=== PATIENT | male | born 1960 | race Caucasian/White ===

== ENCOUNTER → 2019-12-11 | Outpatient (CLI) | payer MEDICARE ==
[2019-12-11 15:04] LABS: BASO # 0.1 (0.0-0.2); BASO % 0.7 % (0.0-2.0); EOS # 0.3 (0.0-0.7); EOS % 3.7 % (0-4.0); GRAN # 4.5 (1.4-6.5); GRAN % 53.6 % (42.2-75.2); HEMATOCRIT 42.2 % (42.0-52.0); HEMOGLOBIN 14.5 g/dl (13.5-18.0); LYMPH # 2.8 (1.2-3.4); LYMPH % 33.6 % (20.0-51.0); MEAN CELL VOLUME 101 fl (80.0-100.0); MEAN CORPUSCULAR HEMOGLOBIN 35 pg (27.0-31.0); MEAN CORPUSCULAR HGB CONC 34 g/dl (33.0-37.0); MEAN PLATELET VOLUME 9.5 fl (7.4-10.4); MONO # 0.7 (0.1-0.6); PLATELET COUNT 219 K/mm3 (130-400); RED BLOOD COUNT 4.19 M/mm3 (4.20-5.60)
[2019-12-11 15:07] LABS: ALBUMIN 4.1 gm/dL (3.5-5.0); BILIRUBIN,TOTAL 1.2 mg/dL (0.0-1.0); CHOLESTEROL RISK RATIO 6.8; CREATININE, serum 0.88 (0.66-1.25); POTASSIUM 4.6 mmol/L (3.4-5.0); TOTAL PROTEIN 7.2 gm/dL (6.4-8.2)
[2019-12-11 15:37] LABS: THYROID STIMULATING HORMONE 1.62 uIU/mL (0.465-4.680)
== END ==
LOC: COL.LAB 14:01
PROVIDERS: Physician Assistant
DX: Z12.5 Encounter for screening for malignant neoplasm of prostate (principal); Z13.29 Encounter for screening for other suspected endocrine disorder; Z13.6 Encounter for screening for cardiovascular disorders; I10 Essential (primary) hypertension

== ENCOUNTER 2019-12-26 19:34 | Observation (INO) | payer MEDICARE ==
[~2019-12-26] VITALS: Ht 170.2 cm; Wt 102.4 kg
[2019-12-26] MEDS ORDERED: PRINIVIL10 MG (19:39)
[2019-12-26] MEDS ORDERED: LOPRESSOR 225 MG/TAB (19:39)
[2019-12-26] MEDS ORDERED: FLEXERIL 1010 MG/TAB (19:45)
[2019-12-26] MEDS ORDERED: CYMBALTA 20MG20 MG (19:45)
[2019-12-26 20:26] LABS: BASO % 0.2 % (0.0-2.0); EOS % 0.1 % (0-4.0); GRAN % 73.8 % (42.2-75.2); HEMATOCRIT 42.3 % (42.0-52.0); HEMOGLOBIN 15.5 g/dl (13.5-18.0); LYMPH # 1.8 (1.2-3.4); MEAN CELL VOLUME 95 fl (80.0-100.0); MEAN CORPUSCULAR HEMOGLOBIN 35 pg (27.0-31.0); MEAN CORPUSCULAR HGB CONC 37 g/dl (33.0-37.0); MEAN PLATELET VOLUME 9.6 fl (7.4-10.4); MONO # 0.6 (0.1-0.6); MONO % 6.7 % (1.7-9.3); PLATELET COUNT 209 K/mm3 (130-400); RED BLOOD COUNT 4.45 M/mm3 (4.20-5.60); REDCELL DISTRIBUTION WIDTH-CV 11.7 % (11.5-14.5)
[2019-12-26 20:44] LABS: ALANINE AMINOTRANSFERASE 27 U/L (4-49); ALBUMIN 4.8 gm/dL (3.5-5.0); ALKALINE PHOSPHATASE 115 U/L (50-136); ANION GAP 12 mmol/L (7-16); AST,SGOT 35 U/L (15-37); BILIRUBIN,TOTAL 2.2 mg/dL (0.0-1.0); BLOOD UREA NITROGEN 14 mg/dL (9-20); CALCIUM 9.2 mg/dL (8.4-10.2); CARBON DIOXIDE 22 mmol/L (22-30); CHLORIDE 103 mmol/L (98-107); GLUCOSE 106 mg/dL (74-106); POTASSIUM 3.9 mmol/L (3.4-5.0); SODIUM 137 mmol/L (137-145); TOTAL PROTEIN 8.1 gm/dL (6.4-8.2)
[2019-12-26 20:56] LABS: TROPONIN-I < 0.012 ng/mL (0.000-0.035)
[2019-12-26 21:41] LABS: COLLECTION METHOD CLEAN CATCH
[2019-12-26 21:47] LABS: MUCOUS Present /lpf; PH 5 (5-8); SQUAMOUS EPITHELIAL None Seen /hpf; URINE APPEARANCE Clear; URINE BACTERIA None Seen /hpf; URINE BILIRUBIN Negative (NEGATIVE); URINE BLOOD 1+ (NEGATIVE); URINE COLOR Yellow; URINE GLUCOSE Negative (NEGATIVE); URINE KETONE Trace (NEGATIVE); URINE LEUKOCYTE ESTERASE Negative (NEGATIVE); URINE NITRATE Negative (NEGATIVE); URINE PROTEIN(semi-quant) 1+ (NEGATIVE); URINE UROBILINOGEN Negative (NEGATIVE)
[2019-12-26 22:44] LABS: TRICYCLIC ANTIDEPRESS URINE POSITIVE
[2019-12-27] VITALS (12 sets, daily range): BP systolic 127–179; BP diastolic 69–104; PULSE 64–77; TEMP 97.6–98.8
[2019-12-27] MEDS ORDERED: NORCO 325 MG-7.1 TAB PO (01:29)
[2019-12-27] MEDS ORDERED: ATIVAN2 MG PO (01:29)
--- NOTE | 2019-12-27 01:41 | NUR ---
ADMITTED FROM E.D. WITH Dx OF [facility] AND FLUXUATING BLOOD PRESSURES. SEE 5 PAGE ADMISSION ASSESSMENT.
[2019-12-27 06:34] LABS: BASO % 0.3 % (0.0-2.0); EOS # 0.2 (0.0-0.7); EOS % 1.8 % (0-4.0); GRAN # 5.2 (1.4-6.5); HEMOGLOBIN 14.7 g/dl (13.5-18.0); LYMPH # 3.4 (1.2-3.4); LYMPH % 35.5 % (20.0-51.0); MEAN CELL VOLUME 97 fl (80.0-100.0); MEAN CORPUSCULAR HEMOGLOBIN 35 pg (27.0-31.0); MEAN CORPUSCULAR HGB CONC 36 g/dl (33.0-37.0); MEAN PLATELET VOLUME 9.8 fl (7.4-10.4); MONO # 0.8 (0.1-0.6); MONO % 8.2 % (1.7-9.3); PLATELET COUNT 210 K/mm3 (130-400); RED BLOOD COUNT 4.22 M/mm3 (4.20-5.60)
[2019-12-27 06:46] LABS: ALANINE AMINOTRANSFERASE 24 U/L (4-49); ALBUMIN 4.5 gm/dL (3.5-5.0); ALKALINE PHOSPHATASE 98 U/L (50-136); ANION GAP 11 mmol/L (7-16); AST,SGOT 37 U/L (15-37); BILIRUBIN,TOTAL 2.3 mg/dL (0.0-1.0); BLOOD UREA NITROGEN 12 mg/dL (9-20); CARBON DIOXIDE 21 mmol/L (22-30); CHLORIDE 106 mmol/L (98-107); CHOLESTEROL 229 mg/dL (120-200); CHOLESTEROL RISK RATIO 7.6; CREATININE, serum 0.72 (0.66-1.25); GLUCOSE 97 mg/dL (74-106); HDL CHOLESTEROL 30 mg/dL; LDL CHOLESTEROL 177 mg/dL; POTASSIUM 3.5 mmol/L (3.4-5.0); SODIUM 138 mmol/L (137-145); TOTAL PROTEIN 7.5 gm/dL (6.4-8.2); TRIGLYCERIDE 112 mg/dL
[2019-12-27 06:58] LABS: TROPONIN-I < 0.012 ng/mL (0.000-0.035)
--- NOTE | 2019-12-27 12:30 | NUR ---
Patients BP was elevated this am. Ativan given once and that seemed to help. Patient has been resting most the morning. He is having increased back pain with right thigh pain. No complaints of nausea. Patient stated he keeps hearing people talking in the room. He stated he has been having hallucinations recently. Physician aware. He is being started on lopressor. Left message [facility] to get patients home med list to know his doses, no return phone call yet. No other changes at this time. Call light within reach.
--- NOTE | 2019-12-27 13:07 | NUR ---
SW met with patient to complete intake. Patient provides that he lives at the [facility], and that he has a SW that is assisting him with finding an apartment so that he will not have to live [facility] the [facility]. Patient is concerned about not having a place to stay upon DC. SW called the [facility]dc and confirmed with staff that patient will still have his same place to stay when he discharges from the hospital. [facility] #[phone]. Staff provided they will need to have DC orders faxed to them when patient discharges. Patient states that he did utilize a cane before, but lost it a time back and was unable to retrieve. Patient states that he is independent with ADL's. PCP is Dr. Grover [facility], and pharmacy is [facility] Patient states that he would appoint his son Dee to be his DPOA-HC, but is unsure of where he is at this time. His number is [phone]. Patient states that he is not concerned about DC when that time comes, he would like SW to contact his SW at [facility] to see if she is working on his apartment and food stamp needs. SW will continue to follow.
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
--- NOTE | 2019-12-27 19:40 | NUR ---
Pt. sitting up in bed at this time. Pt. is A&OX3, assessment complete. IV to rt. hand patent, IV fluids infusing per orders. Pt. reports pain to lower back at a 6 on pain scale, will give pain meds per orders. Pt. denies further needs, call light within reach.
[2019-12-28 01:35] VITALS: BP 152/87; PULSE 63; TEMP 97.5
[2019-12-28 03:51] VITALS: BP 135/94; PULSE 70; TEMP 98.1
[2019-12-28 07:38] VITALS: BP 141/69; PULSE 74; TEMP 98
--- NOTE | 2019-12-28 08:00 | NUR ---
Patient resting in bed eating breakfast at this time. Patient is alert but confused. Patient is cooperative and easily re-directable. Patient does appear to be having minor and mild hallucinations, re orients easily. Patient requests medication for his nerves, administered PRN ativan per detox protocol score. Patient denies further needs at this time, call light within reach, bed alarm on.
[2019-12-28 09:48] VITALS: BP 162/104; PULSE 83; TEMP 98.3
[2019-12-28] MEDS ORDERED: PRINIVIL20 MG PO (10:35)
[2019-12-28] MEDS ORDERED: LOPRESSOR 225 MG/TAB PO (10:36)
[2019-12-28 11:50] VITALS: BP 164/86; PULSE 75; TEMP 98.4
--- NOTE | 2019-12-28 12:15 | NUR ---
Patient removed IV. Catheter appears intact, hemostasis achieved. Discharge teaching completed. Informed patient that a taxi had been called for him, will escort patient to ED entrance when taxi arrives.
--- NOTE | 2019-12-28 12:38 | NUR ---
Initial visit; Patient anxious and talkative. Yenni shared his current problems and thanked Well Service Floorperson for listening and offering suggestions that may help and prayer. Patient states he prays and appeared to hear Well Service Floorperson when she mentioned that God is working through his nurses and Care Management Team to help him find solutions to the issues that brought him here to [place].
--- NOTE | 2019-12-28 13:15 | NUR ---
Patient escorted to ED entrance where he entered a private vehicle.
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
== END 2019-12-28 13:15 | disposition home or self-care (01) ==
LOC: COL.ER 19:34 → SURG 22:05 → ICU 22:05 → COL.ER 22:05 → SURG 12-28 13:15
PROVIDERS: Emergency Medicine; Physician Assistant; ADMIT Student in an Organized Health Care Education/Training Program
DX: I16.0 Hypertensive urgency (principal); G89.29 Other chronic pain; M54.40 Lumbago with sciatica, unspecified side; R25.1 Tremor, unspecified; F17.210 Nicotine dependence, cigarettes, uncomplicated; F20.9 Schizophrenia, unspecified; F10.10 Alcohol abuse, uncomplicated; E80.7 Disorder of bilirubin metabolism, unspecified; Z79.899 Other long term (current) drug therapy; R61 Generalized hyperhidrosis
CPT/HCPCS: G0008; G0378; J1885; J2060; J7030; J7050

== ENCOUNTER 2019-12-30 15:51 | Emergency (ER) | payer MEDICARE ==
[~2019-12-30] VITALS: Ht 172.7 cm; Wt 102.3 kg
[~2019-12-30 15:51] MED LIST: ATIVAN2 MG PO; CYMBALTA 20MG20 MG; FLEXERIL 1010 MG/TAB; LOPRESSOR 225 MG/TAB; LOPRESSOR 225 MG/TAB PO; NORCO 325 MG-7.1 TAB PO; PRINIVIL10 MG; PRINIVIL20 MG PO
[2019-12-30 15:55] VITALS: TEMP 98.6
[2019-12-30 16:25] LABS: BASO % 0.4 % (0.0-2.0); EOS % 0.4 % (0-4.0); GRAN # 7.3 (1.4-6.5); GRAN % 72.9 % (42.2-75.2); HEMATOCRIT 41.1 % (42.0-52.0); HEMOGLOBIN 14.9 g/dl (13.5-18.0); LYMPH # 1.8 (1.2-3.4); MEAN CELL VOLUME 96 fl (80.0-100.0); MEAN CORPUSCULAR HEMOGLOBIN 35 pg (27.0-31.0); MEAN CORPUSCULAR HGB CONC 36 g/dl (33.0-37.0); MEAN PLATELET VOLUME 9.6 fl (7.4-10.4); MONO # 0.8 (0.1-0.6); PLATELET COUNT 207 K/mm3 (130-400); REDCELL DISTRIBUTION WIDTH-CV 11.7 % (11.5-14.5)
[2019-12-30 16:28] LABS: INR 1.1 (0.8-3.0); PROTHROMBIN TIME 12.3 SECONDS (9.7-12.8)
[2019-12-30 16:31] LABS: PARTIAL THROMBOPLASTIN TIME 31.9 SECONDS (26.0-37.0)
[2019-12-30 16:39] LABS: ALANINE AMINOTRANSFERASE 32 U/L (4-49); ALBUMIN 4.7 gm/dL (3.5-5.0); ALKALINE PHOSPHATASE 107 U/L (50-136); ANION GAP 11 mmol/L (7-16); AST,SGOT 39 U/L (15-37); BILIRUBIN,TOTAL 2.2 mg/dL (0.0-1.0); BLOOD UREA NITROGEN 10 mg/dL (9-20); CALCIUM 9.3 mg/dL (8.4-10.2); CARBON DIOXIDE 22 mmol/L (22-30); CHLORIDE 104 mmol/L (98-107); CREATININE, serum 0.68 (0.66-1.25); GLUCOSE 114 mg/dL (74-106); POTASSIUM 3.5 mmol/L (3.4-5.0); SODIUM 137 mmol/L (137-145); TOTAL PROTEIN 7.8 gm/dL (6.4-8.2)
[2019-12-30 16:52] LABS: TROPONIN-I < 0.012 ng/mL (0.000-0.035)
[2019-12-30 21:11] VITALS: BP 161/105; PULSE 89
== END 2019-12-30 21:26 | disposition home or self-care (01) ==
LOC: COL.ER 15:51
PROVIDERS: Family Medicine
DX: R07.89 Other chest pain (principal); I10 Essential (primary) hypertension
CPT/HCPCS: J2060

== ENCOUNTER 2020-02-09 07:00 | Emergency (ER) | payer MEDICARE ==
[~2020-02-09] VITALS: Ht 172.7 cm; Wt 102.7 kg
[~2020-02-09 07:00] MED LIST changes: +FLEXERIL 1010 MG/TAB PO; +LIPITOR20 MG PO
[2020-02-09 07:53] LABS: BASO # 0.1 (0.0-0.2); BASO % 0.6 % (0.0-2.0); EOS # 0.5 (0.0-0.7); EOS % 4.9 % (0-4.0); GRAN # 4.5 (1.4-6.5); GRAN % 47.4 % (42.2-75.2); HEMATOCRIT 43.4 % (42.0-52.0); HEMOGLOBIN 15.1 g/dl (13.5-18.0); LYMPH # 3.6 (1.2-3.4); LYMPH % 37.7 % (20.0-51.0); MEAN CELL VOLUME 98 fl (80.0-100.0); MEAN CORPUSCULAR HEMOGLOBIN 34 pg (27.0-31.0); MEAN CORPUSCULAR HGB CONC 35 g/dl (33.0-37.0); MONO # 0.9 (0.1-0.6); MONO % 9.1 % (1.7-9.3); PLATELET COUNT 175 K/mm3 (130-400); RED BLOOD COUNT 4.41 M/mm3 (4.20-5.60); REDCELL DISTRIBUTION WIDTH-CV 12.6 % (11.5-14.5)
[2020-02-09 08:00] LABS: ALANINE AMINOTRANSFERASE 31 U/L (4-49); ALBUMIN 4.5 gm/dL (3.5-5.0); ALKALINE PHOSPHATASE 108 U/L (50-136); ANION GAP 8 mmol/L (7-16); AST,SGOT 49 U/L (15-37); BILIRUBIN,TOTAL 1.9 mg/dL (0.0-1.0); BLOOD UREA NITROGEN 29 mg/dL (9-20); CALCIUM 9.2 mg/dL (8.4-10.2); CARBON DIOXIDE 23 mmol/L (22-30); CHLORIDE 107 mmol/L (98-107); CREATININE, serum 0.94 (0.66-1.25); GLUCOSE 110 mg/dL (74-106); POTASSIUM 3.8 mmol/L (3.4-5.0); SODIUM 139 mmol/L (137-145); TOTAL PROTEIN 7.6 gm/dL (6.4-8.2)
[2020-02-09 08:12] LABS: ACETAMINOPHEN < 10 ug/mL (10-30); ALCOHOL(ethanol),MEDICAL < 10 mg/dL; SALICYLATE < 1.0 mg/dL
[2020-02-09 08:55] LABS: COLLECTION METHOD CLEAN CATCH
[2020-02-09 09:00] LABS: MUCOUS Present /lpf; PH 5 (5-8); SQUAMOUS EPITHELIAL 0-2 /hpf; URINE APPEARANCE Clear; URINE BACTERIA None Seen /hpf; URINE BILIRUBIN Negative (NEGATIVE); URINE BLOOD Negative (NEGATIVE); URINE COLOR Yellow; URINE GLUCOSE Negative (NEGATIVE); URINE KETONE Negative (NEGATIVE); URINE LEUKOCYTE ESTERASE Negative (NEGATIVE); URINE NITRATE Negative (NEGATIVE); URINE PROTEIN(semi-quant) Negative (NEGATIVE); URINE RBC 0-2 /hpf; URINE UROBILINOGEN Negative (NEGATIVE)
[2020-02-09 09:10] LABS: TRICYCLIC ANTIDEPRESS URINE NEGATIVE
[2020-02-09 19:39] VITALS: TEMP 98.4
[2020-02-09 21:26] LABS: BASO # 0.1 (0.0-0.2); BASO % 0.9 % (0.0-2.0); EOS # 0.4 (0.0-0.7); EOS % 6.5 % (0-4.0); GRAN # 2.3 (1.4-6.5); GRAN % 35.1 % (42.2-75.2); HEMOGLOBIN 14.3 g/dl (13.5-18.0); LYMPH # 3.2 (1.2-3.4); LYMPH % 50.4 % (20.0-51.0); MEAN CELL VOLUME 100 fl (80.0-100.0); MEAN CORPUSCULAR HEMOGLOBIN 34 pg (27.0-31.0); MEAN CORPUSCULAR HGB CONC 34 g/dl (33.0-37.0); MONO # 0.4 (0.1-0.6); MONO % 6.8 % (1.7-9.3); PLATELET COUNT 156 K/mm3 (130-400); RED BLOOD COUNT 4.19 M/mm3 (4.20-5.60)
[2020-02-09 21:34] LABS: BILIRUBIN,TOTAL 2.9 mg/dL (0.0-1.0); CALCIUM 8.7 mg/dL (8.4-10.2); CREATININE, serum 0.99 (0.66-1.25); TOTAL PROTEIN 6.8 gm/dL (6.4-8.2)
[2020-02-09 23:42] VITALS: BP 118/71; PULSE 65
[2020-02-10 00:10] LABS: ARTERIAL BLD GAS O2 SATURATION 94.3 % (92-100); ARTERIAL BLD GAS TCO2 CT 25.8; ARTERIAL BLOOD GAS BASE EXCESS -1.1 (-2-2); ARTERIAL BLOOD GAS HCO3 24.5 meq/L (22-26); ARTERIAL BLOOD GAS PCO2 44.2 mmHg (35-45); ARTERIAL BLOOD GAS pH 7.36 (7.35-7.45)
== END 2020-02-09 23:42 | disposition home or self-care (01) ==
LOC: COL.ER 07:00
PROVIDERS: Emergency Medicine; Family Medicine
DX: R44.0 Auditory hallucinations (principal); F15.10 Other stimulant abuse, uncomplicated; M54.32 Sciatica, left side; M54.31 Sciatica, right side; G89.29 Other chronic pain
CPT/HCPCS: J1170; J1885; J7030

== ENCOUNTER 2020-02-18 10:08 | Emergency (ER) | payer MEDICARE ==
[~2020-02-18] VITALS: Ht 172.7 cm; Wt 90.9 kg
[2020-02-18 10:12] VITALS: TEMP 97.6
[2020-02-18 11:46] LABS: PROTHROMBIN TIME 10.6 SECONDS (9.7-12.8)
[2020-02-18 11:50] LABS: BASO % 0.6 % (0.0-2.0); EOS # 0.1 (0.0-0.7); GRAN # 3.7 (1.4-6.5); GRAN % 56.4 % (42.2-75.2); HEMATOCRIT 39.7 % (42.0-52.0); LYMPH % 29.9 % (20.0-51.0); MEAN CELL VOLUME 98 fl (80.0-100.0); MEAN CORPUSCULAR HEMOGLOBIN 35 pg (27.0-31.0); MEAN CORPUSCULAR HGB CONC 35 g/dl (33.0-37.0); MEAN PLATELET VOLUME 9.8 fl (7.4-10.4); MONO # 0.7 (0.1-0.6); MONO % 10.2 % (1.7-9.3); PLATELET COUNT 212 K/mm3 (130-400); RED BLOOD COUNT 4.05 M/mm3 (4.20-5.60); REDCELL DISTRIBUTION WIDTH-CV 12.7 % (11.5-14.5)
[2020-02-18 12:09] LABS: ALANINE AMINOTRANSFERASE 74 U/L (4-49); ALBUMIN 3.9 gm/dL (3.5-5.0); ALKALINE PHOSPHATASE 99 U/L (50-136); ANION GAP 6 mmol/L (7-16); AST,SGOT 85 U/L (15-37); BILIRUBIN,TOTAL 0.9 mg/dL (0.0-1.0); BLOOD UREA NITROGEN 17 mg/dL (9-20); CALCIUM 8.8 mg/dL (8.4-10.2); CARBON DIOXIDE 25 mmol/L (22-30); CHLORIDE 105 mmol/L (98-107); CREATININE, serum 0.68 (0.66-1.25); GLUCOSE 109 mg/dL (74-106); POTASSIUM 4.5 mmol/L (3.4-5.0); SODIUM 137 mmol/L (137-145); TOTAL PROTEIN 6.5 gm/dL (6.4-8.2)
[2020-02-18 12:23] LABS: TROPONIN-I < 0.012 ng/mL (0.000-0.035)
[2020-02-18 14:32] VITALS: BP 176/106; PULSE 59
== END 2020-02-18 14:30 | disposition home or self-care (01) ==
LOC: COL.ER 10:08
PROVIDERS: Nurse Practitioner Primary Care
DX: M54.5 Low back pain (principal); I10 Essential (primary) hypertension; F17.210 Nicotine dependence, cigarettes, uncomplicated
CPT/HCPCS: J0595

== ENCOUNTER 2020-08-04 16:26 | Emergency (ER) | payer MEDICARE ==
[~2020-08-04] VITALS: Ht 172.7 cm; Wt 113.6 kg
[2020-08-04 16:27] VITALS: TEMP 98
[2020-08-04 16:49] LABS: BASO % 0.7 % (0.0-2.0); EOS % 0.5 % (0-4.0); GRAN # 2.2 (1.4-6.5); GRAN % 53.8 % (42.2-75.2); HEMATOCRIT 45.6 % (42.0-52.0); HEMOGLOBIN 16.8 g/dl (13.5-18.0); LYMPH # 1.3 (1.2-3.4); LYMPH % 30.8 % (20.0-51.0); MEAN CELL VOLUME 98 fl (80.0-100.0); MEAN CORPUSCULAR HEMOGLOBIN 36 pg (27.0-31.0); MEAN CORPUSCULAR HGB CONC 37 g/dl (33.0-37.0); MONO # 0.6 (0.1-0.6); PLATELET COUNT 100 K/mm3 (130-400); RED BLOOD COUNT 4.66 M/mm3 (4.20-5.60); REDCELL DISTRIBUTION WIDTH-CV 11.6 % (11.5-14.5)
[2020-08-04 16:58] LABS: ALBUMIN 4.2 gm/dL (3.5-5.0); CALCIUM 8.4 mg/dL (8.4-10.2); CREATININE, serum 0.54 (0.66-1.25); POTASSIUM 3.1 mmol/L (3.4-5.0); TOTAL PROTEIN 7.6 gm/dL (6.4-8.2)
[2020-08-04 17:09] LABS: TROPONIN-I 0.019 ng/mL (0.000-0.035)
[2020-08-04 17:45] VITALS: BP 156/119; PULSE 74
== END 2020-08-04 17:45 | disposition home or self-care (01) ==
LOC: COL.ER 16:26
PROVIDERS: Emergency Medicine
DX: F10.20 Alcohol dependence, uncomplicated (principal); F20.9 Schizophrenia, unspecified; Y90.8 Blood alcohol level of 240 mg/100 ml or more
CPT/HCPCS: J1885; J2060; J7030

== ENCOUNTER 2020-09-24 11:07 | Inpatient (IN) | payer MEDICARE ==
[~2020-09-24] VITALS: Ht 167.6 cm; Wt 97.2 kg
[2020-09-24 11:34] LABS: BASO % 0.9 % (0.0-2.0); EOS % 0.2 % (0-4.0); GRAN % 68.2 % (42.2-75.2); LYMPH # 0.9 (1.2-3.4); LYMPH % 20.5 % (20.0-51.0); MEAN CELL VOLUME 98 fl (80.0-100.0); MEAN CORPUSCULAR HEMOGLOBIN 36 pg (27.0-31.0); MEAN CORPUSCULAR HGB CONC 36 g/dl (33.0-37.0); MONO # 0.4 (0.1-0.6); MONO % 9.7 % (1.7-9.3); PLATELET COUNT 120 K/mm3 (130-400); RED BLOOD COUNT 4.51 M/mm3 (4.20-5.60); REDCELL DISTRIBUTION WIDTH-CV 12.2 % (11.5-14.5)
[2020-09-24 12:12] LABS: PROTHROMBIN TIME 10.9 SECONDS (9.7-12.8)
[2020-09-24 12:20] LABS: ALBUMIN 3.9 gm/dL (3.5-5.0); BILIRUBIN,TOTAL 2.7 mg/dL (0.0-1.0); CALCIUM 7.8 mg/dL (8.4-10.2); CREATININE, serum 0.53 (0.66-1.25); TOTAL PROTEIN 7.1 gm/dL (6.4-8.2)
[2020-09-24 12:28] LABS: POTASSIUM 2.9 mmol/L (3.4-5.0)
[2020-09-24 13:16] LABS: TROPONIN-I 0.048 ng/mL (0.000-0.035)
--- NOTE | 2020-09-24 17:00 | NUR ---
Pt arrived to floor via w/c at this time with ER staff. Nithin but oriented, will continue to monitor.
[2020-09-24 17:15] VITALS: BP 159/95; PULSE 111; TEMP 99.2
[2020-09-24 18:26] LABS: COLLECTION METHOD CLEAN CATCH
[2020-09-24 18:41] LABS: TRICYCLIC ANTIDEPRESS URINE NEGATIVE
[2020-09-24 18:42] LABS: MUCOUS Present /lpf; PH 6 (5-8); SQUAMOUS EPITHELIAL 0-2 /hpf; URINE APPEARANCE Clear; URINE BACTERIA None Seen /hpf; URINE BILIRUBIN Negative (NEGATIVE); URINE BLOOD 2+ (NEGATIVE); URINE COLOR Amber; URINE GLUCOSE Negative (NEGATIVE); URINE KETONE Trace (NEGATIVE); URINE LEUKOCYTE ESTERASE Negative (NEGATIVE); URINE NITRATE Negative (NEGATIVE); URINE PROTEIN(semi-quant) 2+ (NEGATIVE); URINE UROBILINOGEN >=4.0 mg/dL (NEGATIVE); URINE WBC 0-2 /hpf
--- NOTE | 2020-09-24 19:18 | NUR ---
Pt has been very anxious and tremulous since arriving, called Paddy and received IV Ativan orders. PT is oriented but very shakey and having a hard time feeling anxious about detoxing. Agreeable to plan of care, report given to nightshift nruse who will resume care.
[2020-09-24 19:27] VITALS: BP 183/105; PULSE 118; TEMP 99.4
--- NOTE | 2020-09-24 19:52 | NUR ---
Upon taking report patient visably shaking, increased anxiety, denies auditory or visual hallucinations, updated family and patient on ETOH withdrawl protocol, Ativan 2mg IV given will monitor.
--- NOTE | 2020-09-24 19:53 | NUR ---
Chantelle MORRIS called re: elevated pulse/B/P, withdrawl symptoms and score, NON: Give another Ativan 2mg IVP now. - updated patient on plan.
[2020-09-24 20:29] VITALS: BP 155/97
[2020-09-24 22:06] VITALS: BP 161/117; PULSE 107; TEMP 98.6
[2020-09-24 22:43] VITALS: BP 148/92; PULSE 112
[2020-09-25] VITALS (193 sets, daily range): BP systolic 118–180; BP diastolic 81–113; PULSE 85–118; TEMP 97.3–100.4; O2SAT 90–100
--- NOTE | 2020-09-25 02:28 | NUR ---
Updated Chantelle Stuart on patient status, B/P, withdrawl score, updated son on patient condition. Patient is currently awake, alert, oriented x 4, able to verbalize needs, c/o back pain- prn medication given, following simple commands, updated patient on plan of care.
--- NOTE | 2020-09-25 07:00 | NUR ---
Report received from DC Guzmán.PT in bed resting, requesting pain meds for foot burning pain. Will provide when available.
--- NOTE | 2020-09-25 08:00 | NUR ---
Assessment charted. PT c/o pain to feet bilaterally that is burning and 10/10 pain meds provided. PT is oriented mostly but intermittently confused and is impulsive inbed. Tachycardic, hypertensive, did hallucinat over night, tremulous, diaphoretic and did not rest well. Critical lab values reported to [place] with hospitalist. INT to L and R hands, will provide meds per CIWA protocol, and PRN as requested. WIll continue to monitor.
[2020-09-25 08:01] LABS: CHOLESTEROL RISK RATIO 2.1
[2020-09-25 08:11] LABS: BASO % 0.9 % (0.0-2.0); EOS % 0.9 % (0-4.0); GRAN % 58.4 % (42.2-75.2); HEMATOCRIT 38.6 % (42.0-52.0); LYMPH # 1.1 (1.2-3.4); LYMPH % 31.4 % (20.0-51.0); MEAN CELL VOLUME 101 fl (80.0-100.0); MEAN CORPUSCULAR HGB CONC 35 g/dl (33.0-37.0); MEAN PLATELET VOLUME 11.6 fl (7.4-10.4); MONO # 0.3 (0.1-0.6); MONO % 7.8 % (1.7-9.3); RED BLOOD COUNT 3.84 M/mm3 (4.20-5.60); REDCELL DISTRIBUTION WIDTH-CV 12.4 % (11.5-14.5)
[2020-09-25 08:18] LABS: ALBUMIN 3.5 gm/dL (3.5-5.0); BILIRUBIN,TOTAL 3.1 mg/dL (0.0-1.0); CALCIUM 7.6 mg/dL (8.4-10.2); CREATININE, serum 0.52 (0.66-1.25); TOTAL PROTEIN 6.5 gm/dL (6.4-8.2)
[2020-09-25 08:26] LABS: POTASSIUM 2.8 mmol/L (3.4-5.0)
[2020-09-25 08:42] LABS: TSH w REFLEX 4.33 uIU/mL (0.465-4.680)
[2020-09-25 09:05] LABS: HEMOGLOBIN 13.5 g/dl (13.5-18.0); MEAN CORPUSCULAR HEMOGLOBIN 35 pg (27.0-31.0)
[2020-09-25 09:07] LABS: PLATELET COUNT 49 K/mm3 (130-400)
[2020-09-25 09:43] LABS: INR 1.1 (0.8-3.0)
--- NOTE | 2020-09-25 14:27 | NUR ---
Pt pulled out own IV, appears to be confused and having a hard time tracking
--- NOTE | 2020-09-25 15:17 | NUR ---
Sw met with pt to complete his in intake assesessement. Sw was not able to get full assessment due to the pt was in a lot of pain and was confused when answering questions. Sw was able to speak to his son, Redd Shearer (ph# [phone]). The son informed pt that he is detoxing and this time it is worst and he thinks he needs to be able to make decisions for his dad. The son informed the Sw that he would like to get a DPOA-HC made. The Sw informed the son, due to the pt being confused and out of it that we could not make one at this time. The son was agreeable to wait until he was better. The son thinks that his dad would benefit from inpatient rehab. The son also informed the Sw that he would like to do family therapy with his dad. No other needs stated at this time. Sw to await further recommendations and follow up as needed. D/c: Home Vs Rehab
--- NOTE | 2020-09-25 16:31 | NUR ---
Pt becoming increasingly aggressive and agravated with all encounters, having a hard time keeping him in bed even with family helping constantly. Cammie called and approval received for pt's son Dio or his GF to stay overnight but only 1 can stay at a time. Called Dr. Emanuel and relayed pts current status and received orders to transfer to ICU, called [facility] and there are no beds at this time, will continue to monitor.
--- NOTE | 2020-09-25 19:15 | NUR ---
REPORT RECEIVED FROM DC NORMAN. PATIENT RECEIVED IN BED VERY DIAPHORETIC, TREMELOUS, ANXIOUS TRUYING TO CLIIMBED OUT OF BED. PATIENT IS VERY WEAK UNABLE TO ASSIST WITH REPOSITION. CIWA SCORE WAS 20, ATIVAN 2 MG IV GIVEN BY PREVIOUS NURSE WITH NO EFFECT. HR AND B/P ELEVATED, RR 34. PLAN TO TRANSFER TO ICU. WILL CONTINUE TO MONITOR.
--- NOTE | 2020-09-25 19:21 | NUR ---
Called ALEXANDRA Lockhart with Hospitalist regarding pt current CIWA score, she called [facility] and wants pt in ICU and will work with manager wastewater to facilitate. Report given to DC Lugo who will care.
--- NOTE | 2020-09-25 20:53 | NUR ---
PATENT TRANSFRED TO ICU STARTED ON PRECEDEX DRIP. PATIENT IS VERY AGITATED AND CONFUSES. PATIENT IS TACHYPNEI, TACHYCARDIA AND HIGH B/P. PRECEDEX DRIP WILL INCREASE ACCORDINGLY.
--- NOTE | 2020-09-25 21:19 | NUR ---
PATIENT CONTINUES TO BE RESTLESS PRECEDEX DRIP INCREASE TO 0.4 MCG/KG/HR.
--- NOTE | 2020-09-25 21:44 | NUR ---
PATIENT IS RESTLESS PRECEDEX INCREASE TO 0.5 MCG/KG/HR. RR 42, B/P141/96, HR 95 02 SAT 91% 02 @ 2L NC IN PLACE. HOSPITOLIST ALEXANDRA BOLANOS IN TO VISIT. WILL CONTINUE TO MONITOR.
--- NOTE | 2020-09-25 22:54 | NUR ---
PATIENT RESTLESS, ATTEMPTED TO REMOVED 0XYGEN. CONTINUES TO BE TACHYPNEIC 30-40'S. PRECEDEX DRIP INCREASE TO 0.6 MCG/KG.HR.
[2020-09-26] VITALS (1062 sets, daily range): BP systolic 114–167; BP diastolic 85–105; PULSE 75–89; TEMP 97.1–99; O2SAT 81–100
--- NOTE | 2020-09-26 00:32 | NUR ---
PATIENT RESTING IN BED CONTINUES TO BE TACHYPNEIC RR IN THE 40'S. K 3.2 60 MEQ ORDERED. WILL CONTINUE TO MONITOR.
--- NOTE | 2020-09-26 00:55 | NUR ---
PATIENT TURNED AND REPOSITIONED. INCONTINENT OF URINE, PERICARE PROVIDED. WILL CONTINUE TO MONITOR.
--- NOTE | 2020-09-26 04:57 | NUR ---
PATIENT RESTING COMFORTABLY, O2 SAT 90-91 ON 4 L NC. PRECEDEX DRIP DECREASE TO 0.05MCG/KG/HR. PATIENT REMAINS TACHYPNEIC WITH RR IN THE 30'S. WILL CONTINUE TO MONITOR.
[2020-09-26 05:08] LABS: BASO % 0.4 % (0.0-2.0); EOS % 0.7 % (0-4.0); GRAN # 3.3 (1.4-6.5); GRAN % 72.1 % (42.2-75.2); HEMATOCRIT 39.6 % (42.0-52.0); HEMOGLOBIN 13.8 g/dl (13.5-18.0); LYMPH # 0.8 (1.2-3.4); MEAN CELL VOLUME 101 fl (80.0-100.0); MEAN CORPUSCULAR HEMOGLOBIN 35 pg (27.0-31.0); MEAN CORPUSCULAR HGB CONC 35 g/dl (33.0-37.0); MEAN PLATELET VOLUME 12.8 fl (7.4-10.4); MONO # 0.4 (0.1-0.6); MONO % 8.1 % (1.7-9.3); RED BLOOD COUNT 3.91 M/mm3 (4.20-5.60); REDCELL DISTRIBUTION WIDTH-CV 12.2 % (11.5-14.5)
[2020-09-26 05:20] LABS: CALCIUM 7.5 mg/dL (8.4-10.2); CREATININE, serum 0.5 (0.66-1.25); MAGNESIUM 1.7 mg/dL (1.6-2.3); POTASSIUM 3.7 mmol/L (3.4-5.0)
--- NOTE | 2020-09-26 05:24 | NUR ---
PATIENT SATURATION REMAINS IN THE 90-89 ON 4 L NC. PRECEDEX DRIP DECREASE TO 0.4MCG/KG/HR.
[2020-09-26 05:30] LABS: PLATELET COUNT 33 K/mm3 (130-400)
--- NOTE | 2020-09-26 13:51 | NUR ---
Metal Drill Press Operator met with patient's son, Dio (ph#[phone]) to discuss DPOA-HC. Patient is currently asleep. SW attempted to wake patient but he stated he was tired and in pain. SW advised Dio that SW would re-attempt to discuss DPOA-HC when he is more alert. Dio verbalized understanding. Dio advised that patient is not legally but is "common law" with a woman, Katharina. Dio states patient has three children: himself, Hakan ([place]), and Mirian ([place]). Dio states he has been trying to convince patient to go to alcohol treatment, however understands that patient has to make that decision.
[2020-09-26 18:24] LABS: LACTIC ACID 1.2 mmol/L (0.4-2.0)
[2020-09-26 18:38] LABS: HEMOGLOBIN A1C 5.1 %
[2020-09-26 18:58] LABS: IRON,SERUM 44 ug/dL (35-150)
--- NOTE | 2020-09-26 19:05 | NUR ---
Report given to DC Kothari.
[2020-09-26 19:08] LABS: TOTAL IRON BINDING CAPACITY 252 ug/dL (261-462)
--- NOTE | 2020-09-26 19:23 | NUR ---
PT Report given to DC Shabazz.
--- NOTE | 2020-09-26 20:00 | NUR ---
Assessment complete. Pt is alert but cannot answer orientation questions appropriately. He is repositioned in bed for comfort and he denies further needs. Call light within reach.
[2020-09-27] VITALS (478 sets, daily range): BP systolic 116–156; BP diastolic 84–114; PULSE 76–122; TEMP 97.8–99.4; O2SAT 55–99
[2020-09-27 05:49] LABS: BASO % 0.6 % (0.0-2.0); EOS # 0.1 (0.0-0.7); EOS % 1.9 % (0-4.0); GRAN # 3.6 (1.4-6.5); GRAN % 67.8 % (42.2-75.2); HEMATOCRIT 39.9 % (42.0-52.0); LYMPH % 18.4 % (20.0-51.0); MEAN CELL VOLUME 101 fl (80.0-100.0); MEAN CORPUSCULAR HEMOGLOBIN 35 pg (27.0-31.0); MEAN CORPUSCULAR HGB CONC 35 g/dl (33.0-37.0); MONO # 0.6 (0.1-0.6); MONO % 10.7 % (1.7-9.3); RED BLOOD COUNT 3.95 M/mm3 (4.20-5.60)
[2020-09-27 05:55] LABS: PLATELET COUNT 42 K/mm3 (130-400)
[2020-09-27 05:57] LABS: ALBUMIN 3.5 gm/dL (3.5-5.0); BILIRUBIN,TOTAL 3.8 mg/dL (0.0-1.0); CALCIUM 7.9 mg/dL (8.4-10.2); CREATININE, serum 0.54 (0.66-1.25); POTASSIUM 3.7 mmol/L (3.4-5.0); TOTAL PROTEIN 6.5 gm/dL (6.4-8.2)
--- NOTE | 2020-09-27 07:30 | NUR ---
Bedside shift report given to DC Gentile.
[2020-09-27 16:26] LABS: FOLATE (FOLIC ACID) 15.4 ng/mL (2.0-20.0)
[2020-09-27 17:13] LABS: HAPTOGLOBIN 58 mg/dL (40-268)
--- NOTE | 2020-09-27 17:46 | NUR ---
REPORT GIVEN TO SELAM IRWIN. ALL QUESTION ANSWERED. PT EATING DINNER THEN WILL TRANSFER TO WHEELCHAIR AND TAKE TO ROOM 312.
--- NOTE | 2020-09-27 18:25 | NUR ---
PT TRANSFERED TO WHEELCHAIR. PT TAKEN UP TO ROOM 313. SELAM IRWIN MET BEDSIDE AND ASSISTED PT TO BED.
[2020-09-28] VITALS (13 sets, daily range): BP systolic 134–166; BP diastolic 80–115; PULSE 108–137; TEMP 97.8–99.3
--- NOTE | 2020-09-28 01:10 | NUR ---
Resting quielty, CIWA scores continue, medicated per MAR with good effect, VS stable, using call horton appropriately, no c/o at this time, updated on plan of care.
[2020-09-28 06:34] LABS: HEMATOCRIT 38.5 % (42.0-52.0); HEMOGLOBIN 13.5 g/dl (13.5-18.0); MEAN CELL VOLUME 102 fl (80.0-100.0); MEAN CORPUSCULAR HEMOGLOBIN 36 pg (27.0-31.0); MEAN CORPUSCULAR HGB CONC 35 g/dl (33.0-37.0); MEAN PLATELET VOLUME 10.2 fl (7.4-10.4); PLATELET COUNT 74 K/mm3 (130-400); RED BLOOD COUNT 3.79 M/mm3 (4.20-5.60); REDCELL DISTRIBUTION WIDTH-CV 12.5 % (11.5-14.5)
[2020-09-28 06:44] LABS: ALBUMIN 3.3 gm/dL (3.5-5.0); BILIRUBIN,TOTAL 2.9 mg/dL (0.0-1.0); CALCIUM 8.2 mg/dL (8.4-10.2); CREATININE, serum 0.54 (0.66-1.25); MAGNESIUM 1.5 mg/dL (1.6-2.3); POTASSIUM 3.4 mmol/L (3.4-5.0); TOTAL PROTEIN 6.5 gm/dL (6.4-8.2)
--- NOTE | 2020-09-28 07:53 | NUR ---
This RN entered the room d/t the patient's bed alarm going off. The patient had just adjusted himself in bed and had not attempted to get up. The patient grew very tearful and said he felt like he was "locked up". The patient stated that he had visitors living on the 1st floor that he wanted to come up. This RN asked the patient if he knew where he was, and he said "Yes, [address]". Then he explained that the people from his apartment live on the 1st floor. The patient began crying again and said that he was lonely. Tremors are present and very obvious. Patient is eating breakfast and tolerating it well with no nausea or vomiting. Patient verbalized understanding that he needs assistance when getting up.
--- NOTE | 2020-09-28 09:18 | NUR ---
Patient is visibly anxious. 2mg of IV lorazepam was given for a CIWA of 9. At times it is unclear how oriented the patient is. This RN asked the patient if he knew where he was, what year it was, who the current president was, and the patient's . The patient answered all questions correctly.
[2020-09-28] MEDS ORDERED: NORCO 325 MG-7.1 TAB PO ×2 (10:27)
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
--- NOTE | 2020-09-28 19:19 | NUR ---
This RN gave the patient 4mg of lorazepam as ordered by the provider for his CIWA score of 12.
--- NOTE | 2020-09-28 22:44 | NUR ---
Call placed to Susan Lance- notified of Blood pressure, pulse, general patient condition- diaphoretic, hallucinations, uncontrolled anxiety, inability to follow simple commands, confusion- will send patient to ICU per Susan, updated patient on plan of care, updated patient on plan of care.
[2020-09-29] VITALS (821 sets, daily range): BP systolic 106–171; BP diastolic 75–132; PULSE 58–112; TEMP 98–98.9; O2SAT 31–100
--- NOTE | 2020-09-29 00:11 | NUR ---
Received report from medical nurseArielle.
--- NOTE | 2020-09-29 00:11 | NUR ---
Report called to ICU charge, assisting patient in bed to ICU room. all belongings with patient, attempted to contact deng chadwick and his Significant other as listed - no return call at this time.
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
[2020-09-29 01:25] LABS: BASO % 0.8 % (0.0-2.0); EOS # 0.1 (0.0-0.7); EOS % 2.1 % (0-4.0); GRAN % 54.3 % (42.2-75.2); HEMATOCRIT 38.9 % (42.0-52.0); HEMOGLOBIN 13.4 g/dl (13.5-18.0); LYMPH % 26.3 % (20.0-51.0); MEAN CELL VOLUME 102 fl (80.0-100.0); MEAN CORPUSCULAR HEMOGLOBIN 35 pg (27.0-31.0); MEAN CORPUSCULAR HGB CONC 34 g/dl (33.0-37.0); MEAN PLATELET VOLUME 10.6 fl (7.4-10.4); MONO # 0.6 (0.1-0.6); PLATELET COUNT 95 K/mm3 (130-400); REDCELL DISTRIBUTION WIDTH-CV 12.6 % (11.5-14.5)
[2020-09-29 01:41] LABS: ALBUMIN 3.4 gm/dL (3.5-5.0); BILIRUBIN,TOTAL 2.6 mg/dL (0.0-1.0); CALCIUM 8.8 mg/dL (8.4-10.2); CREATININE, serum 0.64 (0.66-1.25); POTASSIUM 4.2 mmol/L (3.4-5.0); TOTAL PROTEIN 6.8 gm/dL (6.4-8.2)
[2020-09-29 01:46] LABS: MAGNESIUM 2.1 mg/dL (1.6-2.3)
--- NOTE | 2020-09-29 04:03 | NUR ---
Patient becoming increasingly restless and agitated beginning about 0100. Patient had removed all monitoring equipment and had pulled out peripheral IV. A 22G placed in the right wrist. Mitts applied for line management and patient safety. Precedex titrated to max ordered dose of 0.7 mcg/kg/hr by 0145. Patient's CIWA score of 11 at 0200 warrented 4mg IV Ativan. Agitation becoming more aggressive; patient repeatedly attempting to climb out of bed and he continues to exhibit auditory and visual hallucinations. filing and polishing supervisor, Haylee, at bedside. Susan notified at 0257; she requested AGA be consulted. Precedex max dose changed to 1 mcg/kg/hr by Dr. Godfrey. Precedex titrated accordingly with no effect. Patient continues to avidly attempt to get out of bed and remove monitoring equipment. Dr. Godfrey notified; received orders for Haldol 5mg IV at 0338. Haldol administered at 0340. Patient currently sleeping quietly in bed. Vitals within normal limits. Bed in lowest position, all alarms on.
--- NOTE | 2020-09-29 07:15 | NUR ---
Report given to DC Stout.
--- NOTE | 2020-09-29 16:38 | NUR ---
Patient transferred to the ICU overnight. SHADIA spoke with DC Stout who advised patient is currently sedated and would not be able to discuss discharge plan at this time. SW to continue to follow up.
--- NOTE | 2020-09-29 17:42 | NUR ---
Pt waking up aggitated and confused - pt calmed with reorientation and education on last nights events. Pt refusing meds, hydration, oral care and food. Reorientation recall limited
--- NOTE | 2020-09-29 19:05 | NUR ---
Received report from DC Stout.
--- NOTE | 2020-09-29 20:00 | NUR ---
Patient awakens requesting urinal. Patient assisted; voiding 600mL of clear, jagruti urine. Patient's bed linens exchanged. He is alert, although drowsy, and answers 3/4 orientation questions appropriately. Provided patient with ice water, which was tolerated well. Able to administer oral medications. BPs have progressively gotten higher, with last pressure 166/118, patient's forehead is visibly sweaty, and he is somewhat restless. Tremors clearly visible. Administered 2mg IV Ativan for CIWA score of 8. Patient is pleasant with staff, easily redirected.
[2020-09-30] VITALS (984 sets, daily range): BP systolic 116–138; BP diastolic 67–96; PULSE 67–82; TEMP 97.8–99; O2SAT 88–100
[2020-09-30 04:06] LABS: HEMATOCRIT 40.5 % (42.0-52.0); MEAN CELL VOLUME 102 fl (80.0-100.0); MEAN CORPUSCULAR HEMOGLOBIN 35 pg (27.0-31.0); MEAN CORPUSCULAR HGB CONC 35 g/dl (33.0-37.0); MEAN PLATELET VOLUME 10.5 fl (7.4-10.4); PLATELET COUNT 130 K/mm3 (130-400); RED BLOOD COUNT 3.96 M/mm3 (4.20-5.60); REDCELL DISTRIBUTION WIDTH-CV 12.3 % (11.5-14.5)
[2020-09-30 04:17] LABS: ALBUMIN 3.3 gm/dL (3.5-5.0); BILIRUBIN,TOTAL 2.2 mg/dL (0.0-1.0); CALCIUM 8.7 mg/dL (8.4-10.2); CREATININE, serum 0.48 (0.66-1.25); MAGNESIUM 1.5 mg/dL (1.6-2.3); POTASSIUM 4.4 mmol/L (3.4-5.0); TOTAL PROTEIN 6.5 gm/dL (6.4-8.2)
--- NOTE | 2020-09-30 10:57 | NUR ---
Test Center Administrator followed up with patient to discuss discharge planning. SW reviewed PT/OT recommendations which advised that patient may need post acute rehab. Patient is unsure about this and does not want to make any decisions today, however is agreeable to have referrals sent to [facility] and local SNFs. SHADIA contacted Norah [facility] Director to give referral. SHADIA also faxed referrals to [facility] and [facility]. SW attempted to contact patient's son, Dio to review discharge plan and left a message. SHADIA attempted to contact Dio at both phone numbers, and [phone]. Patient has Medicare [employer] so SW faxed clinicals to [facility] to start the prior authorization process. Discharge Plan: Pending screens from [facility], [facility], and [facility].
--- NOTE | 2020-09-30 11:19 | NUR ---
PT is resting in bed this am. PT awakes to name. PT is able to answer , where he is, the situation and who the president is correctly. PT denies pain. PT takes PO medications without incident. PT consumes 100% of breakfast. PT agrees to use call light for any needs. Bed alarm on.
[2020-09-30 12:25] LABS: A/G RATIO (PEP) 1.04 (()); BETA GLOBULINS (PEP) 0.7 g/dL (0.7-1.2)
--- NOTE | 2020-09-30 13:04 | NUR ---
Panchito at [facility] reviewed referral and advised they cannot meet patient's needs at this time.
--- NOTE | 2020-09-30 19:00 | NUR ---
Received report from DC Langley.
--- NOTE | 2020-09-30 19:11 | NUR ---
PT report given to DC Madsen.
--- NOTE | 2020-09-30 19:40 | NUR ---
Patient resting quietly in bed. Patient's son, Redd, at bedside. All vitals within normal limits. Patient denies any pain or discomfort. Reports feeling some anxiety. Continues to receive precedex drip at 0.3 mcg/kg/hr, tolerating well. Patient answering all orientation questions appropriately; he is pleasant with staff and visitors.
[2020-10-01] VITALS (577 sets, daily range): BP systolic 100–158; BP diastolic 62–99; PULSE 61–87; TEMP 97.5–99.1; O2SAT 61–99
[2020-10-01 05:07] LABS: HEMOGLOBIN 13.8 g/dl (13.5-18.0); MEAN CELL VOLUME 103 fl (80.0-100.0); MEAN CORPUSCULAR HEMOGLOBIN 36 pg (27.0-31.0); MEAN CORPUSCULAR HGB CONC 35 g/dl (33.0-37.0); MEAN PLATELET VOLUME 10.7 fl (7.4-10.4); PLATELET COUNT 156 K/mm3 (130-400); RED BLOOD COUNT 3.88 M/mm3 (4.20-5.60); REDCELL DISTRIBUTION WIDTH-CV 12.3 % (11.5-14.5)
[2020-10-01 05:18] LABS: ALBUMIN 3.4 gm/dL (3.5-5.0); BILIRUBIN,TOTAL 1.8 mg/dL (0.0-1.0); CALCIUM 8.9 mg/dL (8.4-10.2); CREATININE, serum 0.66 (0.66-1.25); MAGNESIUM 1.7 mg/dL (1.6-2.3); POTASSIUM 4.2 mmol/L (3.4-5.0); TOTAL PROTEIN 6.6 gm/dL (6.4-8.2)
--- NOTE | 2020-10-01 19:14 | NUR ---
PT REPORT GIVEN TO DC BRUNO
--- NOTE | 2020-10-01 20:45 | NUR ---
Assessment complete and charted. Patient reported severe pain in hands and feet/lower legs. Offered flexeril. Refused. Would like to try morphine and next time agrees to flexeril. Provided to patient. Given ativan per detox protocol. Call light in reach.
[2020-10-02] VITALS (215 sets, daily range): BP systolic 108–136; BP diastolic 75–98; PULSE 75–97; TEMP 97.8–98.8; O2SAT 65–100
--- NOTE | 2020-10-02 | NUR ---
Assessment complete and charted. Patient resting in bed. Reporting anxiety. Scores 5 on CWAL. Given PRN ativan at this time.
[2020-10-02 04:35] LABS: BASO # 0.1 (0.0-0.2); BASO % 1.2 % (0.0-2.0); EOS # 0.2 (0.0-0.7); EOS % 4.1 % (0-4.0); GRAN # 3.5 (1.4-6.5); GRAN % 58.9 % (42.2-75.2); HEMATOCRIT 41.9 % (42.0-52.0); HEMOGLOBIN 14.4 g/dl (13.5-18.0); LYMPH # 1.2 (1.2-3.4); LYMPH % 20.1 % (20.0-51.0); MEAN CELL VOLUME 104 fl (80.0-100.0); MEAN CORPUSCULAR HEMOGLOBIN 36 pg (27.0-31.0); MEAN CORPUSCULAR HGB CONC 34 g/dl (33.0-37.0); MEAN PLATELET VOLUME 10.3 fl (7.4-10.4); MONO # 0.9 (0.1-0.6); MONO % 14.8 % (1.7-9.3); PLATELET COUNT 223 K/mm3 (130-400); RED BLOOD COUNT 4.05 M/mm3 (4.20-5.60); REDCELL DISTRIBUTION WIDTH-CV 12.2 % (11.5-14.5)
[2020-10-02 04:46] LABS: CREATININE, serum 0.65 (0.66-1.25)
--- NOTE | 2020-10-02 07:13 | NUR ---
Report given to DC Ferguson
--- NOTE | 2020-10-02 10:44 | NUR ---
Patient is cooperative with staff but very impulsive. Has attempted to get up out of chair and bed several times without assistance. Reminded frequently to use call light if assistance is needed. Call light left within reach and bed alarm in use. Will continue to monitor.
--- NOTE | 2020-10-02 19:15 | NUR ---
Received report from DC Ferguson.
--- NOTE | 2020-10-02 21:00 | NUR ---
Assessment complete. Patient answers orientation questions appropriately, although he is becoming increasingly impulsive and makes several attempts to get out of bed. Attempting to redirect patient and minimize sources of stimulation. Patient sleeping only for short periods at a time. Vitals continue to be within normal limits. Dosing PRN ativan per [facility] protocol.
[2020-10-03] VITALS (531 sets, daily range): BP systolic 70–215; BP diastolic 46–136; PULSE 66–110; TEMP 97.7–98.6; O2SAT 54–100
--- NOTE | 2020-10-03 03:00 | NUR ---
This RN outside of patient room when a loud "thud," was heard at 0243. This RN immediately entered patient room to find patient laying on the floor in a left-laying position, propped up on his elbow, with his head near the toilet and sink area. Patient denies having hit head upon initial assessment. No new bruising or injuries noted by staff. All vitals within normal limits. Patient assisted back to bed with assistance of Mary Kaplan RN. Susan hospitalist, notified. Patient taken for head/neck CT.
--- NOTE | 2020-10-03 04:14 | NUR ---
Attempted to update patient's son, Redd, via phone. No answer.
--- NOTE | 2020-10-03 05:30 | NUR ---
Patient continues to repeatedly attempt to get out of bed. Visual and auditory hallucinations becoming more prominent. Staff attempts to redirect patient are unsuccessful. As soon as staff exits patient room, he removes monitoring equipment and tries to climb out of bed. Staff witnesses patient messing with bed controls and touch screen in order to quiet fall alarms. Precedex restarted for patient safety.
[2020-10-03 05:51] LABS: BASO # 0.1 (0.0-0.2); BASO % 1.1 % (0.0-2.0); EOS # 0.2 (0.0-0.7); EOS % 3.6 % (0-4.0); GRAN # 4.1 (1.4-6.5); GRAN % 61.8 % (42.2-75.2); HEMATOCRIT 42.1 % (42.0-52.0); HEMOGLOBIN 14.2 g/dl (13.5-18.0); LYMPH # 1.2 (1.2-3.4); MEAN CELL VOLUME 104 fl (80.0-100.0); MEAN CORPUSCULAR HEMOGLOBIN 35 pg (27.0-31.0); MEAN CORPUSCULAR HGB CONC 34 g/dl (33.0-37.0); MEAN PLATELET VOLUME 10.2 fl (7.4-10.4); PLATELET COUNT 266 K/mm3 (130-400); RED BLOOD COUNT 4.04 M/mm3 (4.20-5.60)
[2020-10-03 06:01] LABS: CALCIUM 9.4 mg/dL (8.4-10.2); CREATININE, serum 0.67 (0.66-1.25); POTASSIUM 4.1 mmol/L (3.4-5.0)
--- NOTE | 2020-10-03 07:00 | NUR ---
Report given to DC Langley.
--- NOTE | 2020-10-03 07:10 | NUR ---
During report from DC Madsen. PT is continuously attempting to get out of bed and having auditory/visual hallucinations. PT is agitated and unable to follow commands. Redirection and distraction are used to help patient calm however this is unsuccessful. Dr. Blanco is notified and Dr. Loo is consulted.
--- NOTE | 2020-10-03 08:09 | NUR ---
0801- time out RT, LEAD CYTOGENETIC TECHNOLOGIST, and RN bedside for intubation 0803- size 8.[address] 24 at lip, color change noted, lung sounds auculated bilaterally 0806- OG tube placed. X-ray called for et tube placement chest xray one view
--- NOTE | 2020-10-03 09:05 | NUR ---
PTs BPs were with a MAP under 65. Per Dr. Loo attempt to come down on precedex and propofol and increase fentanyl drip if needed for sedation.
--- NOTE | 2020-10-03 09:14 | NUR ---
PT WAS INTUBATED 0803 DUE TO COMBATIVE BEHAVIOR SECONDARY TO ADMISSION FOR ETOH. PT WAS INTUBATED WITH AN 8.0 ETT WITH NO COMPLICATIONS. INTITIAL VENT SETTINGS PROVIDED BY DR LEAHY.
[2020-10-03 09:37] LABS: ARTERIAL BLD GAS TCO2 CT 23.8; ARTERIAL BLOOD GAS BASE EXCESS 1.2 (-2-2); ARTERIAL BLOOD GAS HCO3 22.9 meq/L (22-26); ARTERIAL BLOOD GAS PCO2 28.7 mmHg (35-45); ARTERIAL BLOOD GAS PO2 99.6 mmHg (80-100); ARTERIAL BLOOD GAS pH 7.52 (7.35-7.45)
[2020-10-03 10:52] LABS: PHOSPHOROUS 4.6 mg/dL (2.5-4.5)
[2020-10-03 10:59] LABS: PRE ALBUMIN 20.1 mg/dL (17.6-36.0)
[2020-10-03 11:44] LABS: ARTERIAL BLD GAS O2 SATURATION 97.3 % (92-100); ARTERIAL BLD GAS TCO2 CT 24.7; ARTERIAL BLOOD GAS BASE EXCESS -0.3 (-2-2); ARTERIAL BLOOD GAS HCO3 23.6 meq/L (22-26); ARTERIAL BLOOD GAS PCO2 36.4 mmHg (35-45); ARTERIAL BLOOD GAS PO2 95.9 mmHg (80-100); ARTERIAL BLOOD GAS pH 7.43 (7.35-7.45)
--- NOTE | 2020-10-03 16:52 | NUR ---
Dr. Blanco notified of a call from "[facility]" on this patient. A [facility] called requesting a "Doc to Doc" for assisted care placement. Dr. Blanco is not aware of this and would like social work to follow up on 10/04/20.
--- NOTE | 2020-10-03 20:03 | NUR ---
1844- This RN was notified PT BP was low. As patient was assessed there was zero response to painful stimulus and PT pupils were pinpoint. Fentanyl and propfol placed on standby. DC Aldridge hung levophed after orderes were received from Chantelle MORRIS. PTs HR quickly dropped to 40s and 30s. Radial pulses present bilaterally. Pt still not responding to stimulus. 2 doses of Narcan were given with no repsonse. Romazicon given and PT started to wake up during suctioning of the ET tube. PT opens eyes and begins to try and get out of bed. eICU suggests restarting Propofol at previous dose and to lower fentanyl. Propofol started back at 35 mcg/kg/min and fentanyl started at 25 mcg/hr.
--- NOTE | 2020-10-03 20:17 | NUR ---
PT report given to DC Parsons.
--- NOTE | 2020-10-03 21:00 | NUR ---
Assessment complete and charted. Patient on levophed for blood pressures. Sedation titrated due to patient awake and pulling aganist restraints. Does not follow commands at this time.
[2020-10-04] VITALS (491 sets, daily range): BP systolic 81–184; BP diastolic 55–111; PULSE 75–109; TEMP 98.3–99.8; O2SAT 68–100
--- NOTE | 2020-10-04 00:28 | NUR ---
Patient awake fighting vent. Sedation increased. Bath given.
--- NOTE | 2020-10-04 05:00 | NUR ---
Patient aggitated at periods throughout night. Sedation increased as appropriate. Resting in bed this AM.
--- NOTE | 2020-10-04 05:00 | NUR ---
Patient aggitated at periods throughout night. Sedation increased as appropriate. Resting in bed this AM.
[2020-10-04 05:06] LABS: ARTERIAL BLD GAS O2 SATURATION 98.3 % (92-100); ARTERIAL BLD GAS TCO2 CT 29.4; ARTERIAL BLOOD GAS HCO3 27.9 meq/L (22-26); ARTERIAL BLOOD GAS PCO2 47.9 mmHg (35-45); ARTERIAL BLOOD GAS PO2 120.1 mmHg (80-100); ARTERIAL BLOOD GAS pH 7.38 (7.35-7.45)
--- NOTE | 2020-10-04 05:10 | NUR ---
Sedation vacation not preformed. Patient awake and aggitation on current sedation. Propofol was increased to 50mcg and orders for precedex received from [facility].
--- NOTE | 2020-10-04 05:34 | NUR ---
PT NOT INTUBATED AT THIS TIME. PT HAS NOT BEEN INTUBATED FOR MORE THAN 24 HOURS THEREFORE PER PROTOCOL WEAN TRIAL IS NOT TO BE PERFORMED.
[2020-10-04 06:27] LABS: BASO # 0.1 (0.0-0.2); BASO % 1.2 % (0.0-2.0); EOS # 0.3 (0.0-0.7); EOS % 4.1 % (0-4.0); HEMATOCRIT 44.1 % (42.0-52.0); HEMOGLOBIN 15.2 g/dl (13.5-18.0); LYMPH # 1.8 (1.2-3.4); LYMPH % 21.4 % (20.0-51.0); MEAN CELL VOLUME 103 fl (80.0-100.0); MEAN CORPUSCULAR HEMOGLOBIN 36 pg (27.0-31.0); MEAN CORPUSCULAR HGB CONC 35 g/dl (33.0-37.0); MEAN PLATELET VOLUME 9.9 fl (7.4-10.4); MONO # 1.1 (0.1-0.6); MONO % 12.7 % (1.7-9.3); PLATELET COUNT 345 K/mm3 (130-400); RED BLOOD COUNT 4.27 M/mm3 (4.20-5.60); REDCELL DISTRIBUTION WIDTH-CV 11.9 % (11.5-14.5)
[2020-10-04 06:37] LABS: CALCIUM 9.2 mg/dL (8.4-10.2); CREATININE, serum 0.92 (0.66-1.25); MAGNESIUM 1.9 mg/dL (1.6-2.3); PHOSPHOROUS 5.8 mg/dL (2.5-4.5); POTASSIUM 3.7 mmol/L (3.4-5.0)
--- NOTE | 2020-10-04 07:20 | NUR ---
RECEIVED REPORT FROM DC BRUNO. PT RESTING ON CURRENT VENT SETTINGS: TV 400, PEEP 5, RR 18, FIO2 40%. FC PATENT AND DRAINING TO GRAVITY. SEE GTT FLOWSHEET. VSS. [employer] MEMBER IN PLACE. NOTED PT IS A LITTLE AGITATED, WILL MONITOR CLOSELY.
--- NOTE | 2020-10-04 07:36 | NUR ---
Report given to Jennifer IRWIN
--- NOTE | 2020-10-04 08:35 | NUR ---
DR LEAHY AT BEDSIDE FOR ASSESSMENT. STATES DO NOT USE PRECEDEX AT THIS TIME BECAUSE PT IS NOT AROUSABLE AND WILL REASSESS AT ANOTHER TIME. PHYSICIAN ORDERS OGT TO BE PUHED DOWN 10 CM. NOW AT 80CM AT THE LIP.
--- NOTE | 2020-10-04 14:09 | NUR ---
Recieved a call from Jen with [facility] stating that the Peer to Peer for placement upon discharge had not been completed and they are denying request. However pt's status had worsened after the request had been made and the pt was transferred to ICU instead of moving toward discharge. Jen had spoken with Natalie RENO/Korin IRWIN.
--- NOTE | 2020-10-04 19:05 | NUR ---
Received report from DC Rodriguez.
--- NOTE | 2020-10-04 20:30 | NUR ---
Patient resting quietly in bed, tolerating ventilator well. Awakens easily to speech. Does not follow verbal commands at this time although he does move all extremities in bed in attempts to sit up. Vitals within normal limits. Continues to receive propofol, fentanyl, and levophed drips. No further needs noted.
[2020-10-05] VITALS (583 sets, daily range): BP systolic 93–140; BP diastolic 56–88; PULSE 76–100; TEMP 98.8–100.1; O2SAT 62–100
[2020-10-05 05:24] LABS: BASO # 0.1 (0.0-0.2); BASO % 1.5 % (0.0-2.0); EOS # 0.3 (0.0-0.7); GRAN % 59.6 % (42.2-75.2); HEMATOCRIT 43.6 % (42.0-52.0); HEMOGLOBIN 14.8 g/dl (13.5-18.0); LYMPH # 2.1 (1.2-3.4); LYMPH % 25.2 % (20.0-51.0); MEAN CELL VOLUME 104 fl (80.0-100.0); MEAN CORPUSCULAR HEMOGLOBIN 35 pg (27.0-31.0); MEAN CORPUSCULAR HGB CONC 34 g/dl (33.0-37.0); MONO # 0.8 (0.1-0.6); MONO % 8.9 % (1.7-9.3); PLATELET COUNT 367 K/mm3 (130-400); RED BLOOD COUNT 4.19 M/mm3 (4.20-5.60); REDCELL DISTRIBUTION WIDTH-CV 11.8 % (11.5-14.5)
[2020-10-05 05:28] LABS: ARTERIAL BLD GAS O2 SATURATION 96.4 % (92-100); ARTERIAL BLD GAS TCO2 CT 28.5; ARTERIAL BLOOD GAS BASE EXCESS 1.8 (-2-2); ARTERIAL BLOOD GAS HCO3 27.1 meq/L (22-26); ARTERIAL BLOOD GAS PCO2 44.5 mmHg (35-45); ARTERIAL BLOOD GAS PO2 85.8 mmHg (80-100)
[2020-10-05 05:36] LABS: CALCIUM 9.1 mg/dL (8.4-10.2); CREATININE, serum 0.93 (0.66-1.25); POTASSIUM 4.8 mmol/L (3.4-5.0)
--- NOTE | 2020-10-05 05:42 | NUR ---
PT BECAME AGITATED WITH SEDATION VACATION WELL TACHYCARDIC THEREFORE NO WEAN TRIAL COULD BE PERFORMED. PT ON DOCUMENTED SETTINGS.
--- NOTE | 2020-10-05 07:00 | NUR ---
RECEIVED REPORT FROM DC RUDOLPH. PT RESTING EASILY ON CURRENT VENT SETTINGS: TV 420, PEEP 5, FIO2 40%, RR 18. FC PATENT AND DRAINING TO GRAVITY. SEE GTT FLOWSHEET. TILTROTOR CREW CHIEF IN PLACE. TF INFUSING AT 45ML/HR TO OGT THAT IS AT 80CM AT THE LIP. VSS.
--- NOTE | 2020-10-05 09:00 | NUR ---
DR LEAHY AT BEDSIDE FOR ASSESSMENT. PT IS THRASHING AND COUGHING AGAINST VENTILATOR. PROVIDER REQUEST FENT GTT INCREASED TO 125MCG.HR AND ATIVAN GIVEN, SEE MAR AND GTT FLOWSHEET FOR DOCUMENTATIONS. VSS.
--- NOTE | 2020-10-05 20:00 | NUR ---
Assessment complete. Pt is on the ventilator and is tolerating it well. Pt repositioned in bed. Pt is now resting quietly and appears comfortable. Call light within reach.
[2020-10-06] VITALS (619 sets, daily range): BP systolic 81–110; BP diastolic 53–81; PULSE 91–122; TEMP 98.9–100.3; O2SAT 73–100
[2020-10-06 05:39] LABS: ARTERIAL BLD GAS O2 SATURATION 96.2 % (92-100); ARTERIAL BLD GAS TCO2 CT 30.1; ARTERIAL BLOOD GAS BASE EXCESS 3.3 (-2-2); ARTERIAL BLOOD GAS HCO3 28.7 meq/L (22-26); ARTERIAL BLOOD GAS PCO2 46.2 mmHg (35-45); ARTERIAL BLOOD GAS PO2 79.1 mmHg (80-100); ARTERIAL BLOOD GAS pH 7.41 (7.35-7.45)
[2020-10-06 05:43] LABS: HEMATOCRIT 44.6 % (42.0-52.0); HEMOGLOBIN 14.9 g/dl (13.5-18.0); MEAN CELL VOLUME 105 fl (80.0-100.0); MEAN CORPUSCULAR HEMOGLOBIN 35 pg (27.0-31.0); MEAN CORPUSCULAR HGB CONC 33 g/dl (33.0-37.0); MEAN PLATELET VOLUME 10.6 fl (7.4-10.4); PLATELET COUNT 313 K/mm3 (130-400); RED BLOOD COUNT 4.23 M/mm3 (4.20-5.60); REDCELL DISTRIBUTION WIDTH-CV 11.7 % (11.5-14.5)
[2020-10-06 05:55] LABS: CALCIUM 9.2 mg/dL (8.4-10.2); CREATININE, serum 0.78 (0.66-1.25); MAGNESIUM 2.2 mg/dL (1.6-2.3); PHOSPHOROUS 5.2 mg/dL (2.5-4.5); POTASSIUM 5.1 mmol/L (3.4-5.0)
[2020-10-06 05:59] LABS: BAND 5 % (0-10); EOSINOPHIL 2 % (0-4); LYMPHOCYTE 26 % (20.0-51.0); METAMYELOCYTE 2 % (0-0); NEUTROPHILS 58 % (42.0-75.2); PLATELET ESTIMATE NORMAL (NORMAL)
--- NOTE | 2020-10-06 07:30 | NUR ---
PT in room working with patient; assisted to repositioning at this time. Tolerating ventilator well. Responds to painful stimuli but not following commands. Will continue to monitor.
--- NOTE | 2020-10-06 07:46 | NUR ---
Bedside shift report given to DC Ferguson.
--- NOTE | 2020-10-06 14:09 | NUR ---
Sedation reduced and placed on CPAP trial. After approximately 10 min patient's heart rate increased to the 130's and was observed lifting up arms and reaching towards et tube. Stayed at bedside with patient and attempted to re-orient and calm down patient; This was not effective. RT notified and will place back on AC mode and increase sedation.
--- NOTE | 2020-10-06 16:00 | NUR ---
Patient sensitive to levophed titrations. Received verbal permission from hospitalist to titrate by 0.01 mcg/kg/min if necessary.
--- NOTE | 2020-10-06 17:26 | NUR ---
Axillary temp of 100.3. Hospitalist notified and will draw two sets of blood cultures.
--- NOTE | 2020-10-06 20:00 | NUR ---
Assessment complete. Pt is on the ventilator and is tolerating it well. Pt repositioned in bed. He is now resting quietly in the bed and appears comfortable. Call light within reach.
[2020-10-07] VITALS (939 sets, daily range): BP systolic 91–131; BP diastolic 60–86; PULSE 81–90; TEMP 98.9–99.7; O2SAT 72–100
--- NOTE | 2020-10-07 05:00 | NUR ---
No sedation vacataion performed as pt is alert and getting increasingly aggitated this morning. Sedation increased.
[2020-10-07 05:24] LABS: ARTERIAL BLD GAS O2 SATURATION 94.5 % (92-100); ARTERIAL BLD GAS TCO2 CT 29.6; ARTERIAL BLOOD GAS BASE EXCESS 2.6 (-2-2); ARTERIAL BLOOD GAS HCO3 28.2 meq/L (22-26); ARTERIAL BLOOD GAS PCO2 46.8 mmHg (35-45); ARTERIAL BLOOD GAS PO2 70.2 mmHg (80-100)
[2020-10-07 06:16] LABS: HEMATOCRIT 43.8 % (42.0-52.0); HEMOGLOBIN 14.8 g/dl (13.5-18.0); MEAN CELL VOLUME 104 fl (80.0-100.0); MEAN CORPUSCULAR HEMOGLOBIN 35 pg (27.0-31.0); MEAN CORPUSCULAR HGB CONC 34 g/dl (33.0-37.0); MEAN PLATELET VOLUME 10.1 fl (7.4-10.4); PLATELET COUNT 405 K/mm3 (130-400); RED BLOOD COUNT 4.23 M/mm3 (4.20-5.60); REDCELL DISTRIBUTION WIDTH-CV 11.5 % (11.5-14.5)
[2020-10-07 06:26] LABS: CALCIUM 9.5 mg/dL (8.4-10.2); CREATININE, serum 0.89 (0.66-1.25); POTASSIUM 5.3 mmol/L (3.4-5.0)
[2020-10-07 06:33] LABS: BAND 6 % (0-10); EOSINOPHIL 1 % (0-4); LYMPHOCYTE 21 % (20.0-51.0); METAMYELOCYTE 1 % (0-0); NEUTROPHILS 60 % (42.0-75.2); PLATELET ESTIMATE INCREASED (NORMAL)
--- NOTE | 2020-10-07 07:00 | NUR ---
RECEIVED REPORT FROM DC CHRISTENSEN. PT RESTING EASILY ON SAME VENT SETTINGS. FC PATENT AND DRAINING TO GRAVITY. OGT WITH TF INFUSING AT 45ML/HR. VSS. SEE GTT FLOWSHEET. REGISTERED PHLEBOTOMIST PART TIME IN PLACE.
--- NOTE | 2020-10-07 07:05 | NUR ---
Bedside shift report given to DC Rodriguez.
--- NOTE | 2020-10-07 15:25 | NUR ---
PER REPORT, DR CALL STATED YESTERDAY WE ARE ABLE TO TITRATE LEVOPHED GTT DOWN BY 0.01MCG/KG/MIN IF HELPS TO WEAN OFF OF MEDICATION. SEE GTT FLOWSHEET.
--- NOTE | 2020-10-07 17:30 | NUR ---
PT ATTEMPTING TO REACH FOR ETT AND GR 116 CURRENTLY.
--- NOTE | 2020-10-07 20:00 | NUR ---
Assessment complete. Pt is on the ventilator and is tolerating it well. Pt repositioned in bed. He is resting quietly in the bed at this time and he appears comfortable. Call light within reach.
[2020-10-08] VITALS (607 sets, daily range): BP systolic 101–155; BP diastolic 62–102; PULSE 85–133; TEMP 98.2–99.6; O2SAT 90–100
[2020-10-08 04:58] LABS: ARTERIAL BLD GAS O2 SATURATION 89.9 % (92-100); ARTERIAL BLOOD GAS BASE EXCESS 3.5 (-2-2); ARTERIAL BLOOD GAS HCO3 28.6 meq/L (22-26); ARTERIAL BLOOD GAS PCO2 44.9 mmHg (35-45); ARTERIAL BLOOD GAS PO2 54.9 mmHg (80-100); ARTERIAL BLOOD GAS pH 7.42 (7.35-7.45)
[2020-10-08 05:58] LABS: BASO # 0.1 (0.0-0.2); BASO % 0.4 % (0.0-2.0); EOS % 0.2 % (0-4.0); GRAN # 11.1 (1.4-6.5); GRAN % 86.8 % (42.2-75.2); HEMATOCRIT 41.6 % (42.0-52.0); HEMOGLOBIN 14.3 g/dl (13.5-18.0); LYMPH # 0.8 (1.2-3.4); LYMPH % 5.9 % (20.0-51.0); MEAN CELL VOLUME 104 fl (80.0-100.0); MEAN CORPUSCULAR HEMOGLOBIN 36 pg (27.0-31.0); MEAN CORPUSCULAR HGB CONC 34 g/dl (33.0-37.0); MEAN PLATELET VOLUME 10.2 fl (7.4-10.4); MONO # 0.7 (0.1-0.6); MONO % 5.6 % (1.7-9.3); PLATELET COUNT 366 K/mm3 (130-400); RED BLOOD COUNT 4.02 M/mm3 (4.20-5.60); REDCELL DISTRIBUTION WIDTH-CV 11.4 % (11.5-14.5)
[2020-10-08 06:19] LABS: CALCIUM 9.4 mg/dL (8.4-10.2); CREATININE, serum 0.84 (0.66-1.25)
--- NOTE | 2020-10-08 07:13 | NUR ---
Bedside shift report given to DC Lockhart.
--- NOTE | 2020-10-08 09:33 | NUR ---
Sedation on hold at this time per Dr. Loo's request; wants to attempt weaning trial.
--- NOTE | 2020-10-08 13:20 | NUR ---
Versed started at 5mg/hr per Dr. Loo's orders at this time. Will monitor for any needs for increased medication dosing.
--- NOTE | 2020-10-08 15:19 | NUR ---
Versed increased per family's request. Patient tearful, attempts to talk to family, HR increased. Versed increased at this time with x1 bolus per order.
--- NOTE | 2020-10-08 19:05 | NUR ---
Received report from DC Lockhart.
--- NOTE | 2020-10-08 19:45 | NUR ---
Patient resting in bed. Opening eyes spontaneously and following verbal commands. Patient is tachycardic, ranging 100-116. BPs within normal limits. Patient appears restless and increased coughing is noted. Sedation titrated according to orders. Will conintue to monitor.
[2020-10-09] VITALS (725 sets, daily range): BP systolic 97–146; BP diastolic 67–92; PULSE 94–138; TEMP 98.8–103.4; O2SAT 83–100
--- NOTE | 2020-10-09 04:00 | NUR ---
Patient tachycardic ranging 110-120s throughout all of NOC. Progressively more so after about 0300, reaching 140s at times. At assessment, patient is hot to touch and diaphoretic. Axillary temperature obtained of 103.4. Temperature at 0030 had previously been 98.8. Hospitalist, Chantelle notified, who consulted with [facility] physicians. Received orders to obtain a lactic acid, as well as sputum, blood, and urine cultures. To obtain a respiratory virus panel. Fluids and antibiotics ordered. Patient's axillary and groin areas intermittently iced, and PRN ibuprofen is administered. Heavy blankets removed and fan on at this time.
[2020-10-09 04:20] LABS: COLLECTION METHOD CLEAN CATCH
[2020-10-09 04:23] LABS: BASO # 0.1 (0.0-0.2); BASO % 0.6 % (0.0-2.0); EOS # 0.2 (0.0-0.7); EOS % 1.2 % (0-4.0); GRAN % 79.5 % (42.2-75.2); HEMATOCRIT 41.3 % (42.0-52.0); HEMOGLOBIN 13.9 g/dl (13.5-18.0); LYMPH # 1.4 (1.2-3.4); LYMPH % 10.1 % (20.0-51.0); MEAN CELL VOLUME 104 fl (80.0-100.0); MEAN CORPUSCULAR HEMOGLOBIN 35 pg (27.0-31.0); MEAN CORPUSCULAR HGB CONC 34 g/dl (33.0-37.0); MEAN PLATELET VOLUME 9.8 fl (7.4-10.4); MONO # 1.1 (0.1-0.6); MONO % 7.6 % (1.7-9.3); PLATELET COUNT 377 K/mm3 (130-400); RED BLOOD COUNT 3.96 M/mm3 (4.20-5.60); REDCELL DISTRIBUTION WIDTH-CV 11.6 % (11.5-14.5)
[2020-10-09 04:27] LABS: MUCOUS Present /lpf; PH 5 (5-8); SQUAMOUS EPITHELIAL None Seen /hpf; URINE APPEARANCE Hazy; URINE BACTERIA None Seen /hpf; URINE BILIRUBIN Negative (NEGATIVE); URINE BLOOD 2+ (NEGATIVE); URINE COLOR Yellow; URINE GLUCOSE Negative (NEGATIVE); URINE KETONE Negative (NEGATIVE); URINE LEUKOCYTE ESTERASE Negative (NEGATIVE); URINE NITRATE Negative (NEGATIVE); URINE PROTEIN(semi-quant) Negative (NEGATIVE); URINE RBC >50 /hpf
[2020-10-09 04:30] LABS: ARTERIAL BLD GAS O2 SATURATION 89.6 % (92-100); ARTERIAL BLD GAS TCO2 CT 30.1; ARTERIAL BLOOD GAS BASE EXCESS 4.7 (-2-2); ARTERIAL BLOOD GAS HCO3 28.8 meq/L (22-26); ARTERIAL BLOOD GAS PCO2 41.1 mmHg (35-45); ARTERIAL BLOOD GAS PO2 55.2 mmHg (80-100); ARTERIAL BLOOD GAS pH 7.46 (7.35-7.45)
[2020-10-09 04:33] LABS: ALBUMIN 3.7 gm/dL (3.5-5.0); BILIRUBIN,TOTAL 1.1 mg/dL (0.0-1.0); CALCIUM 9.3 mg/dL (8.4-10.2); CREATININE, serum 0.76 (0.66-1.25); MAGNESIUM 2.2 mg/dL (1.6-2.3); POTASSIUM 4.2 mmol/L (3.4-5.0); TOTAL PROTEIN 7.4 gm/dL (6.4-8.2)
--- NOTE | 2020-10-09 05:00 | NUR ---
Patient tachycardic to the 140s with a temperature of 103.4 F. No sedation vacation performed.
--- NOTE | 2020-10-09 05:22 | NUR ---
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 Loading dose: 2 grams Maintenance dose: 1.5 grams every 12 hours Trough goal: 15-20 ug/mL
--- NOTE | 2020-10-09 08:00 | NUR ---
Opens eyes and squeezed this nurses hands on command. Became restless in bed; pulling at restraints. Attempted to re-orient patient as this time. Temp 99.2 axillary. VS stable; will continue to monitor.
--- NOTE | 2020-10-09 15:00 | NUR ---
Assisted with a full bed bath and linen change. Patient became slightly agitated. HR up to 130's and 02 desaturated to low 90's. Suction attempted and received only a small amout of yellow sputum. RT notified and Fi02 increased back up to 50%. Will continue to monitor.
--- NOTE | 2020-10-09 17:32 | NUR ---
Updated Dr. Sears of patient status; no new orders at this time.
--- NOTE | 2020-10-09 19:00 | NUR ---
Axillary temp 102.7. Ibuprofen administered and cloth cloths placed on patient. Awaiting blood and sputum cultures from overnight. Will continue to monitor.
--- NOTE | 2020-10-09 19:05 | NUR ---
Sedation vacation not performed; patient arouses easily and becomes agitated and pulls at restraints when sedation is lowered or with stimulation.
--- NOTE | 2020-10-09 19:30 | NUR ---
Received report from DC Ferguson.
--- NOTE | 2020-10-09 20:00 | NUR ---
Patient resting quietly in bed. Patient withdraws and only open eyes to painful stimuli. Sedation titrated down according to orders. He is warm to touch, with axillary temperature of 102 F. All other vitals within normal limits. Patient is repositioned, fan speed increased, and ice packs are applied to the axillary areas. Bed in lowest position, all alarms on. No further needs noted.
[2020-10-10] VITALS (800 sets, daily range): BP systolic 107–155; BP diastolic 62–103; PULSE 92–126; TEMP 98.8–100.5; O2SAT 90–100
[2020-10-10 04:56] LABS: ARTERIAL BLD GAS O2 SATURATION 91.5 % (92-100); ARTERIAL BLD GAS TCO2 CT 30.4; ARTERIAL BLOOD GAS BASE EXCESS 3.4 (-2-2); ARTERIAL BLOOD GAS HCO3 28.9 meq/L (22-26); ARTERIAL BLOOD GAS PCO2 47.4 mmHg (35-45); ARTERIAL BLOOD GAS PO2 60.8 mmHg (80-100)
[2020-10-10 04:57] LABS: ALBUMIN 3.3 gm/dL (3.5-5.0); BILIRUBIN,TOTAL 1.1 mg/dL (0.0-1.0); CALCIUM 8.9 mg/dL (8.4-10.2); CREATININE, serum 0.62 (0.66-1.25); PHOSPHOROUS 3.9 mg/dL (2.5-4.5); TOTAL PROTEIN 6.8 gm/dL (6.4-8.2)
[2020-10-10 05:03] LABS: PRE ALBUMIN 12.4 mg/dL (17.6-36.0)
--- NOTE | 2020-10-10 09:32 | NUR ---
VS stable; follows simple commands and tolerting ventilator well. Will continue to monitor.
--- NOTE | 2020-10-10 10:00 | NUR ---
Pt had a approximately 6 second run of A-fib RVR. Thiago SR with BP WNL. RUBEN Hyman notified; will update cardiology team. No furter orders received at this time.
--- NOTE | 2020-10-10 10:52 | NUR ---
Extubated at 1052. 02 93% on 4L. Coughing up a moderate amound to yellow sputum. Assisting with suctioning as needed.
--- NOTE | 2020-10-10 14:21 | NUR ---
Discussed plan of care with Dr. Sears. No new orders at this time. Awaiting results of cultures. Can DC vanco if all cultures negative.
[2020-10-10 14:52] LABS: ARTERIAL BLD GAS O2 SATURATION 89.7 % (92-100); ARTERIAL BLD GAS TCO2 CT 30.5; ARTERIAL BLOOD GAS BASE EXCESS 3.8 (-2-2); ARTERIAL BLOOD GAS HCO3 29.1 meq/L (22-26); ARTERIAL BLOOD GAS PCO2 46.2 mmHg (35-45); ARTERIAL BLOOD GAS PO2 55.3 mmHg (80-100); ARTERIAL BLOOD GAS pH 7.42 (7.35-7.45)
--- NOTE | 2020-10-10 18:15 | NUR ---
Patient drowsy but awakens easily and follows simple commands. Occasionally restless and attempts to remove oxygen and throw legs over the bed rails. Dr. Loo requested to initiate precedex at this time.
--- NOTE | 2020-10-10 18:19 | NUR ---
Arrived to the unit from the PACU. Attached to trach to ventilator. Tolerating well. VS stable; will continue to monitor.
--- NOTE | 2020-10-10 19:20 | NUR ---
Received report from DC Ferguson. Patient restless in bed. Receiving 6L oxygen via oxymask; patient repeatedly attempts to remove mask. Oxygen saturation 95% or better. Oxygen titrated to 3L. Continues to receive precedex drip, which is titrated up according to orders due to restlessness. Patient tachycardic, ranging 110-120s; BPs elevated with SBP in 150s. Patient repositioned. Bed in lowest position, all alarms are on. Call light within reach.
[2020-10-11] VITALS (549 sets, daily range): BP systolic 104–198; BP diastolic 54–129; PULSE 82–117; TEMP 98.7–101.8; O2SAT 76–100
[2020-10-11 04:48] LABS: HEMATOCRIT 40.3 % (42.0-52.0); HEMOGLOBIN 13.6 g/dl (13.5-18.0); MEAN CELL VOLUME 103 fl (80.0-100.0); MEAN CORPUSCULAR HEMOGLOBIN 35 pg (27.0-31.0); MEAN CORPUSCULAR HGB CONC 34 g/dl (33.0-37.0); MEAN PLATELET VOLUME 9.9 fl (7.4-10.4); PLATELET COUNT 319 K/mm3 (130-400); RED BLOOD COUNT 3.93 M/mm3 (4.20-5.60); REDCELL DISTRIBUTION WIDTH-CV 11.4 % (11.5-14.5)
[2020-10-11 04:59] LABS: CALCIUM 9.6 mg/dL (8.4-10.2); CREATININE, serum 0.51 (0.66-1.25); MAGNESIUM 1.7 mg/dL (1.6-2.3)
[2020-10-11 05:15] LABS: BAND 2 % (0-10); BASOPHIL 3 % (0-2); EOSINOPHIL 3 % (0-4); LYMPHOCYTE 9 % (20.0-51.0); NEUTROPHILS 78 % (42.0-75.2)
[2020-10-11 05:16] LABS: PLATELET ESTIMATE NORMAL (NORMAL)
--- NOTE | 2020-10-11 05:48 | NUR ---
Patient became increasingly restless beginning around 0200. Patient exhibited increases in HR and BP. Precedex titrated accordingly, with little effect on HR or pressures. PRN Hydralazine administered at 0227. Hypertension persisted, with BP of 161/107 at 0400. Hospitalist, Chantelle, notified. Received order to administer a second dose of 10mg Hydralazine. Pressures continued to remain elevated despite patient resting quietly in bed with Precedex at 0.4 mcg/kg/hr; BP at 0520 182/103. Chantelle notified. Received orders to administer 0900 dose of metoprolol now.
--- NOTE | 2020-10-11 07:10 | NUR ---
RECEIVED REPORT FROM DC RUDOLPH. PT RESTING EASILY ON RA. VSS. SEE GTT FLOWSHEET. CALL LIGHT WITHIN REACH. FC PATENT AND DRAINING TO GRAVITY.
--- NOTE | 2020-10-11 08:35 | NUR ---
POX 88-89%. PLACED ON 2L VIA NC.
--- NOTE | 2020-10-11 08:55 | NUR ---
DR LEAHY TO BEDSIDE FOR ASSESSMENT. INFORMED PROVIDER OF PT'S TEMP THIS AM OF 101.8, ON PRECEDEX GTT, UNABLE TO SWALLOW AND SPEECH THERAPY AT BEDSIDE NOW FOR EVALUATION, CURRENT VS, ABX WITH SPUTUM AND NARES SWAB POSITIVE FOR MRSA. PROVIDER STATES OK TO GIVE RECTAL TYLENOL, OBTAIN ABG NOW AND RT NOTIFIED, AND SPEAK TO DR AN FOR RECOMMENDATIONS R/T WBC TRENDS AND TEMPS.
--- NOTE | 2020-10-11 09:15 | NUR ---
DR DAMON AT BEDSIDE FOR ASSESSMENT. DISCUSSED WITH HIM WHAT WAS DISCUSSED WITH DR LEAHY THIS AM. ALSO INFORMED PROVIDER ABOUT FSBS 79 BUT PT IS NPO. NEW ORDERS RECEIVED.
[2020-10-11 09:34] LABS: ARTERIAL BLD GAS O2 SATURATION 90.3 % (92-100); ARTERIAL BLD GAS TCO2 CT 23.4; ARTERIAL BLOOD GAS BASE EXCESS 0.4 (-2-2); ARTERIAL BLOOD GAS HCO3 22.5 meq/L (22-26); ARTERIAL BLOOD GAS PCO2 29.6 mmHg (35-45); ARTERIAL BLOOD GAS PO2 55.6 mmHg (80-100)
[2020-10-11 09:39] LABS: COLLECTION METHOD CATHETER
[2020-10-11 10:05] LABS: MUCOUS Present /lpf; PH 8 (5-8); SQUAMOUS EPITHELIAL None Seen /hpf; URINE APPEARANCE Hazy; URINE BILIRUBIN Negative (NEGATIVE); URINE BLOOD 2+ (NEGATIVE); URINE COLOR Yellow; URINE GLUCOSE Negative (NEGATIVE); URINE KETONE Trace (NEGATIVE); URINE LEUKOCYTE ESTERASE Negative (NEGATIVE); URINE NITRATE Negative (NEGATIVE); URINE PROTEIN(semi-quant) 1+ (NEGATIVE); URINE RBC >50 /hpf; URINE UROBILINOGEN >=4.0 mg/dL (NEGATIVE)
[2020-10-11 10:07] LABS: URINE BACTERIA Rare /hpf
--- NOTE | 2020-10-11 10:15 | NUR ---
POX 89%. PLACED ON 6L VIA OM.
--- NOTE | 2020-10-11 13:06 | NUR ---
SHADIA assisted patient's son Dio with a letter stating patient is currently a patient at [facility] for clinical care.
--- NOTE | 2020-10-11 17:59 | NUR ---
Vancomycin Follow-up Pharmacy Note Current regimen: Vancomycin 1.5 gm IV q12h Vancomycin trough: 8.17 Adjustments: Increase Vancomycin to 1.5 gm IV q8h. Pharmacy will continue to monitor and check a Vancomycin trough on 10/13/20.
--- NOTE | 2020-10-11 19:30 | NUR ---
Received report from DC Rodriguez. Patient resting quietly in bed at this time. All vitals within normal limits. Patient's son and daughter in law at bedside.
[2020-10-12] VITALS (671 sets, daily range): BP systolic 96–199; BP diastolic 50–117; PULSE 65–117; TEMP 97.1–100.8; O2SAT 89–100
[2020-10-12 05:16] LABS: HEMATOCRIT 38.7 % (42.0-52.0); HEMOGLOBIN 13.2 g/dl (13.5-18.0); MEAN CELL VOLUME 102 fl (80.0-100.0); MEAN CORPUSCULAR HEMOGLOBIN 35 pg (27.0-31.0); MEAN CORPUSCULAR HGB CONC 34 g/dl (33.0-37.0); MEAN PLATELET VOLUME 9.9 fl (7.4-10.4); PLATELET COUNT 310 K/mm3 (130-400); RED BLOOD COUNT 3.81 M/mm3 (4.20-5.60); REDCELL DISTRIBUTION WIDTH-CV 11.7 % (11.5-14.5)
[2020-10-12 05:29] LABS: ALBUMIN 3.5 gm/dL (3.5-5.0); BILIRUBIN,TOTAL 1.3 mg/dL (0.0-1.0); CALCIUM 9.3 mg/dL (8.4-10.2); CREATININE, serum 0.57 (0.66-1.25); MAGNESIUM 1.7 mg/dL (1.6-2.3); POTASSIUM 3.5 mmol/L (3.4-5.0); TOTAL PROTEIN 7.2 gm/dL (6.4-8.2)
[2020-10-12 05:56] LABS: BAND 3 % (0-10); EOSINOPHIL 2 % (0-4); LYMPHOCYTE 18 % (20.0-51.0); NEUTROPHILS 67 % (42.0-75.2); NUCLEATED RED BLOOD CELL 1 (0-6); PLATELET ESTIMATE NORMAL (NORMAL)
--- NOTE | 2020-10-12 06:00 | NUR ---
Patient began experiencing SBPs ranging 170-190s at approximately 2140. PRN Hydralazine administered. Pressures improved for a couple hours, however, began increasing again at 2330. Chantelle, hospitalist, notified. Received orders to administer a dose of 5mg Metoprolol, and to follow up with [facility] if hypertension persists. [facility] physician, Dr. Monte, contacted at 0130, who instructed this RN to titrate precedex to 0.5 mcg/kg/hr, as she believes pressures are due to withdrawal. This RN expressed that at 0.3 mcg/kg/hr, patient was resting quietly in bed more often than not; he was alert, following verbal commands, and easily redirected when somewhat restless. Precedex titrated per Dr. Monte's direction. Pressures still did not improve, and Dr. Monte was notified of such at 0330. Received orders to administer additional dose of PRN hydralazine, and to reassess in 45 minutes. Pressures continued to increase, reaching SBPs in 200s with DBPs 110s. At this time, patient was asleep and snoring in bed. Attempted to update Dr. Romano at 0415; message left with nurse. Chantelle, hospitalist, notified at 0445, who ordered the initiation of a cardene drip. Cardene drip started and titrated according to orders. At this time, patient's pressures have significantly improved, the latest being 149/85. Will continue to monitor closely.
--- NOTE | 2020-10-12 07:00 | NUR ---
Patient placed in mitts after repeatedly being found tugging on IV lines and pulling out saavedra catheter. Some bleeding noted from urethral opening that has since clotted and stopped. Bed in lowest position, call light within reach. All alarms on.
--- NOTE | 2020-10-12 07:30 | NUR ---
RECEIVED REPORT FROM DC RUDOLPH. IS RESTLESS BUT EASILY DIRECTABLE. WILL MONITOR CLOSELY. SEE DC RUDOLPH NOTE FROM THIS AM. PT ON 4L VIA NC. BEDALARM IN PLACE. MITTS IN PLACE. SEE GTT FLOWSHEET. CALL LIGHT WITHIN REACH. VSS.
--- NOTE | 2020-10-12 08:50 | NUR ---
RUBEN PACKER WITH CARDIOLOGY AT BEDSIDE FOR ASSESSMENT. NOTIFIED OF CARDENE GTT INITIATION LAST NIGHT. STATES WILL RESTART IV METOPROLOL AND WEAN OFF CARDENE GTT IF POSSIBLE. SEE GTT FLOWSHEET.
--- NOTE | 2020-10-12 09:05 | NUR ---
DR LEAHY AT BEDSIDE FOR ASSESSMENT. PROVIDER STATES TO CONTACT UROLOGY BECAUSE PT PULLED OUT HIS FC THIS AM AND IS STILL BLEEDING. PROVIDER ALSO STATES DO NOT SEND PT UPSTAIRS TODAY AND INCREASE PRECEDEX IF NEED BE AND ATTEMPT ST CONSULT AGAIN TODAY.
--- NOTE | 2020-10-12 09:20 | NUR ---
NOTIFIED DR WITT OF FC INCIDENT/BLEEDING/CONSULT. PROVIDER STATES REPLACE FC AND THAT BLEEDING IN UO IS TO BE EXPECTED. PROVIDER STATES WILL BE BY SHORTLY TO ASSESS.
[2020-10-12 09:55] LABS: PHOSPHOROUS 6.2 mg/dL (2.5-4.5)
[2020-10-12 10:01] LABS: PRE ALBUMIN 9.6 mg/dL (17.6-36.0)
--- NOTE | 2020-10-12 11:40 | NUR ---
DR WITT AT BEDSIDE FOR ASSESSMENT. STATES BLEEDING IN UROMETER IS TO BE EXPECTED AND THAT HE THINKS IT WILL BE OK. PROVIDER STATES TO LEAVE FC IN FOR A WEEK.
--- NOTE | 2020-10-12 11:46 | NUR ---
SW attended rounds with physician and logistics assistant. Patient will be here through week due to clinical needs. [facility] and [facility] was previous plan. [facility] unable to meet patient needs. SW will continue to follow.
[2020-10-13] VITALS (895 sets, daily range): BP systolic 111–168; BP diastolic 66–106; PULSE 58–96; TEMP 97.2–101.2; O2SAT 68–100
[2020-10-13 04:30] LABS: HEMATOCRIT 38.2 % (42.0-52.0); HEMOGLOBIN 12.8 g/dl (13.5-18.0); MEAN CELL VOLUME 103 fl (80.0-100.0); MEAN CORPUSCULAR HEMOGLOBIN 35 pg (27.0-31.0); MEAN CORPUSCULAR HGB CONC 34 g/dl (33.0-37.0); MEAN PLATELET VOLUME 10.1 fl (7.4-10.4); PLATELET COUNT 254 K/mm3 (130-400); RED BLOOD COUNT 3.71 M/mm3 (4.20-5.60); REDCELL DISTRIBUTION WIDTH-CV 11.6 % (11.5-14.5)
[2020-10-13 04:42] LABS: CALCIUM 9.3 mg/dL (8.4-10.2); CREATININE, serum 0.43 (0.66-1.25); MAGNESIUM 1.8 mg/dL (1.6-2.3); PHOSPHOROUS 4.9 mg/dL (2.5-4.5); POTASSIUM 3.7 mmol/L (3.4-5.0)
[2020-10-13 05:12] LABS: BAND 1 % (0-10); EOSINOPHIL 4 % (0-4); LYMPHOCYTE 17 % (20.0-51.0); NEUTROPHILS 69 % (42.0-75.2); PLATELET ESTIMATE NORMAL (NORMAL)
--- NOTE | 2020-10-13 07:10 | NUR ---
RECEIVED REPORT FROM DC STAPLES. PT SLEEPING ON 2L NC. FC PATENT AND DRAINING TO GRAVITY. CALL LIGHT WITHIN REACH. VSS. SEE GTT FLOWSHEET.
--- NOTE | 2020-10-13 09:42 | NUR ---
[facility] Referral Sent on today.
--- NOTE | 2020-10-13 16:00 | NUR ---
PT MORE ALERT AND ABLE TO FOLLOW COMMANDS WITH ACTIVE ROM. EDUCATED PT ON NOT PULLING AT IV LINES AND FC. VERBALIZED UNDERSTANDING BUT IS SOME CONFUSED. WILL MONITOR CLOSELY.
[2020-10-14] VITALS (569 sets, daily range): BP systolic 120–187; BP diastolic 74–122; PULSE 66–124; TEMP 98.2–100; O2SAT 68–100
[2020-10-14 04:58] LABS: HEMOGLOBIN 11.8 g/dl (13.5-18.0); MEAN CELL VOLUME 102 fl (80.0-100.0); MEAN CORPUSCULAR HEMOGLOBIN 35 pg (27.0-31.0); MEAN CORPUSCULAR HGB CONC 34 g/dl (33.0-37.0); MEAN PLATELET VOLUME 9.7 fl (7.4-10.4); PLATELET COUNT 233 K/mm3 (130-400); REDCELL DISTRIBUTION WIDTH-CV 11.7 % (11.5-14.5)
[2020-10-14 05:26] LABS: HEMATOCRIT 34.7 % (42.0-52.0)
[2020-10-14 05:27] LABS: CREATININE, serum 0.48 (0.66-1.25); MAGNESIUM 1.9 mg/dL (1.6-2.3); PHOSPHOROUS 3.9 mg/dL (2.5-4.5); POTASSIUM 3.1 mmol/L (3.4-5.0)
[2020-10-14 05:44] LABS: BAND 1 % (0-10); EOSINOPHIL 7 % (0-4); LYMPHOCYTE 17 % (20.0-51.0); NEUTROPHILS 66 % (42.0-75.2); PLATELET ESTIMATE NORMAL (NORMAL)
--- NOTE | 2020-10-14 07:00 | NUR ---
PT RESTING IN BED. PT ON TPN AND PRECEDEX DRIP. PT HYPERTENSIVE. WILL GIVE AM MEDS DELBERT. WILL CONTINUE TO MONTIOR.
--- NOTE | 2020-10-14 13:40 | NUR ---
target worker spoke with patient's son, Redd and advised that we are working towards transferring to [facility] once insurance has approved. Redd verbalizes understanding and agrees to have Tung with [facility] call him this afternoon to answer any questions. At this time, [facility], has denied [facility] and Dr Haro will be performing a Peer to Peer.
--- NOTE | 2020-10-14 14:50 | NUR ---
VIDEO SWALLOW DONE BY SPEECH. STATE PT OK FOR REGULAR DIET AND LIQUIDS. CALLED AND NOTIFIED. ORDER RECEIVED TO START DIET. WATER AND SNACK GIVEN.
[2020-10-15] VITALS (315 sets, daily range): BP systolic 74–148; BP diastolic 61–103; PULSE 81–119; TEMP 97.8–99.3; O2SAT 63–99
[2020-10-15 05:05] LABS: HEMOGLOBIN 12.5 g/dl (13.5-18.0); MEAN CELL VOLUME 100 fl (80.0-100.0); MEAN CORPUSCULAR HEMOGLOBIN 35 pg (27.0-31.0); MEAN CORPUSCULAR HGB CONC 35 g/dl (33.0-37.0); MEAN PLATELET VOLUME 9.8 fl (7.4-10.4); PLATELET COUNT 263 K/mm3 (130-400); RED BLOOD COUNT 3.57 M/mm3 (4.20-5.60); REDCELL DISTRIBUTION WIDTH-CV 11.6 % (11.5-14.5)
[2020-10-15 05:06] LABS: HEMATOCRIT 35.7 % (42.0-52.0)
[2020-10-15 05:12] LABS: CALCIUM 9.4 mg/dL (8.4-10.2); CREATININE, serum 0.52 (0.66-1.25); MAGNESIUM 1.6 mg/dL (1.6-2.3); PHOSPHOROUS 3.4 mg/dL (2.5-4.5); POTASSIUM 3.3 mmol/L (3.4-5.0)
[2020-10-15 05:19] LABS: BAND 1 % (0-10); EOSINOPHIL 3 % (0-4); LYMPHOCYTE 19 % (20.0-51.0); METAMYELOCYTE 3 % (0-0); NEUTROPHILS 70 % (42.0-75.2); PLATELET ESTIMATE NORMAL (NORMAL)
--- NOTE | 2020-10-15 07:00 | NUR ---
PT VERY RESTLESS AND AGITATED. [facility] NOTIFIED AND ORDERED HALDOL. PT STARTED BACK ON PRECEDEX. PT REORIENTED AND POSITIONED IN BED. BED ALARM ACTIVE. WILL CONTINUE TO MONITOR CLOSELY.
--- NOTE | 2020-10-15 07:33 | NUR ---
0630 ALERTED BY [employer] THAT PATIENT HR HAD INCREASED (THIS NURSE WAS ASSISTING IN ANOTHER ROOM) ENETERED ROOM AND PATIENT NOTED TO BE ATTEMPTING TO GET OUT OF BED HAVING FEET OUT OF BED AND ATTEMPTING TO PULL HIMSELF UP AND OUT OF THE BED, ATTEMPTED TO REORIENT PATIENT WITHOUT SUCCESS PATIENT INSISTING THAT HE NEEDED TO BET OOB TO "GO TO THE COURT HOUSE" TODAY [facility] PROVIDER CHIMED INTO THE ROOM FOR DAILY ASSESSMENT AND THIS NURSE INFORMED OF CURRENT ISSUES AND INTERVENTIONS THAT HAVE BEEN TAKEN, STATED THAT SHE WILL REPORT THEM TO AND GET BACK TO US. DAY SHIFT NURSE THEN ENTERED ROOM PATIENT REPOSITIONED HIMSELF WITH ENCOURAGEMENT ALTHOUGH CONTINUING TO INSIST HE NEEDED TO GO TO THE COURTHOUSE TODAY, MEDICATED ORDERED AND REPOSITIONED PATIENT BECOMING CALMER AND NOT BELLIGERENT AT THIS TIME.
--- NOTE | 2020-10-15 10:44 | NUR ---
CLARIFIED LIBRIUM DOSE, AND ORDER FOR GABAPENTIN WITH . WILL CONTINUE WITH HIGHER DOSE OF LIBRIUM AND STOP GABAPENTIN.
[2020-10-16] VITALS (595 sets, daily range): BP systolic 93–147; BP diastolic 57–103; PULSE 65–91; TEMP 97.9–99; O2SAT 61–98
[2020-10-16 05:35] LABS: CALCIUM 8.9 mg/dL (8.4-10.2); CREATININE, serum 0.61 (0.66-1.25); PHOSPHOROUS 5.8 mg/dL (2.5-4.5); POTASSIUM 3.7 mmol/L (3.4-5.0)
--- NOTE | 2020-10-16 07:00 | NUR ---
PRECEDEX RUNNING AT 0.7MCG/KG/HR UPON ARRIVAL OF SHIFT.
--- NOTE | 2020-10-16 07:00 | NUR ---
PT MOVING AROUND IN BED. PT ON PRECEDEX DRIP. PT SLIGHTLY HYPERTENSIVE. BED ALARM ACTIVE. WILL CONTINUE TO MONITOR.
[2020-10-17] VITALS (599 sets, daily range): BP systolic 103–162; BP diastolic 67–100; PULSE 66–98; TEMP 97.8–100.3; O2SAT 58–100
[2020-10-17 04:46] LABS: BILIRUBIN,TOTAL 0.8 mg/dL (0.0-1.0); CALCIUM 8.8 mg/dL (8.4-10.2); CREATININE, serum 0.64 (0.66-1.25); MAGNESIUM 1.6 mg/dL (1.6-2.3); PHOSPHOROUS 5.1 mg/dL (2.5-4.5); TOTAL PROTEIN 6.3 gm/dL (6.4-8.2)
[2020-10-17 04:53] LABS: PRE ALBUMIN 12.6 mg/dL (17.6-36.0)
--- NOTE | 2020-10-17 07:00 | NUR ---
RECEIVED REPORT FROM DC STAPLES. PT IS RESTLESS IN BED, BEDALARM IN PLACE. VSS. FC PATENT AND DRAINING TO GRAVITY. CALL LIGHT WITHIN REACH. SEE GTT FLOWSHEET. PT ON 2L VIA NC.
--- NOTE | 2020-10-17 08:20 | NUR ---
PT PLACED ON RA. POX 95%.
--- NOTE | 2020-10-17 14:50 | NUR ---
PT STATES THAT HIS FEET/ANKLES HURT AND ACHE. SEE MAR.
--- NOTE | 2020-10-17 16:09 | NUR ---
Peer to peer completed this date. [employer] is denying patient's transfer to [facility] at this time.
--- NOTE | 2020-10-17 17:35 | NUR ---
PT WAS SITTING UP IN BED EATING DINNER WITH TRAY OVER LAP, X3 RAILS UP, CALL LIGHT WITHIN REACH, AND PRECEDEX GTT ON. BEDALARM WENT OFF, RN RAN INTO ROOM PT FELL OUT OF BED AND HIT LEFT SIDE OF HIS HEAD AND LEFT KNEE ON THE FLOOR AFTER BEING LEANED OVER AND BEING ALMOST ON THE FLOOR ALREADY. PT ASSESSED. NO CHANGE IN NEURO STATUS AT THIS TIME. NO BUMP TO LEFT SIDE OF HEAD OR BLEEDING NOTED. SMALL SKIN TEAR TO LEFT KNEE NOTED. PT ASSISTED BACK TO BED BY THIS RN, DC DICKENS, BENDER MACHINE DC SKELTON AND ESTEE RN. DR MONTGOMERY AT BEDSIDE FOR ASSESSMENT AT 175 AND NOTIFIED OF INCIDENT. RUBEN BOLANOS NOTIFIED OF INCIDENT AT 175. NEW ORDERS RECIEVED. NO CHANGES IN NEURO STATUS STILL, VSS.
--- NOTE | 2020-10-17 19:45 | NUR ---
PT AROUSES EASILY. NO NEURO CHANGES NOTED COMPARED TO BEFORE THE FALL INCIDENT.
--- NOTE | 2020-10-17 22:40 | NUR ---
Patient very agitated and banging clipboard against bed, attempting to get out of bed multiple times, unable to be redirected despite multiple interventions, patient receiving max dose of precedex and medicated with ciwa protocol and haldol however multiple orders present on patient orders and given 5mg dose inadvertently, spoke with ALEXANDRA Lockhart and informed of above
[2020-10-18] VITALS (458 sets, daily range): BP systolic 107–157; BP diastolic 67–100; PULSE 53–87; TEMP 97.7–99.2; O2SAT 41–99
--- NOTE | 2020-10-18 07:15 | NUR ---
RECEIVED REPORT FROM DC STAPLES. PT SITTING UP IN BED ON RA PULLING AT HIS BLANKETS AND GOWN. VSS. CALL LIGHT WITHIN REACH. SEE GTT FLOWSHEET. FC PATENT AND DRAINING TO GRAVITY.
--- NOTE | 2020-10-18 11:00 | NUR ---
SW attended rounds with physician and team. Further testings completed this week to further assess clinical care. Wilian Wharton called to update. SHADIA will continue to follow.
--- NOTE | 2020-10-18 11:31 | NUR ---
SW informed patient approx. 11:25am. Patient's spouse and daughter at bedside. Nurse provided she will call house and assist with calling the preferred home to assist with transfer. Nothing further.
--- NOTE | 2020-10-18 11:36 | NUR ---
PT TO LOP WITH RADIOLOGY STAFF AT 1112 VIA STRETCHER ON RA. PT RETURNS BACK TO ICU BED AT 1136. PLACED BACK ON BEDSIDE CONTINUOUS MONITOR. NO NEURO CHANGES NOTED AT THIS TIME. VSS. CALL LIGHT WITHIN REACH. BEDALARM SET.
[2020-10-18 12:27] LABS: GLUCOSE,CSF 56 mg/dL (40-70); TOTAL PROTEIN,CSF 80 mg/dL (15-45)
[2020-10-18 12:36] LABS: CSF APPEARANCE CLEAR; CSF COLOR COLORLESS
[2020-10-18 12:38] LABS: CSF RBC 0 /mm3 (0-0)
--- NOTE | 2020-10-18 12:56 | NUR ---
PT C/O ZAPIEN. PT IS POST LP. DR VALDEZ RADIOLOGIST NOTIFIED. SEE MAR. PROVIDER STATES TO KEEP PT WELL HYDRATED, NO STRENUOUS ACTIVITY FOR THE NEXT 24 HOURS, CONSIDER CAFFIENE, AND GIVE TYLENOL PO NOW. PRVODIER STATES IT IS TO BE EXPECTED AND TO MONITOR CLOSELY.
[2020-10-18 12:59] LABS: CSF POLYMORPHONUCLEAR 50 % (0-6)
[2020-10-18 13:00] LABS: CSF MONONUCLEAR 50 % (70-100)
--- NOTE | 2020-10-18 19:30 | NUR ---
REPORT GIVEN TO DC PHILLIPS
[2020-10-19] VITALS (449 sets, daily range): BP systolic 140–167; BP diastolic 86–121; PULSE 84–112; TEMP 97.9–99.3; O2SAT 32–100
--- NOTE | 2020-10-19 05:00 | NUR ---
TITRATED DRIP OFF. PT TOLERATING WELL. DID ASK FOR AND RECIEVE A DANDY TENDER SINCE HE FREQUENTY PUTS LEGS OUTSIDE OF BED AND NEEDS REDIRECTING AND IS A HIGH FALL RISK.
[2020-10-19 06:03] LABS: BASO # 0.1 (0.0-0.2); BASO % 0.5 % (0.0-2.0); EOS # 0.2 (0.0-0.7); EOS % 2.2 % (0-4.0); GRAN # 8.4 (1.4-6.5); GRAN % 76.2 % (42.2-75.2); HEMOGLOBIN 12.7 g/dl (13.5-18.0); LYMPH # 1.7 (1.2-3.4); LYMPH % 15.5 % (20.0-51.0); MEAN CELL VOLUME 102 fl (80.0-100.0); MEAN CORPUSCULAR HEMOGLOBIN 35 pg (27.0-31.0); MEAN CORPUSCULAR HGB CONC 34 g/dl (33.0-37.0); MONO # 0.5 (0.1-0.6); MONO % 4.8 % (1.7-9.3); PLATELET COUNT 282 K/mm3 (130-400); RED BLOOD COUNT 3.62 M/mm3 (4.20-5.60); REDCELL DISTRIBUTION WIDTH-CV 11.8 % (11.5-14.5)
[2020-10-19 06:15] LABS: ALBUMIN 3.4 gm/dL (3.5-5.0); CALCIUM 9.5 mg/dL (8.4-10.2); CREATININE, serum 0.59 (0.66-1.25); MAGNESIUM 1.5 mg/dL (1.6-2.3); POTASSIUM 3.5 mmol/L (3.4-5.0); TOTAL PROTEIN 7.1 gm/dL (6.4-8.2)
[2020-10-19 06:22] LABS: PRE ALBUMIN 14.9 mg/dL (17.6-36.0)
--- NOTE | 2020-10-19 12:48 | NUR ---
conditioning room worker gave [facility] a referral. [facility] will kylah for authorization on 10/20/2020. Worker faxed clinical information to [facility]. Patient remains at too high of level of care for a [facility] facility.
--- NOTE | 2020-10-19 13:42 | NUR ---
Report phoned to DC Yeager
--- NOTE | 2020-10-19 13:51 | NUR ---
[facility] reports patient no longer meets criteria. Will work with patient for possible fci/acute rehab if needed.
[2020-10-19 14:30] LABS: HSV 2 DNA PCR QUAL Not Detected (())
--- NOTE | 2020-10-19 19:44 | NUR ---
PT HAS HAD UNEVENTFUL DAY SINCE HIS ARRIVAL FROM ICU. THE PATIENT DID ATTEMPT TO EAT HIMSELF, BUT WAS VERY SHAKEY. PT IS VERY QUIET WHEN TALKING USING JUST A WHISPER. THE PATIENT COMPLAINED OF SOME LEG PAIN. THIS RN GAVE THE PATIENT SOME FLEXERIL TO HELP WITH THE LEG MUSCLE ACHING. HE DENIES ANY OTHER NEEDS AT THIS TIME. NO FURTHER CONCERNS.
[2020-10-20] VITALS (7 sets, daily range): BP systolic 122–152; BP diastolic 79–98; PULSE 85–100; TEMP 97.9–98.7
[2020-10-20 08:14] LABS: HEMATOCRIT 39.3 % (42.0-52.0); MEAN CELL VOLUME 104 fl (80.0-100.0); MEAN CORPUSCULAR HEMOGLOBIN 35 pg (27.0-31.0); MEAN CORPUSCULAR HGB CONC 33 g/dl (33.0-37.0); MEAN PLATELET VOLUME 10.5 fl (7.4-10.4); PLATELET COUNT 293 K/mm3 (130-400); RED BLOOD COUNT 3.77 M/mm3 (4.20-5.60)
[2020-10-20 08:22] LABS: CALCIUM 9.4 mg/dL (8.4-10.2); CREATININE, serum 0.72 (0.66-1.25); MAGNESIUM 1.9 mg/dL (1.6-2.3); POTASSIUM 3.5 mmol/L (3.4-5.0)
--- NOTE | 2020-10-20 13:16 | NUR ---
Pt assessment completed and charted, meds administered per may. Pt alert, unable to assess orientation, pt responds w/ mumbles and incoherent speech, occasional clear words. Pt is cooperative with cares. Pt denies pain. Pt rolled out of bed @ 1100, unwitnessed, bed alarm was going off, this nurse in another room with pt, staff approached pt room, VS obtained, no injuries reported or seen. No further concerns expressed at this time.
--- NOTE | 2020-10-20 16:41 | NUR ---
SW attended clinical rounds. The patient may be able to d/c soon. The patient still appears heavily sedated. SW contacted the patient's son, Dio, and discussed post-acute rehab. Dio is agreeable to post-acute rehab. He would prefer and IPR over SNF, but is open for SW to send referrals. SHADIA consulted IPR Director, Norah. SHADIA faxed referrals to [facility], [facility], [facility], and [facility]. Awaiting screens.
[2020-10-21] VITALS (7 sets, daily range): BP systolic 122–168; BP diastolic 80–103; PULSE 73–99; TEMP 97.5–98.7
[2020-10-21 07:04] LABS: HEMOGLOBIN 13.5 g/dl (13.5-18.0); MEAN CELL VOLUME 103 fl (80.0-100.0); MEAN CORPUSCULAR HEMOGLOBIN 35 pg (27.0-31.0); MEAN CORPUSCULAR HGB CONC 34 g/dl (33.0-37.0); MEAN PLATELET VOLUME 10.3 fl (7.4-10.4); PLATELET COUNT 342 K/mm3 (130-400); REDCELL DISTRIBUTION WIDTH-CV 11.9 % (11.5-14.5)
[2020-10-21 07:13] LABS: CALCIUM 9.5 mg/dL (8.4-10.2); CREATININE, serum 0.69 (0.66-1.25); MAGNESIUM 1.9 mg/dL (1.6-2.3); POTASSIUM 3.9 mmol/L (3.4-5.0)
--- NOTE | 2020-10-21 13:47 | NUR ---
Sera, at [facility], reports that they have declined the patient.
[2020-10-22 05:41] VITALS: BP 128/81; PULSE 84; TEMP 97.9
--- NOTE | 2020-10-22 06:10 | NUR ---
PATIENT HAD A CALM NIGHT.DENIES NAUSEA,VOMITTING AND PAIN.SAFETY MEASURES CONTINUED.NO OTHER NEEDS AT THIS TIME.
[2020-10-22 07:48] LABS: CALCIUM 9.5 mg/dL (8.4-10.2); CREATININE, serum 1.06 (0.66-1.25); POTASSIUM 3.8 mmol/L (3.4-5.0)
[2020-10-22 08:26] VITALS: BP 139/92; PULSE 88; TEMP 97.8
--- NOTE | 2020-10-22 08:30 | NUR ---
Patient was crooked in bed stating that he "needed to get out of the bed to see the doctor". This RN and another RN boosted the patient up in bed and sat him up for breakfast. Patient asked if the doctor still comes around 0830. This RN told the patient yes, sometimes 0900 and to be patient. Patient was understanding. Morning medications were adminstered with applesauce and shift assessment was completed.
[2020-10-22 11:24] VITALS: BP 129/83; PULSE 89; TEMP 98.7
[2020-10-22 17:27] VITALS: BP 138/83; PULSE 78; TEMP 97.5
--- NOTE | 2020-10-22 18:17 | NUR ---
Patient has been resting in bed all day. Did get up and walk with PT a bit. Patient reqested to lay with his head at the opposite end of the bed. Bed alarm is on. Patient's son did visit the patient today, this seemed to help the patient feel a bit better mentally. Patient has not been scoring high enough on CIWA to require PRN lorazepam. Patient has not had any complaints. Patient's sheets were changed and bedbath was given by this RN and assigned PCT.
[2020-10-22 20:08] VITALS: BP 115/73; BP 172/64; PULSE 55; PULSE 78; TEMP 98.6
[2020-10-23 00:16] VITALS: BP 106/69; PULSE 77; TEMP 97.9
[2020-10-23 06:06] VITALS: BP 128/81; PULSE 82; TEMP 97.6
--- NOTE | 2020-10-23 07:00 | NUR ---
Report received from DC Trinidad. Pt. resting in bed, awake. Pt.'s speech difficult to understand at times. Pt. able to make needs known by requesting water. DC Trinidad reports pt impulsive at times. Bed alarm on, call light in reach. Contact precautions maintained.
--- NOTE | 2020-10-23 08:00 | NUR ---
Head to toe assessment performed. Pt. sitting up OOB in chair, chair alarm on. Pt. answering questions appropriately. Pt. reporting 8/10 posterior neck pain, requesting bengay ointment. Will contact provider to inquire about medication.
[2020-10-23 08:12] VITALS: BP 138/83; PULSE 79; TEMP 98
[2020-10-23 12:02] VITALS: BP 119/77; PULSE 89; TEMP 98.7
--- NOTE | 2020-10-23 17:43 | NUR ---
Pt. has not been incontinent today, voiding when this RN offers urinal. Urine this AM dark, Fluids were encouraged throughout the shift. Pt.'s son came to visit today. Pt. reports moderate anxiety but reassured w/ conversation and education on plan of care. Pt. has been OOB for meals and ambulated with this RN about 250 feet. Pt additonally unsteady and this RN securely held on to pt.'s gait belt to ensure steadiness throughout the ambulation. Pt. now on room air, O2 sat 94%.
[2020-10-23 17:47] VITALS: BP 111/75; PULSE 82; TEMP 98.5
[2020-10-23 19:44] VITALS: BP 107/72; PULSE 82; TEMP 98.1
--- NOTE | 2020-10-23 20:00 | NUR ---
Report received, assumed care for info analyst. Assessment comlete. A&Ox3. Denies pain/nausea/shortenss of breath. VS stable. Scoring 2-3 on CIWA protocol. NOted to have small amount of blood in brief with urination. PICC to right upper arm flushed-very difficulty to flush. Did get blood back from purple port but none from red port. Plan of care discussed for this shift to include HS meds/detox protocol/calling for questions/concerns. Verbalizes understanding/denies needs. Call light in reach/bed alarm on. Will monitor.
[2020-10-24 00:51] VITALS: BP 97/64; PULSE 69; TEMP 98
--- NOTE | 2020-10-24 02:54 | NUR ---
Patient agitated because he doesnt want to be here anymore. States he is ready to get out of here. Trying to climb out of bed over railings. Serouquel given per dr keith.
[2020-10-24 03:07] VITALS: BP 113/53; PULSE 80; TEMP 98.3
--- NOTE | 2020-10-24 04:18 | NUR ---
Turned construction equipment mechanic helper light-this nurse went straight to room to answer it as speaks very low when talking and can not be heard. States he had been yelling out for hours and now one would come. No one heard any yelling out and did not press call light. Discussed using call light because we would not be able to hear his voice. States "get some hearing aids." Denies current needs just states "you are to late, never mind." Slightly agitated but calm when I left room. Will continue to monitor.
[2020-10-24 06:57] LABS: BASO # 0.1 (0.0-0.2); BASO % 0.7 % (0.0-2.0); EOS # 0.4 (0.0-0.7); EOS % 5.5 % (0-4.0); GRAN # 4.2 (1.4-6.5); GRAN % 57.7 % (42.2-75.2); HEMATOCRIT 39.3 % (42.0-52.0); HEMOGLOBIN 13.3 g/dl (13.5-18.0); LYMPH # 2.1 (1.2-3.4); LYMPH % 28.3 % (20.0-51.0); MEAN CELL VOLUME 101 fl (80.0-100.0); MEAN CORPUSCULAR HEMOGLOBIN 34 pg (27.0-31.0); MEAN CORPUSCULAR HGB CONC 34 g/dl (33.0-37.0); MEAN PLATELET VOLUME 10.3 fl (7.4-10.4); MONO # 0.5 (0.1-0.6); MONO % 7.2 % (1.7-9.3); PLATELET COUNT 306 K/mm3 (130-400); RED BLOOD COUNT 3.91 M/mm3 (4.20-5.60); REDCELL DISTRIBUTION WIDTH-CV 11.6 % (11.5-14.5)
--- NOTE | 2020-10-24 07:00 | NUR ---
Report with DC Olvera. Pt resting in bed with eyes closed, resp even and unlabored. Call light in reach. Bed alarm on.
[2020-10-24 07:10] LABS: CREATININE, serum 1.56 (0.66-1.25); POTASSIUM 3.8 mmol/L (3.4-5.0)
--- NOTE | 2020-10-24 07:49 | NUR ---
Pt assisted up to chair with assist x 2 and walker. Pt states, "the doctor told me I can't be laying around in bed all the time." This nurse agrees but reminds pt that he cannot be up in the room without assistance. Pt verbalizes understanding, denies further c/o or needs. Call light in reach. Chair alarm in place.
[2020-10-24 08:00] VITALS: BP 113/65; PULSE 89; TEMP 97.8
[2020-10-24 10:56] VITALS: BP 128/67; PULSE 87; TEMP 98.3
--- NOTE | 2020-10-24 11:18 | NUR ---
When pt was done with the shower, ANIMAL CONTROL LICENSING WORKER was assisting with getting pt dry and floor dry d/t water overflow. When ANIMAL CONTROL LICENSING WORKER turned to get pt's walker, the pt decided to stand on his own and fell on the bathroom floor, ANIMAL CONTROL LICENSING WORKER calls for help. This nurse and second floor nurse enter room to assist with getting pt safely back to bed. Pt denies pain and no injury noted. VSS. Pt back in bed and denies needs at this time. Call light in reach. Bed alarm on.
[2020-10-24 16:00] VITALS: BP 110/75; PULSE 88; TEMP 97.5
--- NOTE | 2020-10-24 16:54 | NUR ---
Norah, [facility] Director, reports that she is submitting for auth today. SW faxed updates to [facility], [facility], and [facility]. Naty, at [facility], reports that they have declined the patient. Panchito, at [facility], reports that they will not had a male bed until Saturday.
--- NOTE | 2020-10-24 17:00 | NUR ---
Pt reporting irritation to right groin area from brief being tight, asking for cream. Barrier cream placed to site. Pt reports not able to feel right leg, but does withdraw from pain, movement WNL, and pedal pulses palpable. No further needs reported. Call light in reach.
[2020-10-24 19:32] VITALS: BP 119/64; PULSE 84; TEMP 97.4
--- NOTE | 2020-10-24 21:45 | NUR ---
Pt doing ok . Currently sleeping. Ciwa has been 3 for now. Will continue to monitor.
[2020-10-25] VITALS (7 sets, daily range): BP systolic 95–134; BP diastolic 52–83; PULSE 71–96; TEMP 97.5–98.6
--- NOTE | 2020-10-25 10:35 | NUR ---
PT SITTING IN RECLINER, EATING BREAKFAST. MORNING MEDICATIONS GIVEN. UNABLE TO DRAW BACK BLOOD OR PUSH NS THROUGH BOTH HUBS OF PICC LINE. PT REPORTS BACK PAIN BETWEEN HIS SHOULDER BLADES. PATIENT IS ALERT AND ORIENTED AND HIS LAST CIWA SCORE WAS A 1. CALL LIGHT IS IN REACH. WILL CONTINUE TO MONITOR.
--- NOTE | 2020-10-25 11:04 | NUR ---
Chair alarm sounding, this nurse enters room, pt trying to get from chair back to bed. Pt sits on very edge of bed, as this nurse attempts to push pt farther onto bed, pt slips down to the floor. Pt denies pain or injury, stating "I'm ok." Second nurse comes in to assist pt to standing and into bed. VSS. Call light within reach. Bed alarm on.
[2020-10-25 12:08] LABS: CALCIUM 9.5 mg/dL (8.4-10.2); CREATININE, serum 1.28 (0.66-1.25); POTASSIUM 4.2 mmol/L (3.4-5.0)
[2020-10-25 12:24] LABS: BASO # 0.1 (0.0-0.2); EOS # 0.3 (0.0-0.7); EOS % 4.3 % (0-4.0); GRAN # 4.1 (1.4-6.5); GRAN % 61.4 % (42.2-75.2); HEMATOCRIT 43.5 % (42.0-52.0); HEMOGLOBIN 14.2 g/dl (13.5-18.0); LYMPH # 1.7 (1.2-3.4); LYMPH % 25.6 % (20.0-51.0); MEAN CELL VOLUME 107 fl (80.0-100.0); MEAN CORPUSCULAR HEMOGLOBIN 35 pg (27.0-31.0); MEAN CORPUSCULAR HGB CONC 33 g/dl (33.0-37.0); MEAN PLATELET VOLUME 10.4 fl (7.4-10.4); MONO # 0.5 (0.1-0.6); MONO % 7.4 % (1.7-9.3); PLATELET COUNT 343 K/mm3 (130-400); RED BLOOD COUNT 4.05 M/mm3 (4.20-5.60)
--- NOTE | 2020-10-25 16:41 | NUR ---
Norah, [facility] Director, reports that they have stopped prior-auth and will not be able to take the patient at this time now. SHADIA followed up with Panchito at [facility]. Panchito reports that they have declined the patient. SHADIA contacted and faxed referrals to [facility], [facility], [facility], [facility], [facility], [facility], [facility], and [facility]. Awaiting screens. The patient has Medicare [employer]. SHADIA contacted and faxed the patient's records to [facility] for prior-auth. Awaiting auth. SHADIA met with the patient to update and to discuss a DPOA-HC. The patient states that his son, Redd is DPOA-HC. SW informed him how he does not have a DPOA-HC completed yet. The patient verbalized understanding. The patient verbalized that a DPOA-HC allows someone to make decisions for him, if he cannot. He states that he would want Redd to be his DPOA-HC and he was interested in completing a DPOA-HC while here. SHADIA provided the form. The patient designated Redd. SHADIA and community planning technician, Kelsi, witnessed the patient's signature. SHADIA provided the patient with the original and some copies. SHADIA to place a copy in the patient's chart.
--- NOTE | 2020-10-25 22:34 | NUR ---
Pt has been ok but try to get out of bed several time. pt was able to redirect back to bed. Will continue to monitor.
[2020-10-26] VITALS (9 sets, daily range): BP systolic 94–145; BP diastolic 48–97; PULSE 70–118; TEMP 97.4–98.7
[2020-10-26 06:56] LABS: BASO # 0.1 (0.0-0.2); BASO % 0.7 % (0.0-2.0); EOS # 0.3 (0.0-0.7); EOS % 4.9 % (0-4.0); GRAN # 3.6 (1.4-6.5); HEMATOCRIT 43.4 % (42.0-52.0); HEMOGLOBIN 14.5 g/dl (13.5-18.0); LYMPH # 2.3 (1.2-3.4); LYMPH % 32.9 % (20.0-51.0); MEAN CELL VOLUME 104 fl (80.0-100.0); MEAN CORPUSCULAR HEMOGLOBIN 35 pg (27.0-31.0); MEAN CORPUSCULAR HGB CONC 33 g/dl (33.0-37.0); MONO # 0.6 (0.1-0.6); MONO % 8.1 % (1.7-9.3); PLATELET COUNT 356 K/mm3 (130-400); RED BLOOD COUNT 4.17 M/mm3 (4.20-5.60); REDCELL DISTRIBUTION WIDTH-CV 11.7 % (11.5-14.5)
[2020-10-26 07:10] LABS: CALCIUM 9.5 mg/dL (8.4-10.2); CREATININE, serum 1.11 (0.66-1.25); POTASSIUM 4.6 mmol/L (3.4-5.0)
--- NOTE | 2020-10-26 07:22 | NUR ---
Bedside shift report complete. Bed alarm went off, pt. wet and requesting to get up. This RN and HOME HEALTH CARE RESPIRATORY THERAPIST Evie checked on patient. Pt. now getting washed up with Evie. This RN took care of pt. on Saturday, pt. asked if he remembered this RN and he said yes. Safety and contact precautions maintained.
--- NOTE | 2020-10-26 12:41 | NUR ---
Pt.'s PICC to R upper arm sluggish when flushed. This RN was able to flush but no blood return noted. This RN notified ALEXANDRA Case, ALEXANDRA Case reccomending for this RN to contact BRANDY (PICC) nurse. BRANDY phone number called, no answer, this RN left a message with callback number in message.
--- NOTE | 2020-10-26 13:18 | NUR ---
Marquis, at [facility], reports that they have authorized SNF and requests that SW contact her back with the accepting facility. Plan Auth ID [id number]. Emely, at [facility], reports that they have declined the patient. Riri, at [facility], reports that they should be able to accept the patient, but [facility]. SHADIA informed her of Marquis's phone number with [facility]. Riri then contacted SHADIA back. Riri reports they are [id number] with the patient's insurance, but can still take him. SHADIA contacted Laura at [facility] and informed her that [facility] is the only accepting facility. Laura reports that the patient has [id number] benefits. She states that he might just have a higher deductible. She states that they will put [place] in as the accepting facility. SHADIA met with the patient and his son, Redd, and updated him on the above. The patient and his son verbalized understanding. The patient reports that he is agreeable to going to [facility]. Redd was supportive of his decision. SHADIA presented and read the IM form outloud to the patient. The patient verbalized understanding and signed the form. SHADIA provided him with a copy. SHADIA updated Riri at [facility]. Riri reports that they are able to accept the patient tomorrow and will be here at 1030 to corn picker the patient. SHADIA updated the patient, his son (Redd), and the PA.
--- NOTE | 2020-10-26 19:02 | NUR ---
About 30 minutes ago, pt. reporting pain to posterior neck, it was too early for Tylenol. ALEXANDRA Davis notified, this RN requesting Lidocaine patch for patient. Susan reports she will put in a lidocaine patch for the patient. This RN assessed patient, and he was fast asleep. This RN did not give mag medication nor multivitamin because of unplanned interruption, when this RN attempted to check on patient again, he was sleeping. This RN let patient sleep, and let oncoming DC Trinidad know the two medications were not given. DC Trinidad reports she will reassess patient and possibly see if he wants to take his vitamins tonight with evening medications.
--- NOTE | 2020-10-26 20:00 | NUR ---
Assessment complete. Patient is partially oriented with complaints of lower back pain. Lidocaine pain patch is applied. He is breathing RA with no signs of increased work of breathing. He ambulates to bathroom with x1 assist, gait belt and walker to void; his gait is unsteady and he does not manage to urinate only in the toilet. Vital signs are stable and patient is provided with partial bed bath. Awaiting placement tomorrow AM. PAtient has been impulsive getting out of bed several times overnight. Bed alarm set, will continue to monitor.
[2020-10-27 04:58] VITALS: BP 132/79; PULSE 80; TEMP 97.6
[2020-10-27 07:06] LABS: BASO # 0.1 (0.0-0.2); BASO % 0.9 % (0.0-2.0); EOS # 0.3 (0.0-0.7); EOS % 3.6 % (0-4.0); GRAN # 4.6 (1.4-6.5); HEMATOCRIT 41.5 % (42.0-52.0); HEMOGLOBIN 13.8 g/dl (13.5-18.0); LYMPH # 2.8 (1.2-3.4); LYMPH % 33.4 % (20.0-51.0); MEAN CELL VOLUME 104 fl (80.0-100.0); MEAN CORPUSCULAR HEMOGLOBIN 34 pg (27.0-31.0); MEAN CORPUSCULAR HGB CONC 33 g/dl (33.0-37.0); MONO # 0.7 (0.1-0.6); MONO % 7.7 % (1.7-9.3); PLATELET COUNT 333 K/mm3 (130-400); RED BLOOD COUNT 4.01 M/mm3 (4.20-5.60); REDCELL DISTRIBUTION WIDTH-CV 11.6 % (11.5-14.5)
[2020-10-27 07:09] LABS: BILIRUBIN,TOTAL 1.1 mg/dL (0.0-1.0); CALCIUM 9.4 mg/dL (8.4-10.2); CREATININE, serum 1.02 (0.66-1.25); POTASSIUM 4.6 mmol/L (3.4-5.0); TOTAL PROTEIN 7.5 gm/dL (6.4-8.2)
--- NOTE | 2020-10-27 07:09 | NUR ---
Bedside shift report complete. Pt alert and able to answer questions. Pt. expressed concerns about discharge for today. DC Trinidad provided reassurance to patient. Call light in reach, bed alarm on for safety.
--- NOTE | 2020-10-27 08:05 | NUR ---
Pt. requested to get OOB to wash hairbrush. Pt. appears anxious about plans for discharge today. Pt was able to get OOB using walker, a standby assist and the gait belt. Reassurance provided to patient about plan of care. Bed alarm on for safety.
[2020-10-27 08:41] VITALS: BP 130/81; PULSE 84; TEMP 97.9
[2020-10-27] MEDS ORDERED: TOPROL XL 50MG50 MG PO (08:55)
[2020-10-27] MEDS ORDERED: ASPIRIN 81M81 MG/TA2 PO (08:56)
[2020-10-27] MEDS ORDERED: FOLIC ACID 11 MG/TA1 PO (08:58)
[2020-10-27] MEDS ORDERED: THIAMINE 1100 MG/TAB PO (08:58)
[2020-10-27] MEDS ORDERED: LASIX 20MG TABL20 MG PO (08:58)
[2020-10-27] MEDS ORDERED: MELATIN 3 MG-11 TAB PO (08:59)
[2020-10-27] MEDS ORDERED: DUO-KAPS1 CAP PO (08:59)
[2020-10-27] MEDS ORDERED: TYLENOL 325MG325 MG PO (09:00)
[2020-10-27] MEDS ORDERED: NICODERM C14 MG/PATC TD (09:03)
[2020-10-27] MEDS ORDERED: ATIVAN 1MG T1 MG/TAB PO (09:04)
--- NOTE | 2020-10-27 09:11 | NUR ---
The patient is to discharge today, 10/27, to [facility] for a skilled stay. Transportation was scheduled around 1030, via [place]. SHADIA informed the patient and his RN of the time. They were both agreeable to the time. SHADIA attempted to contact and confirm time with the patient's son, Redd. Redd's new phone number that he provided to SHADIA yesterday, , does have voicemail set up. SHADIA left a voicemail on his other phone number [phone]. No additional needs at this time.
--- NOTE | 2020-10-27 10:45 | NUR ---
PT. discharged to [facility]. Pt. left unit via wheelchair with [facility] staff. Report called to nurse Elina. Elina was provided a throrough report and she was also notified the Pt. did not receive his AM meds due to an unplanned interruption on the medical unit for this RN. Elina notified pt. is at risk for falls. Elina, nurse verbalized understanding
== END 2020-10-27 10:45 | DRG 896 ==
LOC: COL.ER 11:07 → ICU 15:11 → MEDICAL 15:11 → ICU 09-25 21:03 → MEDICAL 09-25 21:03 → ICU 09-25 21:03 → MEDICAL 09-27 18:36 → ICU 09-27 18:36 → MEDICAL 10-19 14:30 → ICU 10-19 14:30 → MEDICAL 10-19 15:13
PROVIDERS: Emergency Medicine; Family Medicine; Internal Medicine; Internal Medicine Pulmonary Disease; Physician Assistant; Student in an Organized Health Care Education/Training Program; ADMIT Internal Medicine
PROC: HZ2ZZZZ Detoxification Services for Substance Abuse Treatment (ICD-10-PCS; 2020-09-24)
PROC: 02HV33Z Insertion of Infusion Device into Superior Vena Cava, Percutaneous Approach (ICD-10-PCS; principal; 2020-09-29)
PROC: 009U3ZX Drainage of Spinal Canal, Percutaneous Approach, Diagnostic (ICD-10-PCS; 2020-10-18)
DX: F10.231 Alcohol dependence with withdrawal delirium (principal); G92 Toxic encephalopathy; E43 Unspecified severe protein-calorie malnutrition; J18.9 Pneumonia, unspecified organism; I21.A1 Myocardial infarction type 2; E87.3 Alkalosis; N17.9 Acute kidney failure, unspecified; N99.820 Postprocedural hemorrhage of a genitourinary system organ or structure following a genitourinary system procedure; I42.9 Cardiomyopathy, unspecified; I50.20 Unspecified systolic (congestive) heart failure; D61.818 Other pancytopenia; G72.1 Alcoholic myopathy; R13.10 Dysphagia, unspecified; E83.51 Hypocalcemia; J32.2 Chronic ethmoidal sinusitis; E87.5 Hyperkalemia; E87.6 Hypokalemia; D69.6 Thrombocytopenia, unspecified; E83.42 Hypomagnesemia; Y83.8 Other surgical procedures as the cause of abnormal reaction of the patient, or of later complication, without mention of misadventure at the time of the procedure; J01.20 Acute ethmoidal sinusitis, unspecified; K76.0 Fatty (change of) liver, not elsewhere classified; Z20.822 Contact with and (suspected) exposure to COVID-19; R31.9 Hematuria, unspecified; I11.0 Hypertensive heart disease with heart failure; I48.0 Paroxysmal atrial fibrillation; D72.819 Decreased white blood cell count, unspecified; F41.0 Panic disorder [episodic paroxysmal anxiety]; F20.9 Schizophrenia, unspecified; F17.210 Nicotine dependence, cigarettes, uncomplicated; M19.90 Unspecified osteoarthritis, unspecified site
CPT/HCPCS: 99223-AI; 99231-AI; 99232-AI; 99233-AI; 99239; A4314; C1751; J0330; J0360; J0610; J1450; J1630; J1650; J1720; J1815; J1885; J1940; J2060; J2250; J2270; J2310; J2543; J2704; J3010; J3360; J3370; J3411; J3475; J3480; J7030; J7050; J7060; J7131; Q9967

== ENCOUNTER 2020-11-29 10:00 | Inpatient (IN) | payer MEDICARE ==
[~2020-11-29] VITALS: Ht 167.6 cm; Wt 103.6 kg
[2020-11-29] VITALS (253 sets, daily range): BP systolic 144–170; BP diastolic 96–110; PULSE 73–97; TEMP 98.9–99.1; O2SAT 76–100
[~2020-11-29 10:00] MED LIST changes: +ASPIRIN 81M81 MG/TA2 PO; +ATIVAN 1MG T1 MG/TAB PO; +DUO-KAPS1 CAP PO; +FOLIC ACID 11 MG/TA1 PO; +LASIX 20MG TABL20 MG PO; +MELATIN 3 MG-11 TAB PO; +NICODERM C14 MG/PATC TD; +THIAMINE 1100 MG/TAB PO; +TOPROL XL 50MG50 MG PO; +TYLENOL 325MG325 MG PO
[2020-11-29] MEDS ORDERED: CATAPRES0.2 MG PO (10:14)
[2020-11-29 10:55] LABS: BASO % 0.4 % (0.0-2.0); EOS % 0.3 % (0-4.0); GRAN % 67.7 % (42.2-75.2); HEMATOCRIT 39.8 % (42.0-52.0); HEMOGLOBIN 13.7 g/dl (13.5-18.0); LYMPH # 1.8 (1.2-3.4); LYMPH % 24.5 % (20.0-51.0); MEAN CELL VOLUME 101 fl (80.0-100.0); MEAN CORPUSCULAR HEMOGLOBIN 35 pg (27.0-31.0); MEAN CORPUSCULAR HGB CONC 34 g/dl (33.0-37.0); MEAN PLATELET VOLUME 10.3 fl (7.4-10.4); MONO # 0.5 (0.1-0.6); MONO % 6.8 % (1.7-9.3); PLATELET COUNT 111 K/mm3 (130-400); RED BLOOD COUNT 3.94 M/mm3 (4.20-5.60); REDCELL DISTRIBUTION WIDTH-CV 12.2 % (11.5-14.5)
[2020-11-29 11:16] LABS: CALCIUM 9.4 mg/dL (8.4-10.2); CREATININE, serum 1.13 (0.66-1.25); POTASSIUM 4.4 mmol/L (3.4-5.0)
[2020-11-29 11:17] LABS: ALBUMIN 4.4 gm/dL (3.5-5.0); BILIRUBIN,TOTAL 1.8 mg/dL (0.0-1.0); TOTAL PROTEIN 7.9 gm/dL (6.4-8.2); TROPONIN-I 0.028 ng/mL (0.000-0.035)
--- NOTE | 2020-11-29 15:30 | NUR ---
MR. RODRIGUEZ ARRIVED ON FLOOR FROM ED. HE WAS ABLE TO TRANSFER HIMSELF FROM ED BED TO ICU BED WITHOUT HELP OR COMPLICATIONS USING OWN STRENGTH. PT VITALS STABLE ,ON RA, ALERT AND ORIENTED, VERY TREMULOUS ON OBSERVATION AND HTN. WILL EVALUATE CIWA ORDERS FOR SYMPTOM MANAGEMENT.
[2020-11-29 15:49] LABS: INR 1.1 (0.8-3.0); PROTHROMBIN TIME 12.2 SECONDS (9.7-12.8)
--- NOTE | 2020-11-29 22:56 | NUR ---
ALERT ANDOX3. VISABLE SHAKING- TREMORS. C/O JOLTING GOING THROUGH LEGS ALONG W VISUAL HALLUCINATION. ATIVAN GIVEN PO\IV PER CIWA PROTOCOL. BANANNA BAG HUNG TO RT UPPER ARM PICC GOING AT 100ML PER HR PER CICI PA ORDERED DUE TO PT EF GOING AT SLOWER RATE. IV TO LT HAND INTACT, FLUSHED. CALL LIGHT WI REACH. BED IN LOW POSITION. PT COOPERATIVE AT THIS TIME AND THANKFUL FOR CARE.
[2020-11-30] VITALS (520 sets, daily range): BP systolic 111–165; BP diastolic 85–106; PULSE 64–109; TEMP 98.3–99.3; O2SAT 71–100
--- NOTE | 2020-11-30 01:57 | NUR ---
PT DESATING OCC TO 88-89 WHEN SLEEPING. 2L O2 N/C APPLIED. PT HAVING SOME HALLCINATION THINKING HIS BED IS GOING UP AND HE CAN SEE THE FLOOR AT THE END OF THE BED. ALSO SCARED HE IS GOING TO FALL OUT OF BED AT TIMES. ATIVAN GIVEN PER PROTOCOL.
[2020-11-30 05:18] LABS: BASO % 0.6 % (0.0-2.0); EOS # 0.1 (0.0-0.7); EOS % 1.7 % (0-4.0); GRAN % 57.4 % (42.2-75.2); LYMPH # 1.7 (1.2-3.4); LYMPH % 32.3 % (20.0-51.0); MEAN CELL VOLUME 100 fl (80.0-100.0); MEAN CORPUSCULAR HGB CONC 34 g/dl (33.0-37.0); MEAN PLATELET VOLUME 10.4 fl (7.4-10.4); MONO # 0.4 (0.1-0.6); MONO % 7.6 % (1.7-9.3); PLATELET COUNT 83 K/mm3 (130-400); RED BLOOD COUNT 3.27 M/mm3 (4.20-5.60); REDCELL DISTRIBUTION WIDTH-CV 11.9 % (11.5-14.5)
[2020-11-30 05:21] LABS: HEMATOCRIT 32.8 % (42.0-52.0); HEMOGLOBIN 11.2 g/dl (13.5-18.0); MEAN CORPUSCULAR HEMOGLOBIN 34 pg (27.0-31.0)
--- NOTE | 2020-11-30 05:28 | NUR ---
PT DID NOT REST MUCH LAST NIGHT SCORING 8-9 CIWA. WITH HALLCINATIONS OF FALLING OUT OF BED AND WORRIED HE MAY FALL OUT WINDOW. ASK THIS NURSE TO TIE HIM DOWN TO BED W ORANGE CORD TO SECURE. REORIENTATED. PILLOWS AND SIDE RALES UP FOR COMFORT. O2 DROPING OCC , ? FAITH. POPS RIGHT BACK UP WITH IN A FEW SECONDS OF DROPPING. MORE AGGITATED THIS AM WITH SITUATION BUT COOPERATIVE.
[2020-11-30 05:32] LABS: ALBUMIN 3.6 gm/dL (3.5-5.0); BILIRUBIN,TOTAL 3.6 mg/dL (0.0-1.0); CALCIUM 8.4 mg/dL (8.4-10.2); CREATININE, serum 0.86 (0.66-1.25); POTASSIUM 3.9 mmol/L (3.4-5.0); TOTAL PROTEIN 6.4 gm/dL (6.4-8.2)
--- NOTE | 2020-11-30 06:41 | NUR ---
PT SON LORETO CALLS TO GET UPDATE. WILL BE UP TODAY TO VISIT HIS FATHER.
--- NOTE | 2020-11-30 13:10 | NUR ---
DR. CALL CALLED REGARDING INCREASED RESTLESSNESS. I INQUIRE ABOUT ADDING SOMETHING TO HELP WITH BOTH PSYCH AND DETOX SYMPTOMS. HE GIVES ORDER FOR PRN SEROQUEL.
--- NOTE | 2020-11-30 13:52 | NUR ---
First visit from the industrial designer. No needs right now.
--- NOTE | 2020-11-30 15:00 | NUR ---
PATIENT IS VERY RESTLESS. HALLUCINATING AND TALKING TO PEOPLE THAT ARE NOT IN THE ROOM. HE SAYS THINGS LIKE" I NEED TO GET TO THE HOSPITAL" " I'M TRYING TO COOPERATE WITH THE OFFICERS." "WE GOTTA GO PAY THE BILLS". HE IS REDIRECTED BACK TO BED. BED ALARM ACTIVATED. FALL SIGN IN PLACE AND YELLOW SLIPPERS ON PATIENT.
--- NOTE | 2020-11-30 15:19 | NUR ---
Dary with [facility] states they can accept patient upon discharge if he is requiring snf. tea plantation worker met with patient's son, Redd, to discuss inpatient rehab treatments and discharge planning. Worker offered support to son. Patient discharged from [facility] and began drinking again.
--- NOTE | 2020-11-30 16:16 | NUR ---
DR. CALL IS CALLED REGARDING INCREASED ANXIETY AND PATIENT ASKING FOR MORE MEDICATION TO CALM HIS NERVES. ALL PRN MEDICATIONS AND SCHEDULED MEDS HAVE BEEN GIVEN. PATIENT IS ALSO STARTING TO HAVE HALLUCINATIONS ALONG WITH AGITATION AND ANXIETY. ONE TIME ORDER RECEIVED FOR HALDOL IV.
--- NOTE | 2020-11-30 17:30 | NUR ---
Dr. Blanco called about this patient. None of the PRN medications are working for his detox symptoms. Order received for Precedex gtt.
--- NOTE | 2020-11-30 19:00 | NUR ---
After being at the bedside for over an hour, the patient is finally asleep on the precedex gtt. He is maintaining his airway and VS improving. Bed Alarm continues to be activated. Will continue to monitor.
--- NOTE | 2020-11-30 19:30 | NUR ---
Report given to DC Prince.
[2020-12-01] VITALS (81 sets, daily range): BP systolic 132–158; BP diastolic 84–109; PULSE 63–95; TEMP 96.8–99.1; O2SAT 97–98
[2020-12-01 05:03] LABS: BASO % 0.4 % (0.0-2.0); EOS # 0.2 (0.0-0.7); EOS % 4.6 % (0-4.0); GRAN # 2.9 (1.4-6.5); GRAN % 60.1 % (42.2-75.2); LYMPH # 1.3 (1.2-3.4); LYMPH % 27.1 % (20.0-51.0); MEAN CELL VOLUME 97 fl (80.0-100.0); MEAN CORPUSCULAR HEMOGLOBIN 34 pg (27.0-31.0); MEAN CORPUSCULAR HGB CONC 35 g/dl (33.0-37.0); MEAN PLATELET VOLUME 10.6 fl (7.4-10.4); MONO # 0.4 (0.1-0.6); MONO % 7.4 % (1.7-9.3); PLATELET COUNT 68 K/mm3 (130-400); RED BLOOD COUNT 3.27 M/mm3 (4.20-5.60); REDCELL DISTRIBUTION WIDTH-CV 11.6 % (11.5-14.5)
[2020-12-01 05:04] LABS: HEMATOCRIT 31.6 % (42.0-52.0)
[2020-12-01 05:11] LABS: CALCIUM 8.3 mg/dL (8.4-10.2); CREATININE, serum 0.64 (0.66-1.25); POTASSIUM 3.6 mmol/L (3.4-5.0)
[2020-12-02] VITALS (242 sets, daily range): BP systolic 111–159; BP diastolic 66–109; PULSE 67–95; TEMP 98–99.1; O2SAT 91–97
[2020-12-02 04:29] LABS: BASO % 0.3 % (0.0-2.0); EOS # 0.3 (0.0-0.7); EOS % 4.5 % (0-4.0); GRAN # 3.6 (1.4-6.5); GRAN % 58.4 % (42.2-75.2); HEMOGLOBIN 10.4 g/dl (13.5-18.0); LYMPH # 1.8 (1.2-3.4); LYMPH % 29.2 % (20.0-51.0); MEAN CELL VOLUME 97 fl (80.0-100.0); MEAN CORPUSCULAR HEMOGLOBIN 34 pg (27.0-31.0); MEAN CORPUSCULAR HGB CONC 35 g/dl (33.0-37.0); MEAN PLATELET VOLUME 10.5 fl (7.4-10.4); MONO # 0.4 (0.1-0.6); MONO % 7.1 % (1.7-9.3); PLATELET COUNT 58 K/mm3 (130-400); RED BLOOD COUNT 3.06 M/mm3 (4.20-5.60); REDCELL DISTRIBUTION WIDTH-CV 11.9 % (11.5-14.5)
[2020-12-02 04:32] LABS: HEMATOCRIT 29.7 % (42.0-52.0)
[2020-12-02 04:38] LABS: CALCIUM 7.7 mg/dL (8.4-10.2); CREATININE, serum 0.8 (0.66-1.25); POTASSIUM 3.3 mmol/L (3.4-5.0)
[2020-12-03] VITALS (713 sets, daily range): BP systolic 112–170; BP diastolic 66–110; PULSE 60–96; TEMP 97.7–98.7; O2SAT 78–100
[2020-12-03 04:26] LABS: BASO % 0.4 % (0.0-2.0); EOS # 0.2 (0.0-0.7); EOS % 4.2 % (0-4.0); GRAN # 3.1 (1.4-6.5); GRAN % 56.8 % (42.2-75.2); LYMPH # 1.6 (1.2-3.4); LYMPH % 30.1 % (20.0-51.0); MEAN CELL VOLUME 98 fl (80.0-100.0); MEAN CORPUSCULAR HEMOGLOBIN 34 pg (27.0-31.0); MEAN CORPUSCULAR HGB CONC 35 g/dl (33.0-37.0); MEAN PLATELET VOLUME 10.6 fl (7.4-10.4); MONO # 0.4 (0.1-0.6); MONO % 8.1 % (1.7-9.3); PLATELET COUNT 58 K/mm3 (130-400); REDCELL DISTRIBUTION WIDTH-CV 11.9 % (11.5-14.5)
[2020-12-03 04:28] LABS: HEMATOCRIT 31.5 % (42.0-52.0)
[2020-12-03 04:36] LABS: CALCIUM 8.3 mg/dL (8.4-10.2); CREATININE, serum 0.69 (0.66-1.25); POTASSIUM 3.9 mmol/L (3.4-5.0)
[2020-12-04] VITALS (724 sets, daily range): BP systolic 135–176; BP diastolic 78–118; PULSE 74–105; TEMP 97.7–99.1; O2SAT 92–98
[2020-12-04 05:46] LABS: BASO % 0.5 % (0.0-2.0); EOS # 0.1 (0.0-0.7); EOS % 2.1 % (0-4.0); GRAN # 3.6 (1.4-6.5); GRAN % 58.1 % (42.2-75.2); HEMOGLOBIN 11.5 g/dl (13.5-18.0); LYMPH # 1.8 (1.2-3.4); LYMPH % 28.4 % (20.0-51.0); MEAN CELL VOLUME 101 fl (80.0-100.0); MEAN CORPUSCULAR HEMOGLOBIN 35 pg (27.0-31.0); MEAN CORPUSCULAR HGB CONC 35 g/dl (33.0-37.0); MEAN PLATELET VOLUME 10.3 fl (7.4-10.4); MONO # 0.7 (0.1-0.6); MONO % 10.7 % (1.7-9.3); PLATELET COUNT 106 K/mm3 (130-400); RED BLOOD COUNT 3.29 M/mm3 (4.20-5.60); REDCELL DISTRIBUTION WIDTH-CV 12.3 % (11.5-14.5)
[2020-12-04 05:50] LABS: HEMATOCRIT 33.2 % (42.0-52.0)
[2020-12-04 05:58] LABS: CALCIUM 8.7 mg/dL (8.4-10.2); CREATININE, serum 0.65 (0.66-1.25)
--- NOTE | 2020-12-04 13:50 | NUR ---
PATIENT ADMITTED TO ROOM 315 FROM THE ICU. REPORT RECIEVED FROM DC ZELAYA. UPON INITIAL ASSESSMENT NORMAL S1 AND S2 SOUNDS PRESENT, RADIAL AND PEDAL PULSES +2 BILATERALLY, BOWEL SOUNDS PRESENT IN ALL FOUR QUADRANTS, LUNGS CLEAR TO AUSCULTATION, PATIENT A&O X3, GENERALIZED BRUISING AND ABRASIONS NOTED. PATIENT C/O 8/10 PAIN IN LEFT FOOT. DESCRIBES IT "GOUT PAIN". PRN TRAMADOL GIVEN. BP HIGH, HYDRALAZINE GIVEN BEFORE TRANSFER TO THE FLOOR. WILL RECHECK. ALLERGIES AND PHARMACY UPDATED. PATIENT DENIES ANY FURTHER PAIN, DISCOMFOR, SOA, OR NEEDS AT THIS TIME. CALL LIGHT IN REACH. FALL PRECAUTIONS IN PLACE.
--- NOTE | 2020-12-04 17:47 | NUR ---
LAST CIWA SCORE 4. PRN ATIVAN GIVEN ORDERED.
--- NOTE | 2020-12-04 18:17 | NUR ---
CIWA SCORE 7. PRN ATIVAN GIVEN ORDERED.
--- NOTE | 2020-12-04 20:46 | NUR ---
Patient A/Ox3. Patient curently scores 7 on CIWA protocol at shift start. PRN Ativan given per CIWA protocol. Patient reports pain 7/10 to his feet. Scheduled pain med given per MAY. Call light within reach. Bed alarms on. Fall precaution maintained.
[2020-12-05] VITALS (10 sets, daily range): BP systolic 131–179; BP diastolic 78–126; PULSE 76–103; TEMP 97.3–98.5
--- NOTE | 2020-12-05 06:33 | NUR ---
Patient scores between 4-7 on CIWA protocol over the night. PRN Ativan given per CIWA protocol. Patient having hallucinations this morning. Patient reports seeing people in the hallway drinking coffee and also hearing people singing by the door. Call light in reach. Fall precaution maintained.
[2020-12-05 06:37] LABS: BASO % 0.4 % (0.0-2.0); EOS # 0.2 (0.0-0.7); EOS % 2.2 % (0-4.0); GRAN # 4.3 (1.4-6.5); GRAN % 59.5 % (42.2-75.2); HEMOGLOBIN 11.8 g/dl (13.5-18.0); LYMPH # 1.9 (1.2-3.4); LYMPH % 25.9 % (20.0-51.0); MEAN CELL VOLUME 101 fl (80.0-100.0); MEAN CORPUSCULAR HEMOGLOBIN 34 pg (27.0-31.0); MEAN CORPUSCULAR HGB CONC 34 g/dl (33.0-37.0); MEAN PLATELET VOLUME 10.2 fl (7.4-10.4); MONO # 0.8 (0.1-0.6); MONO % 11.6 % (1.7-9.3); PLATELET COUNT 149 K/mm3 (130-400); RED BLOOD COUNT 3.46 M/mm3 (4.20-5.60); REDCELL DISTRIBUTION WIDTH-CV 12.8 % (11.5-14.5)
[2020-12-05 06:39] LABS: HEMATOCRIT 35.1 % (42.0-52.0)
[2020-12-05 06:46] LABS: CALCIUM 8.9 mg/dL (8.4-10.2); CREATININE, serum 0.73 (0.66-1.25); POTASSIUM 3.7 mmol/L (3.4-5.0)
--- NOTE | 2020-12-05 22:46 | NUR ---
Patient A/Ox2. Patient is having hallucinations from starting of shift. Patient reports seeing black shadows outside of the door and hearing people laughing and singing in the hallway. Patient on scores 6 on CIWA protocol at this time. PRN Ativan given per MAR. Patient requests taking a shower tonight. PCT assisted patient taking shower. All scheduled meds given per MAY. Call light in reach. Will continue to monitor.
[2020-12-06] VITALS (8 sets, daily range): BP systolic 107–165; BP diastolic 65–97; PULSE 70–86; TEMP 97.6–98.6
--- NOTE | 2020-12-06 10:00 | NUR ---
Pt assessment complete. Pt is sitting up on the side of the bed upon entry, he is A/O x4. Breathing is even and unlabored on RA. Pt denies SBO. No N/V. Pt denies hallucinations, but asking where his ativan is. When administering ativan patient states "are you sure that's the right amount? It doesn't look like very much". Reassured patient that this is per the protocol. Pt reporting he has great toe pain, scheduled Motrin administered. No needs at this time. Call light within reach.
--- NOTE | 2020-12-06 12:34 | NUR ---
Pt sleeping upon entry, arouses to voice. Pt starts choking up saying he doesn't want to go back to [place] but there is no where else for him to go. Reports he is going to "raise hell" when he gets there, so they don't want him. Discussed if other options were available he states he does not want to go to [place] or [place] and that [place] will take anyone. No other needs at this time. Call light within reach.
--- NOTE | 2020-12-06 16:58 | NUR ---
Pt walked to the hallway requesting his ativan, despite laying in bed napping prior to.
--- NOTE | 2020-12-06 18:19 | NUR ---
Pt sitting on the side of the bed calmly, when entered the room pt states he feels like he is about to have a panic attack. Discussed with patient the ativan protocol and last administration time. Pt states "well when you change someones medications that quickly this will happen" again discussed the doses and reasoning for Ativan and CIWA protocol. Pt content at this time. Eating dinner.
--- NOTE | 2020-12-06 20:19 | NUR ---
PT RESTING IN BED. EVENING MEDICATIONS GIVEN. PICC LINE FLUSHES AND HAS BLOOD RETURN. PT DENIES ANY PAIN BUT STATES HE IS JUST FEELING DEPRESSED TODAY. PT HAS MODERATE TREMORS IN EXTREMITIES. DENIES ANY NEEDS AT THIS TIME. WILL CONTINUE TO MONITOR.
[2020-12-07] VITALS (10 sets, daily range): BP systolic 103–150; BP diastolic 56–99; PULSE 73–97; TEMP 97.8–98.5
--- NOTE | 2020-12-07 02:16 | NUR ---
PT AWAKE AT THIS TIME FOR VITALS AND CIWA. PT REQUESTING ADIVAN, EDUCATED PT THAT SINCE HE IS SCORING BELOW A 4 ADIVAN IS NOT NECESSARY. PT APPREHENSIVE BUT AGREED NOT TO TAKE MADICATION UNTIL IT IS REQUIRED. WILL CONTINUE TO MONITOR.
[2020-12-07 09:21] LABS: BASO % 0.7 % (0.0-2.0); EOS # 0.2 (0.0-0.7); EOS % 2.7 % (0-4.0); GRAN # 2.9 (1.4-6.5); HEMOGLOBIN 11.2 g/dl (13.5-18.0); LYMPH % 33.4 % (20.0-51.0); MEAN CELL VOLUME 103 fl (80.0-100.0); MEAN CORPUSCULAR HEMOGLOBIN 35 pg (27.0-31.0); MEAN CORPUSCULAR HGB CONC 34 g/dl (33.0-37.0); MEAN PLATELET VOLUME 10.2 fl (7.4-10.4); MONO # 0.8 (0.1-0.6); MONO % 13.7 % (1.7-9.3); PLATELET COUNT 115 K/mm3 (130-400); RED BLOOD COUNT 3.21 M/mm3 (4.20-5.60); REDCELL DISTRIBUTION WIDTH-CV 12.9 % (11.5-14.5)
[2020-12-07 09:23] LABS: HEMATOCRIT 33.1 % (42.0-52.0)
[2020-12-07 09:33] LABS: ALBUMIN 3.5 gm/dL (3.5-5.0); BILIRUBIN,TOTAL 0.6 mg/dL (0.0-1.0); CALCIUM 8.4 mg/dL (8.4-10.2); CREATININE, serum 0.71 (0.66-1.25); TOTAL PROTEIN 6.4 gm/dL (6.4-8.2)
--- NOTE | 2020-12-07 14:16 | NUR ---
SHADIA contacted and faxed updates to Dary at [facility]. Dary reports that they would be able to accept the patient again, pending insurance auth. Dary reports that they would also require a CARE Assessment. The patient has Medicare [employer] and requires auth. SHADIA contacted and faxed the patient's insurance to [facility] for prior auth. The rep contacted SHADIA and reports that they are requiring a [id number] with a deadline at 0900 tomorrow. SHADIA notified the patient's PA and provided her with the phone number to call for the [id number].
--- NOTE | 2020-12-07 18:20 | NUR ---
Pt rested in bed most of the day. At times requesting for his Ativan. Pt asking about being discharged as the doctor said he is "medically discharged". Discussed the POC with patient. Call light within reach.
--- NOTE | 2020-12-07 20:09 | NUR ---
PT REFUSING TELEMETRY. CORY THOMPSON CONTACTED AND SHE INSTRUCTED MY TO MAKE NOTE OF IT BUT SHE ID NOT WANT TO D/C IT. CONTACTED TELE TO LET THEM KNOW. WILL CONTINUE TO MONITOR.
--- NOTE | 2020-12-07 21:35 | NUR ---
PT SITTING UP ON EDGE OF BED PREPARRING TO TAKE A SHOWER. PT IS VERY TALKATIVE TODAY, STATING HE IS A LITTLE ANXIOUS ABOUT HIS PLACEMENT FOLLOWING [facility]. DUE TO BEING "MEDICALLY RELEASED" PT IS REFUSING TELE AT THIS TIME. PT REQUESTING ATIVAN REGULARLY. WILL CONTINUE TO MONITOR.
[2020-12-08] VITALS (8 sets, daily range): BP systolic 121–158; BP diastolic 63–93; PULSE 65–83; TEMP 97.4–98.6
--- NOTE | 2020-12-08 05:34 | NUR ---
PT UNABLE TO GET MUCH REST THROUGHOUT THE NIGHT DUE TO US COMING IN HIS ROOM SO OFTEN. PT SEEMS MUCH LESS ANXIOUS THIS MORNING. DENIES ANY NEEDS AT THIS TIME. WILL CONTINUE TO MONITOR.
--- NOTE | 2020-12-08 08:39 | NUR ---
The rep from [facility] contacted and reports that the patient's insurance has denied a SNF stay for the patient.
[2020-12-08] MEDS ORDERED: NICODERM C7 MG/PATCH TD (12:20)
[2020-12-08] MEDS ORDERED: LEXAPRO 10MG10 MG PO (12:21)
[2020-12-08] MEDS ORDERED: THIAMINE 1100 MG/TAB PO (12:21)
[2020-12-08] MEDS ORDERED: DUO-KAPS1 CAP PO (12:22)
--- NOTE | 2020-12-08 13:39 | NUR ---
SHADIA met with the patient to review d/c plan. The patient had just returned to his bed from going to the restroom on his own. The patient states that he would like to and plans on returning back to his apartment upon discharge. SHADIA discussed home health services. The patient was interested in home health and states that he is familiar with [facility]. He chose [facility]. He also informed SHADIA that his PCP is ALEXANDRA Jennings. SHADIA addressed his alcohol use and inpatient/outpatient treatment options. The patient reports that he is not interested in inpatient treatment. He reports that there is an AA meeting spot up the road from his apartment and he plans on trying to go to some of those meetings when he leaves here. The patient reports that he will need a ride home. He states that the number he has for his son, Redd, is not working anymore. SHADIA provided the patient's RN with a taxi voucher. SHADIA contacted and faxed a referral to Yvonne at [facility]. Yvonne reports that they are able to accept the patient for services. The patient is to discharge back home today, 12/08, with home health services for custodial/PT/OT from [facility]. SHADIA notified and faxed d/c orders to Yvonne at [facility]. SHADIA presented and read the IM form outloud to the patient. The patient verbalized understanding and gave SHADIA approval to sign the form on his behalf. SHADIA provided him with a copy. SHADIA attempted to contact the patient's son, Redd. The phone number states that this phone does not accept incoming calls. SHADIA made an APS report. IntakeID#[id number].
--- NOTE | 2020-12-08 16:13 | NUR ---
PT DISCHARGE HOME VIA GO TAXI. D/C INSTRUCTIONS REVEIWED PT.QUESTIONS AND CONCERNS ADDRESSED.
== END 2020-12-08 16:16 | disposition home health service (06) | DRG 897 ==
LOC: COL.ER 10:00 → ICU 13:06 → MEDICAL 12-04 12:48
PROVIDERS: Nurse Practitioner; Physician Assistant; ADMIT Student in an Organized Health Care Education/Training Program
PROC: 02HV33Z Insertion of Infusion Device into Superior Vena Cava, Percutaneous Approach (ICD-10-PCS; principal; 2020-11-29)
PROC: HZ2ZZZZ Detoxification Services for Substance Abuse Treatment (ICD-10-PCS; 2020-11-29)
DX: F10.231 Alcohol dependence with withdrawal delirium (principal); I50.22 Chronic systolic (congestive) heart failure; F32.9 Major depressive disorder, single episode, unspecified; I48.0 Paroxysmal atrial fibrillation; I11.0 Hypertensive heart disease with heart failure; K76.0 Fatty (change of) liver, not elsewhere classified; E83.42 Hypomagnesemia; Y90.1 Blood alcohol level of 20-39 mg/100 ml; M10.9 Gout, unspecified; F41.0 Panic disorder [episodic paroxysmal anxiety]; F20.9 Schizophrenia, unspecified; F17.210 Nicotine dependence, cigarettes, uncomplicated; Z79.82 Long term (current) use of aspirin
CPT/HCPCS: 99223-AI; 99232-AI; 99233-AI; 99239; C1751; J0360; J1630; J1650; J2060; J2405; J3411; J3475; J3480; J7030

== ENCOUNTER 2021-08-23 14:41 | Inpatient (IN) | payer MEDICARE ==
[~2021-08-23] VITALS: Ht 172.7 cm; Wt 101.2 kg
[~2021-08-23 14:41] MED LIST changes: +CATAPRES0.2 MG PO; +LEXAPRO 10MG10 MG PO; +NICODERM C7 MG/PATCH TD
--- NOTE | 2021-08-23 15:44 | NUR ---
SHADIA was contacted by Engineer Rf Deployment to inquire more on why the patient was sent to the ED. Per EMS, the patient's nursing facility wanted the patient to be sent to the ED to be tested for drugs. The patient resides at [facility]. SHADIA contacted Caleb at [facility] to follow up. Caleb reports that the patient moved into their facility on July 29. He then left for alcohol detox and rehab on 08/01 and went to a facility in [place] for this. She states that upon arrival at the rehab facility, the patient tested positive for THC and methamptamines. She states that the patient always denied illicit drug use. Caleb states that the patient was discharged from the rehab facility yesterday, but did not arrive back to [facility] until late yesterday evening. His goddaughter, Ivelisse, transported him back to [facility]. She states that this is the first time they have met Ivelisse. Since then, the patient has had altered mental status and has not been making any sense. She states that they sent the patient to the ED to be evaluated for his AMS and that he has also been complaining of calf pain. They would like him to be tested for drugs though. Caleb states that they are able to accept the patient back upon discharge for the time being. SHADIA updated [employer].
[2021-08-23 16:02] LABS: ALBUMIN 3.4 gm/dL (3.4-4.8); ANION GAP 14 mmol/L (7-16); BASO # 0.1 K/mm3 (0.0-0.2); BASO % 0.6 % (0.0-2.0); BLOOD UREA NITROGEN 34 mg/dL (8-26); CALCIUM 9.1 mg/dL (8.4-10.2); CARBON DIOXIDE 21 mmol/L (23-31); CHLORIDE 105 mmol/L (98-107); CREATININE, serum 3.21 mg/dL (0.72-1.25); EOS # 0.3 K/mm3 (0.0-0.7); EOS % 2.9 % (0.0-4.0); GLUCOSE 108 mg/dL (70-99); GRAN # 7.8 K/mm3 (1.4-6.5); HEMATOCRIT 38.4 % (42.0-52.0); HEMOGLOBIN 13.5 g/dl (13.5-18.0); LYMPH # 1.8 K/mm3 (1.2-3.4); LYMPH % 16.4 % (20.0-51.0); MEAN CELL VOLUME 103 fl (80.0-100.0); MEAN CORPUSCULAR HEMOGLOBIN 36 pg (27-31); MEAN CORPUSCULAR HGB CONC 35 g/dl (33.0-37.0); MONO # 0.8 K/mm3 (0.1-0.6); MONO % 7.5 % (1.7-9.3); PHOSPHOROUS 4.5 mg/dL (2.3-4.7); PLATELET COUNT 214 K/mm3 (130-400); RED BLOOD COUNT 3.73 M/mm3 (4.20-5.60); REDCELL DISTRIBUTION WIDTH-CV 11.9 % (11.5-14.5); SODIUM 140 mmol/L (136-145)
[2021-08-23 16:05] LABS: ALCOHOL(ethanol),MEDICAL < 10 mg/dL (0-10)
[2021-08-23 16:25] LABS: COLLECTION METHOD CLEAN CATCH
[2021-08-23 16:32] LABS: MUCOUS Present (NOT PRESENT); PH 5 (5-8); SQUAMOUS EPITHELIAL None Seen /hpf (0-10); URINE APPEARANCE Hazy (CLEAR/HAZY); URINE BACTERIA Rare /hpf (NONE SEEN); URINE BILIRUBIN Negative (NEGATIVE); URINE BLOOD Negative (NEGATIVE); URINE COLOR Yellow (YELLOW); URINE GLUCOSE Negative (NEGATIVE); URINE KETONE Negative (NEGATIVE); URINE LEUKOCYTE ESTERASE Negative (NEGATIVE); URINE NITRATE Negative (NEGATIVE); URINE PROTEIN(semi-quant) 1+ (NEGATIVE); URINE RBC 0-2 /hpf (0-2); URINE UROBILINOGEN Negative (NEGATIVE)
[2021-08-23 16:44] LABS: TRICYCLIC ANTIDEPRESS URINE POSITIVE
[2021-08-23] MEDS ORDERED: ULTRAM 50MG TAB50 MG PO (18:27)
[2021-08-23] MEDS ORDERED: NEURONTIN400 MG/CAP PO (18:27)
[2021-08-23] MEDS ORDERED: ZOLOFT 100MG100 MG PO (18:28)
[2021-08-23 20:27] VITALS: BP 105/59; PULSE 70; TEMP 97.5
[2021-08-23 22:23] LABS: INR 1.1 (0.8-3.0); PROTHROMBIN TIME 12.4 SECONDS (9.7-12.8)
[2021-08-23 22:25] LABS: PARTIAL THROMBOPLASTIN TIME 33.2 SECONDS (26.0-37.0)
--- NOTE | 2021-08-23 22:25 | NUR ---
PATIENT RECEIVED FROM ER HAVING TREMORS IN ALL EXTREMITIES PATIENT AAOX4, BUT IS IMPULSIVE STATING THAT HE NEEDS TO GET UP TO GET CHEESE AND CRACKERS TO EAT. PATIENT DID STATE THAT HE CAM FROM [facility], CALLED FACILITY STATED THAT PATIENT WAS ADMITTED AT THERE FACILITY YESTERDAY AND TODAY NURSE NOTED PATIENT HAVING TREMORS AND STATED HE LOOKED LIKE HE WAS HAVING WITDRAWLS AD PATIENT TRANSFERRED TO ER. PATIENT ALSO STATED THAT HE WAS IN A REHAB FOR 17 DAYS PRIOR TO GOING TO [facility]. UNAWARE OF FACILITY NAME STATED MAHENDRA WAS TAKING HIM AND SHE WOULD KNOW. PATIENT PROVIDED WRONG NUMBER UNABLE TO CONTACT. PATIENT STATED HIS LAST ALCOHOLIC DRINK WAS ON SATURDAY THE 08/21/21. PATIENT HAS HX OF ETOH AND WAS HOSPITALIZED ON 08/02/21 FROM [facility]. HE IFORMED ME THAT HE DRINKS WHISKEY DAILY.
[2021-08-23 23:20] VITALS: BP 103/79; PULSE 66; TEMP 97.6
[2021-08-24] VITALS (7 sets, daily range): BP systolic 102–158; BP diastolic 50–85; PULSE 55–82; TEMP 97.3–98.9
--- NOTE | 2021-08-24 00:39 | NUR ---
PATIENT IS BEGGINING TO HALUCINATE AND CLIMBING OUT OF BED STATED THAT HE FELT ANXIOUS LIKE HE WAS GOING TO HAVE A PANIC ATTACK. PATIENT WAS ABLE TO EAT SOME DINNER WILL CONTINUE TO MONITOR AND ASSESS CIWA. SAFETY ALARM IN PLACE SIDE RAILS PADDED FOR SIEZURE PRECAUTIONS. WILL CONTINUE TO MONITOR.
--- NOTE | 2021-08-24 01:26 | NUR ---
PATIENT GRABBED WATER OFF OF BEDSIDE AND TIPED IT UPSIDE ON HIMSELF. ASSISTED PATIENT WITH FLUIDS AND DRIED PATIENT OFF AND PROVIDED NEW LINENS. PATIENT CONTINUES TO HALLUCINATE AND CONFUSED WHERE HE IS. PATIENT DOES STILL FOLLOW DIRECTION AND KNOWS HIS NAME. PATIENT CONTINUES TO TRY AND GET OUT OF BED STATING HE NEEDS TO GO DOWN TOWN. SAFETY ALARM ON BED WILL CONTINUE TO REDIRECT AND MONITOR PATIENT.
--- NOTE | 2021-08-24 02:49 | NUR ---
PATIENT IS SLEEPING AT THIS TIME WILL CONTINUE TO MONITOR FOR ANY CHAGNES.
--- NOTE | 2021-08-24 03:55 | NUR ---
PATIENT HAS NOT VOIDED SINCE TRANSFERRING TO ED 475 NOTED ON BLADDER SCAN PATIENT DID RECEIVE A LITER OF FLUIDS IN ED AND ALSO MULTIVITAMIN BAG WELL. TRIED TO GET PATIENT TO VOID EARLIER IN SHIFT AND UNABLE TO DUE TO CONFUSION. NOTIFIED HOSPITALIST IN REGARDS TO DECREASED URINARY OUTPUT.
--- NOTE | 2021-08-24 05:44 | NUR ---
PATIENT TOLERATED ERNANDEZ CATHETER WELL. PATIENT REMAINS CALM AND COMFORTABLE AND SLEEPING AT THIS TIME. WILL CONTINUE TO MONITOR FOR ANY CHANGES. CONTINUES ON CIWA PROTOCOL.
[2021-08-24 06:45] LABS: BASO # 0.1 K/mm3 (0.0-0.2); BASO % 0.9 % (0.0-2.0); EOS # 0.5 K/mm3 (0.0-0.7); EOS % 5.7 % (0.0-4.0); GRAN # 5.1 K/mm3 (1.4-6.5); GRAN % 62.7 % (42.2-75.2); HEMATOCRIT 37.5 % (42.0-52.0); HEMOGLOBIN 12.5 g/dl (13.5-18.0); LYMPH # 1.9 K/mm3 (1.2-3.4); LYMPH % 22.9 % (20.0-51.0); MEAN CORPUSCULAR HEMOGLOBIN 36 pg (27-31); MEAN CORPUSCULAR HGB CONC 33 g/dl (33.0-37.0); MEAN PLATELET VOLUME 9.9 fl (7.4-10.4); MONO # 0.6 K/mm3 (0.1-0.6); MONO % 7.4 % (1.7-9.3); PLATELET COUNT 175 K/mm3 (130-400); RED BLOOD COUNT 3.46 M/mm3 (4.20-5.60); REDCELL DISTRIBUTION WIDTH-CV 11.9 % (11.5-14.5)
[2021-08-24 06:46] LABS: MEAN CELL VOLUME 108 fl (80.0-100.0)
[2021-08-24 07:01] LABS: BILIRUBIN,TOTAL 0.9 mg/dL (0.2-1.2); CALCIUM 8.2 mg/dL (8.4-10.2); CHOLESTEROL RISK RATIO 6.3; CREATININE, serum 2.36 mg/dL (0.72-1.25); MAGNESIUM 1.8 mg/dL (1.6-2.6); POTASSIUM 4.4 mmol/L (3.5-4.5)
[2021-08-24 07:25] LABS: TSH w REFLEX 2.136 uIU/mL (0.350-4.940)
--- NOTE | 2021-08-24 07:25 | NUR ---
PT AWAKE AND ALERT TO PERSON AND YEAR BUT DOES NOT KNOW WHERE HE IS. PT IS HAVING VISIBLE TREMORS IN BOTH HANDS. PT IS VERY CONCERNED ABOUT HIS ERNANDEZ. HE KEEPS PULLING AT IT AND SAYING HE WANTS TO TAKE IT OUT. EXPLAINED TO PT THAT IT NEEDS TO STAY IN AND PULLING AT IT IS ONLY GOING TO MAKE IT HURT WORSE AND BE MORE UNCOMFORTABLE. PT IS VERY AGITATED. MRI IS AT BEDSIDE TO GET PT. PT SCORES A 9 ON SCALE AND WAS GIVEN ATIVAN PER PROTOCOL. PT THEN TAKEN TO MRI.
--- NOTE | 2021-08-24 07:28 | NUR ---
PT OFF THE FLOOR TO MRI
--- NOTE | 2021-08-24 18:39 | NUR ---
PT LAYING SUPINE IN BED ON ROOM AIR. PT IS RESTING QUIETLY. ERNANDEZ IS DRAINING AT BEDSIDE.PT DID WAKE UP AND EAT DINNER. PT WAS HAVING HALLUCINATION "SEEING CHILDREN RUNNING AND PLAYING IN THE HALLWAYS" PT HAND TREMORS ARE VISIBLE. BED ALARM IS ON. CALL LIGHT IS WITHIN REACH.
[2021-08-25] VITALS (9 sets, daily range): BP systolic 91–137; BP diastolic 61–75; PULSE 62–82; TEMP 97.5–98.2
--- NOTE | 2021-08-25 06:30 | NUR ---
PT IS SLEEPING AT THIS TIME. DID NOT WANT TO DISTURB DUE TO ETOH BEHAVIORS.
[2021-08-25 07:01] LABS: BASO % 0.6 % (0.0-2.0); EOS # 0.4 K/mm3 (0.0-0.7); EOS % 5.9 % (0.0-4.0); GRAN % 59.1 % (42.2-75.2); HEMOGLOBIN 12.2 g/dl (13.5-18.0); LYMPH # 1.7 K/mm3 (1.2-3.4); LYMPH % 25.7 % (20.0-51.0); MEAN CORPUSCULAR HEMOGLOBIN 36 pg (27-31); MEAN CORPUSCULAR HGB CONC 35 g/dl (33.0-37.0); MEAN PLATELET VOLUME 10.1 fl (7.4-10.4); MONO # 0.6 K/mm3 (0.1-0.6); MONO % 8.4 % (1.7-9.3); PLATELET COUNT 173 K/mm3 (130-400); RED BLOOD COUNT 3.43 M/mm3 (4.20-5.60); REDCELL DISTRIBUTION WIDTH-CV 11.7 % (11.5-14.5)
[2021-08-25 07:05] LABS: HEMATOCRIT 35.3 % (42.0-52.0); MEAN CELL VOLUME 103 fl (80.0-100.0)
[2021-08-25 07:21] LABS: BILIRUBIN,TOTAL 0.9 mg/dL (0.2-1.2); CALCIUM 8.2 mg/dL (8.4-10.2); CREATININE, serum 0.79 mg/dL (0.72-1.25); MAGNESIUM 1.8 mg/dL (1.6-2.6); POTASSIUM 4.2 mmol/L (3.5-4.5)
--- NOTE | 2021-08-25 10:16 | NUR ---
Initial visit; Patient thanked Home Insurance Agent for looking in on him and listening to his story. Patient offered comfort, prayer and will keep Yenni in her prayers.
--- NOTE | 2021-08-25 16:08 | NUR ---
ERNANDEZ REMOVED PT TOLARATED WELL , URINAL PROVIDED
--- NOTE | 2021-08-25 16:27 | NUR ---
Attempt made to contact [facility] this afternoon to see if they would be able to accept this patient over the weekend. No answer. No voicemail for the phone established.
--- NOTE | 2021-08-25 16:45 | NUR ---
THE PATIENTS VSS ARE STABLE AT THIS TIME. DENIES ACUTE PAIN.
--- NOTE | 2021-08-25 18:34 | NUR ---
PATIENT HAD A CALM DAY,ORIENT X4, ERNANDEZ CATHETER REMOVED URINAL PROVIDED AT BED SIDE , HAD COMPLAIN OF PAIN OF 7/10 TRAMADOL GIVEN,
--- NOTE | 2021-08-25 22:27 | NUR ---
Patient assessed around 2024. Reported pain to legs, had already recieved PRN Ultram. Denie SOB and dyspnea. LS CTA. HRR. BSAx4. Voices no questions, needs, or concerns. Has been using bedside urinal. In bed with call light within reach. Bed alarm on.
[2021-08-26 00:43] VITALS: BP 134/79; PULSE 84; TEMP 97.7
[2021-08-26 04:29] VITALS: BP 131/85; PULSE 88; TEMP 97.6
--- NOTE | 2021-08-26 05:42 | NUR ---
Patient has been in bed with call light within reach. Voices no questions, needs, or concerns at this time. Bed alarm on.
[2021-08-26 06:57] LABS: BASO # 0.1 K/mm3 (0.0-0.2); BASO % 0.7 % (0.0-2.0); EOS # 0.4 K/mm3 (0.0-0.7); EOS % 5.8 % (0.0-4.0); GRAN # 4.4 K/mm3 (1.4-6.5); GRAN % 57.2 % (42.2-75.2); HEMATOCRIT 37.1 % (42.0-52.0); HEMOGLOBIN 12.7 g/dl (13.5-18.0); LYMPH # 2.2 K/mm3 (1.2-3.4); LYMPH % 28.7 % (20.0-51.0); MEAN CELL VOLUME 104 fl (80.0-100.0); MEAN CORPUSCULAR HEMOGLOBIN 36 pg (27-31); MEAN CORPUSCULAR HGB CONC 34 g/dl (33.0-37.0); MEAN PLATELET VOLUME 9.5 fl (7.4-10.4); MONO # 0.5 K/mm3 (0.1-0.6); MONO % 7.1 % (1.7-9.3); PLATELET COUNT 165 K/mm3 (130-400); RED BLOOD COUNT 3.58 M/mm3 (4.20-5.60); REDCELL DISTRIBUTION WIDTH-CV 11.5 % (11.5-14.5)
[2021-08-26 07:17] LABS: CALCIUM 8.4 mg/dL (8.4-10.2); CREATININE, serum 0.79 mg/dL (0.72-1.25); MAGNESIUM 1.6 mg/dL (1.6-2.6); POTASSIUM 4.5 mmol/L (3.5-4.5); TOTAL PROTEIN 6.2 gm/dL (6.2-8.1)
[2021-08-26 08:00] VITALS: BP 137/65; PULSE 77; TEMP 97.6
--- NOTE | 2021-08-26 09:09 | NUR ---
Coating Machine Operator Helper confirms plan of care with Shobha IRWIN and Dr. Posey; patient medically cleared for discharge back to [facility]. Coating Machine Operator Helper contacted [facility] and spoke to Krupa, who informs cannot give a yes or no about acceptance/return, will need to speak to networking administrator and/or nursing staff to confirm. Coating Machine Operator Helper awaiting notification of patient ability to return to placement. *Discharge plan: Return to [facility]*
--- NOTE | 2021-08-26 09:37 | NUR ---
Produce Department Supervisor received contact for Krupa at [facility] who informs patient is able to return; transportation coordinated today for 16:30. Krupa informs patient discharge paperwork can be sent with him, in hand, declined faxed documentation. Shobha IRWIN notified.
[2021-08-26 12:10] VITALS: BP 123/66; PULSE 78; TEMP 97.5
--- NOTE | 2021-08-26 12:19 | NUR ---
Dr. Posey informs Sharebroker that patient, Yenni, is now requesting to discharge to his friend's home. Sharebroker met with patient to discuss. Patient states, he has only really lived at [facility] two days since he was hospitalized for 15 days. He states he got dizzy, and that's why he's returned to the hospital. He reports a history of "causing problems" at his former facility, but he states only some are true and he was "accused" of various issues he didn't do, resulting in 5 write ups and being asked to leave. His evangelical friend Yuesf and his son, assisted him in coordinated his placement at [facility]. He only earns $1400 and his room and board at [facility] is $1300. He needs new jeans. This Sharebroker established rapport, encouraging patient to give [facility] a chance to care for him, explaining his costs likely cover room, meals, healthcare and possibly also medical care/assistance for ADLS/IADLs. He verbalizes understanding, and he is open to save his remaining monthly funds for new jeans or a belt to help his old jeans stay up. He informs belief the staff at [facility] do like him, and he is willing to work on establishing a good relationship with them. He is agreeable to follow the rules, including curfew at midnight. Patient Yenni is ultimately agreeable that he has some mobility/physical limitations that require care and his friend cannot guarantee his care. He states, "Thank you for getting me back there." He verbalizes agreement with plan to return to [facility] today, and his transport at 4:30. Shobha IRIWN updated.
== END 2021-08-26 15:25 | disposition home or self-care (01) | DRG 683 ==
LOC: COL.ER 14:41 → MEDICAL 17:53
PROVIDERS: Emergency Medicine; Physician Assistant; ADMIT Student in an Organized Health Care Education/Training Program
DX: N17.9 Acute kidney failure, unspecified (principal); F10.239 Alcohol dependence with withdrawal, unspecified; I50.22 Chronic systolic (congestive) heart failure; I48.20 Chronic atrial fibrillation, unspecified; I42.9 Cardiomyopathy, unspecified; G89.29 Other chronic pain; M54.32 Sciatica, left side; F17.210 Nicotine dependence, cigarettes, uncomplicated; F41.0 Panic disorder [episodic paroxysmal anxiety]; F20.9 Schizophrenia, unspecified; I11.0 Hypertensive heart disease with heart failure; E87.5 Hyperkalemia; E86.9 Volume depletion, unspecified; G31.2 Degeneration of nervous system due to alcohol; R27.0 Ataxia, unspecified; N28.1 Cyst of kidney, acquired; Y90.0 Blood alcohol level of less than 20 mg/100 ml; Z79.82 Long term (current) use of aspirin
CPT/HCPCS: 99222-AI; 99232-AI; 99233-AI; J1644; J2060; J2270; J3411; J7030; J7120

== ENCOUNTER 2021-09-25 14:18 | Emergency (ER) | payer MEDICARE ==
[~2021-09-25] VITALS: Ht 172.7 cm; Wt 101.8 kg
[~2021-09-25 14:18] MED LIST changes: +NEURONTIN400 MG/CAP PO; +ULTRAM 50MG TAB50 MG PO; +ZOLOFT 100MG100 MG PO
[2021-09-25 14:22] VITALS: TEMP 98.6
[2021-09-25 15:21] LABS: BASO % 0.4 % (0.0-2.0); EOS # 0.3 K/mm3 (0.0-0.7); EOS % 4.8 % (0.0-4.0); GRAN # 3.8 K/mm3 (1.4-6.5); GRAN % 56.2 % (42.2-75.2); HEMATOCRIT 38.5 % (42.0-52.0); HEMOGLOBIN 13.5 g/dl (13.5-18.0); LYMPH % 29.3 % (20.0-51.0); MEAN CELL VOLUME 99 fl (80.0-100.0); MEAN CORPUSCULAR HEMOGLOBIN 35 pg (27-31); MEAN CORPUSCULAR HGB CONC 35 g/dl (33.0-37.0); MEAN PLATELET VOLUME 9.4 fl (7.4-10.4); MONO # 0.6 K/mm3 (0.1-0.6); PLATELET COUNT 159 K/mm3 (130-400); RED BLOOD COUNT 3.89 M/mm3 (4.20-5.60); REDCELL DISTRIBUTION WIDTH-CV 11.9 % (11.5-14.5)
[2021-09-25 15:35] LABS: ALANINE AMINOTRANSFERASE 37 U/L (0-55); ALBUMIN 3.6 gm/dL (3.4-4.8); ALKALINE PHOSPHATASE 107 U/L (40-150); ANION GAP 12 mmol/L (7-16); AST,SGOT 45 U/L (5-34); BILIRUBIN,TOTAL 1.2 mg/dL (0.2-1.2); BLOOD UREA NITROGEN 16 mg/dL (8-26); CARBON DIOXIDE 23 mmol/L (23-31); CHLORIDE 107 mmol/L (98-107); CREATININE, serum 0.96 mg/dL (0.72-1.25); GLUCOSE 88 mg/dL (70-99); POTASSIUM 4.2 mmol/L (3.5-4.5); SODIUM 142 mmol/L (136-145); TOTAL PROTEIN 7.2 gm/dL (6.2-8.1)
[2021-09-25 15:42] LABS: TROPONIN-I < 0.010 ng/mL (0.00-0.033)
[2021-09-25 16:12] VITALS: BP 145/102; PULSE 64
== END 2021-09-25 17:18 | disposition home or self-care (01) ==
LOC: COL.ER 14:18
PROVIDERS: Personal Emergency Response Attendant
DX: R07.9 Chest pain, unspecified (principal); R42 Dizziness and giddiness; F17.210 Nicotine dependence, cigarettes, uncomplicated

== ENCOUNTER 2021-10-30 13:30 | Emergency (ER) | payer MEDICARE ==
[~2021-10-30] VITALS: Ht 172.7 cm; Wt 101.8 kg
[2021-10-30 13:33] VITALS: TEMP 97.8
[2021-10-30 14:35] LABS: BASO % 0.6 % (0.0-2.0); EOS # 0.4 K/mm3 (0.0-0.7); EOS % 5.2 % (0.0-4.0); GRAN # 4.2 K/mm3 (1.4-6.5); GRAN % 59.8 % (42.2-75.2); HEMATOCRIT 39.8 % (42.0-52.0); HEMOGLOBIN 14.1 g/dl (13.5-18.0); LYMPH % 27.9 % (20.0-51.0); MEAN CELL VOLUME 94 fl (80.0-100.0); MEAN CORPUSCULAR HEMOGLOBIN 33 pg (27-31); MEAN CORPUSCULAR HGB CONC 35 g/dl (33.0-37.0); MEAN PLATELET VOLUME 9.7 fl (7.4-10.4); MONO # 0.4 K/mm3 (0.1-0.6); MONO % 6.2 % (1.7-9.3); PLATELET COUNT 149 K/mm3 (130-400); RED BLOOD COUNT 4.23 M/mm3 (4.20-5.60); REDCELL DISTRIBUTION WIDTH-CV 12.1 % (11.5-14.5)
[2021-10-30 14:54] LABS: ALANINE AMINOTRANSFERASE 23 U/L (0-55); ALBUMIN 3.6 gm/dL (3.4-4.8); ALKALINE PHOSPHATASE 90 U/L (40-150); ANION GAP 11 mmol/L (7-16); AST,SGOT 28 U/L (5-34); BLOOD UREA NITROGEN 12 mg/dL (8-26); CALCIUM 9.1 mg/dL (8.4-10.2); CARBON DIOXIDE 23 mmol/L (23-31); CHLORIDE 107 mmol/L (98-107); CREATININE, serum 0.89 mg/dL (0.72-1.25); GLUCOSE 121 mg/dL (70-99); POTASSIUM 4.1 mmol/L (3.5-4.5); SODIUM 141 mmol/L (136-145)
[2021-10-30 15:03] LABS: ACETAMINOPHEN < 1.0 ug/mL (10-30); ALCOHOL(ethanol),MEDICAL < 10 mg/dL (0-10); SALICYLATE < 5.0 mg/dL (15.0-30.0)
[2021-10-30 15:30] LABS: COLLECTION METHOD CLEAN CATCH
[2021-10-30 15:37] LABS: PH 6 (5-8); SQUAMOUS EPITHELIAL None Seen /hpf (0-10); URINE APPEARANCE Clear (CLEAR/HAZY); URINE BACTERIA None Seen /hpf (NONE SEEN); URINE BLOOD Negative (NEGATIVE); URINE COLOR Yellow (YELLOW); URINE GLUCOSE Negative (NEGATIVE); URINE KETONE Negative (NEGATIVE); URINE NITRATE Negative (NEGATIVE); URINE PROTEIN(semi-quant) Negative (NEGATIVE); URINE RBC 0-2 /hpf (0-2)
[2021-10-30 15:46] LABS: TRICYCLIC ANTIDEPRESS URINE POSITIVE
[2021-10-30 17:45] VITALS: BP 172/94; PULSE 62
== END 2021-10-30 22:35 | disposition home or self-care (01) ==
LOC: COL.ER 13:30
PROVIDERS: Emergency Medicine
DX: R44.1 Visual hallucinations (principal); M54.50 Low back pain, unspecified; Z28.310 Unvaccinated for COVID-19; Z20.822 Contact with and (suspected) exposure to COVID-19

== ENCOUNTER 2021-10-31 11:19 | Emergency (ER) | payer MEDICARE ==
[~2021-10-31] VITALS: Ht 172.7 cm; Wt 101.8 kg
[2021-10-31 11:26] VITALS: TEMP 98
[2021-10-31 13:07] LABS: BASO % 0.6 % (0.0-2.0); EOS # 0.3 K/mm3 (0.0-0.7); EOS % 4.6 % (0.0-4.0); GRAN # 4.1 K/mm3 (1.4-6.5); GRAN % 61.4 % (42.2-75.2); HEMATOCRIT 39.6 % (42.0-52.0); HEMOGLOBIN 13.9 g/dl (13.5-18.0); LYMPH # 1.7 K/mm3 (1.2-3.4); LYMPH % 25.7 % (20.0-51.0); MEAN CELL VOLUME 95 fl (80.0-100.0); MEAN CORPUSCULAR HEMOGLOBIN 33 pg (27-31); MEAN CORPUSCULAR HGB CONC 35 g/dl (33.0-37.0); MEAN PLATELET VOLUME 9.8 fl (7.4-10.4); MONO # 0.5 K/mm3 (0.1-0.6); MONO % 7.4 % (1.7-9.3); PLATELET COUNT 152 K/mm3 (130-400); RED BLOOD COUNT 4.18 M/mm3 (4.20-5.60); REDCELL DISTRIBUTION WIDTH-CV 12.1 % (11.5-14.5)
[2021-10-31 13:20] LABS: COLLECTION METHOD CLEAN CATCH
[2021-10-31 13:24] LABS: ALANINE AMINOTRANSFERASE 22 U/L (0-55); ALBUMIN 3.5 gm/dL (3.4-4.8); ALKALINE PHOSPHATASE 85 U/L (40-150); ANION GAP 10 mmol/L (7-16); AST,SGOT 27 U/L (5-34); BLOOD UREA NITROGEN 13 mg/dL (8-26); CALCIUM 9.1 mg/dL (8.4-10.2); CARBON DIOXIDE 26 mmol/L (23-31); CHLORIDE 106 mmol/L (98-107); CREATININE, serum 0.81 mg/dL (0.72-1.25); GLUCOSE 89 mg/dL (70-99); POTASSIUM 4.8 mmol/L (3.5-4.5); SODIUM 142 mmol/L (136-145); TOTAL PROTEIN 6.6 gm/dL (6.2-8.1)
[2021-10-31 13:29] LABS: MUCOUS Present (NOT PRESENT); PH 6 (5-8); SQUAMOUS EPITHELIAL None Seen /hpf (0-10); URINE APPEARANCE Clear (CLEAR/HAZY); URINE BACTERIA None Seen /hpf (NONE SEEN); URINE BLOOD Negative (NEGATIVE); URINE COLOR Yellow (YELLOW); URINE GLUCOSE Negative (NEGATIVE); URINE KETONE Negative (NEGATIVE); URINE NITRATE Negative (NEGATIVE); URINE PROTEIN(semi-quant) Negative (NEGATIVE); URINE RBC 0-2 /hpf (0-2)
[2021-10-31 13:30] LABS: ALCOHOL(ethanol),MEDICAL < 10 mg/dL (0-10)
[2021-10-31 13:43] LABS: TRICYCLIC ANTIDEPRESS URINE POSITIVE
[2021-10-31 22:03] VITALS: BP 156/94; PULSE 63
== END 2021-10-31 22:07 ==
LOC: COL.ER 11:19
PROVIDERS: Family Medicine
DX: F20.9 Schizophrenia, unspecified (principal); Z20.822 Contact with and (suspected) exposure to COVID-19; Z87.891 Personal history of nicotine dependence

== ENCOUNTER 2021-12-02 18:43 | Observation (INO) | payer MEDICARE, MEDICAID ==
[~2021-12-02] VITALS: Ht 172.7 cm; Wt 123.3 kg
[2021-12-02 19:30] LABS: BASO % 0.3 % (0.0-2.0); EOS # 0.2 K/mm3 (0.0-0.7); EOS % 1.5 % (0.0-4.0); GRAN # 9.2 K/mm3 (1.4-6.5); GRAN % 76.2 % (42.2-75.2); HEMOGLOBIN 12.8 g/dl (13.5-18.0); LYMPH # 1.9 K/mm3 (1.2-3.4); LYMPH % 15.8 % (20.0-51.0); MEAN CELL VOLUME 93 fl (80.0-100.0); MEAN CORPUSCULAR HEMOGLOBIN 32 pg (27-31); MEAN CORPUSCULAR HGB CONC 35 g/dl (33.0-37.0); MEAN PLATELET VOLUME 9.5 fl (7.4-10.4); MONO # 0.7 K/mm3 (0.1-0.6); MONO % 5.8 % (1.7-9.3); PLATELET COUNT 125 K/mm3 (130-400); RED BLOOD COUNT 3.96 M/mm3 (4.20-5.60); REDCELL DISTRIBUTION WIDTH-CV 12.8 % (11.5-14.5)
[2021-12-02 19:34] LABS: HEMATOCRIT 36.7 % (42.0-52.0)
[2021-12-02 19:48] LABS: ALBUMIN 3.5 gm/dL (3.4-4.8); CALCIUM 8.7 mg/dL (8.4-10.2); CREATININE, serum 1.08 mg/dL (0.72-1.25); POTASSIUM 4.2 mmol/L (3.5-4.5); TOTAL PROTEIN 6.5 gm/dL (6.2-8.1)
[2021-12-02 19:55] LABS: TROPONIN-I 0.015 ng/mL (0.00-0.033)
[2021-12-02 21:52] LABS: COLLECTION METHOD CLEAN CATCH
[2021-12-02 21:57] LABS: URINE APPEARANCE Clear (CLEAR/HAZY); URINE BLOOD Negative (NEGATIVE); URINE COLOR Yellow (YELLOW); URINE GLUCOSE Negative (NEGATIVE); URINE KETONE Negative (NEGATIVE); URINE NITRATE Negative (NEGATIVE); URINE PROTEIN(semi-quant) Negative (NEGATIVE); URINE UROBILINOGEN 0.2 E.U/dL (0.2-1.0)
[2021-12-02 22:03] LABS: SQUAMOUS EPITHELIAL 0-2 /hpf (0-10); URINE BACTERIA None Seen /hpf (NONE SEEN); URINE RBC 0-2 /hpf (0-2)
[2021-12-02] MEDS ORDERED: ATIVAN 1MG T1 MG/TAB PO (22:19)
[2021-12-02] MEDS ORDERED: CAMPRAL333 M1 PO (22:19)
[2021-12-02] MEDS ORDERED: DULCOLAX STOOL100 MG PO (22:19)
[2021-12-02] MEDS ORDERED: SINEQUAN 5050 MG/CAP PO (22:20)
[2021-12-02] MEDS ORDERED: VISTARIL 2525 MG/CAP PO (22:23)
[2021-12-02] MEDS ORDERED: MOBIC15 MG PO (22:25)
[2021-12-02] MEDS ORDERED: MINIPRESS2 MG PO (22:26)
[2021-12-02] MEDS ORDERED: RISPERDAL2 MG PO (22:26)
[2021-12-02] MEDS ORDERED: SEROQUEL 1100 MG/TAB PO (22:28)
[2021-12-02] MEDS ORDERED: DESYREL 100MG100 MG PO (22:29)
[2021-12-02 22:39] VITALS: BP 160/96; PULSE 67; TEMP 97.8
[2021-12-03] MEDS ORDERED: TOPROL XL100 MG PO (01:06)
[2021-12-03] MEDS ORDERED: SEROQUEL50 MG PO (01:06)
[2021-12-03] MEDS ORDERED: PRINIVIL20 MG PO (01:09)
[2021-12-03 04:21] VITALS: BP 123/64; PULSE 71; TEMP 98.7
[2021-12-03 06:25] LABS: BASO % 0.3 % (0.0-2.0); EOS # 0.3 K/mm3 (0.0-0.7); EOS % 2.7 % (0.0-4.0); GRAN # 6.2 K/mm3 (1.4-6.5); GRAN % 66.4 % (42.2-75.2); HEMOGLOBIN 12.2 g/dl (13.5-18.0); LYMPH # 2.1 K/mm3 (1.2-3.4); LYMPH % 22.7 % (20.0-51.0); MEAN CELL VOLUME 93 fl (80.0-100.0); MEAN CORPUSCULAR HEMOGLOBIN 32 pg (27-31); MEAN CORPUSCULAR HGB CONC 35 g/dl (33.0-37.0); MEAN PLATELET VOLUME 9.9 fl (7.4-10.4); MONO # 0.7 K/mm3 (0.1-0.6); MONO % 7.4 % (1.7-9.3); PLATELET COUNT 135 K/mm3 (130-400); RED BLOOD COUNT 3.76 M/mm3 (4.20-5.60); REDCELL DISTRIBUTION WIDTH-CV 12.9 % (11.5-14.5)
[2021-12-03 06:29] LABS: HEMATOCRIT 34.9 % (42.0-52.0)
[2021-12-03 06:49] LABS: CALCIUM 8.5 mg/dL (8.4-10.2); CREATININE, serum 1.07 mg/dL (0.72-1.25); MAGNESIUM 1.8 mg/dL (1.6-2.6); POTASSIUM 3.8 mmol/L (3.5-4.5)
--- NOTE | 2021-12-03 07:25 | NUR ---
PT SLEEPING DURING BEDSIDE REPORT.
[2021-12-03 07:52] VITALS: BP 130/69; PULSE 70; TEMP 98.6
[2021-12-03 11:32] VITALS: BP 130/73; PULSE 69; TEMP 98.3
--- NOTE | 2021-12-03 15:07 | NUR ---
Dr. Guerrero and this Gas Leak Inspector Helper discuss plan of care/discharge plan: Patient is admitted under observation status from [facility], with concern for his safety to return due to increase in weakness and multiple falls over the past two days. ER notes indicate patient unable to return to home and SNF placement recommended. Gas Leak Inspector Helper notes patient has [employer] and Medicare [employer] Choice PPO healthcare coverage, will require [facility] authorization prior to placement for SNF. Gas Leak Inspector Helper contacts Ping Barry LMSW, Case Thermodynamics Engineer for consultation. Social Work to [facility] for requested [facility]. This Gas Leak Inspector Helper to follow up with [facility]ER for further information regarding patient needs and payor source re: private pay. Patient would require Medicaid application if LTC placement is recommended. Dr. Guerrero updated. Clinicals faxed to [facility] for authorization.
--- NOTE | 2021-12-03 15:57 | NUR ---
Audit Director faxed clinicals to [facility] for authorization, attempted phone contact and placed on hold. Audit Director contacted [facility] SCHRADER for further information regarding patient needs, phone continues to ring and no answer. *SNF Placement pending [facility] authorization*
[2021-12-03 16:00] VITALS: BP 134/78; PULSE 66; TEMP 98.5
--- NOTE | 2021-12-03 18:16 | NUR ---
pt had a calm day, vss orient and alert x4, complaints of generalize body pains raised pt given prescribed prn medications, other due medication given all meds well tolarated no adverse reaction noted.denies all other complaints.
[2021-12-03 19:49] VITALS: BP 106/84; PULSE 69; TEMP 97.9
[2021-12-03 22:05] VITALS: BP 117/93; PULSE 72; TEMP 98.4
[2021-12-04] VITALS (10 sets, daily range): BP systolic 125–151; BP diastolic 68–745; PULSE 65–71; TEMP 97.3–98.5
--- NOTE | 2021-12-04 05:25 | NUR ---
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 PT RESTING IN BED WATCHING TV. PT COMPLAINED OF GENERALIZED PAIN. PT STATED THAT THE PAIN MEDICATIONS I WAS GIVING HIM DIDN'T WORK. UPON RECHECK, AFTER GIVING HIM THE PAIN MEDICATIONS, HE STATED THE PAIN MEDICATIONS WORKED GOOD. PT DENIED CHEST PAIN, PALPITATIONS, SOB, N,V,D OR DIZZINESS. AROUND 0500HRS, WHEN THE AID WAS HELPING HIM USE THE URINAL, SHE NOTICED REDNESS TO HIS GROIN AREA AND CALLED ME. UPON INSPECTION, PT HAD REDNESS TO HIS GROIN FOLDS THAT LOOKED LIKE MAYBE YEAST. WHEN ASKED ABOUT IT, PT STATED HE'S BEEN ITCHY DOWN THERE FOR ABOUT 3 DAYS. SHIFT ASSESSMENT UPDATED. PT SCORED MOSTLY 0'S WITH AN OCCASIONAL 1 OR 2 ON HIS CIWA. PT ASKED FOR AND GIVEN ATIVAN ONCE TONIGHT. PT EXPRESSED NO ADDITIONAL NEEDS AT THIS TIME. CALL LIGHT WITHIN REACH.
--- NOTE | 2021-12-04 09:10 | NUR ---
Pt assessment complete. Pt is laying in bed upon entry, he is A/O x4. His breathing is even and unlabored on RA. Pt denies SOB. Pain to L leg 11/08, PRN pain medication administered. Pt denies any N/V. Breakfast set up for him. SCD's in place. Offered assistance to recliner, pt states maybe later. No further needs. Call light within reach.
[2021-12-05] VITALS (7 sets, daily range): BP systolic 148–193; BP diastolic 90–101; PULSE 64–69; TEMP 97.5–98.3
--- NOTE | 2021-12-05 05:17 | NUR ---
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 PT RESTING IN BED DOZING OFF WHILE WATCHING TV. PT CONTINUES TO COMPLAIN OF GENERALIZED PAIN, HE RATES AN EIGHT. PT GIVEN HIS EVENING MEDS, PLUS ULTRAM. PAIN MEDICATIONS WERE EFFECTIVE PER PT. PT ALSO REQUESTED AND GIVEN ATIVAN FOR ANXIETY. PT DENIED CHEST PAIN, PALPITATIONS, N,V,D OR DIZZINESS. PT DENIED SOB, BUT HIS O2 SATS DROPPED INTO THE UPPER 80'S AND RT PLACED PT ON O2 VIA NC. WILL CONTINUE TO MONITOR. PT ALSO COMPLAINED OF BEING HOT. TEMP IN ROOM LOWERED TO THE LOWEST IT COULD GO, PT'S ORAL TEMP REMAINED IN THE 97 DEGREE RANGE. WILL ALSO CONTINUE TO MONITOR. PT EXPRESSED NO ADDITIONAL NEEDS AT THIS TIME. CALL LIGHT WITHIN REACH.
--- NOTE | 2021-12-05 13:15 | NUR ---
Hanane: Hindu Situation: data conversion developer stopped by room on rounds Background: Pt was resting and content Assessment: No needs right now. Pt appreciated the visit Recommendation: data conversion developer will follow up as needed
--- NOTE | 2021-12-05 15:58 | NUR ---
Wireless Sales Expert spoke with Hospitalist who advised patient is ready for discharge. SHADIA collaborated with PT who advised during PT/OT co-treat today it was determined it would not be recommended patient return to [facility] today. SHADIA faxed referrals to [facility] and [facility] for SNF. SHADIA did not send SNF referral to [facility] as they are not in network with patient's insurance, Humana. SHADIA spoke with Gretta at [facility] who advised they have attempted Medicaid for patient before but there have been issues, so patient currently has a large bill to [place], however [facility] would accept him back and try to work through these issues. SHADIA advised recommendation is for SNF at this time but if placement cannot be secured, plan will be to return to [place]. SHADIA faxed updates to Gretta to provide to [place]. [facility] declined referral. SHADIA also gave referral to [facility]. SHADIA emailed financial team and requested the check KMAP to determine if patient has Medicaid or not. SHADIA faxed clinical to [facility] and received a call back requesting facility. SHADIA advised she does not have accepting facility yet but will provide update DELB[facility]. Discharge Plan: SNF, pending insurance auth and placement
--- NOTE | 2021-12-06 00:45 | NUR ---
SHIFT ASSESSMENT COMPLETED AT 09:15 PM. THE PATIENT WAS ALERT AND ORIENTED AT THIS TIME. DISCHARGE EDUCATION PROVIDED TO PATIENT AND A FRIEND. ALL QUESTIONS AND CONCERNS WERE ADDRESSED. THE PATIENT DENIED OTHER NEEDS AT THIS TIME. CALL LIGHT WITHIN REACH WELL OTHER PERSONAL BELONGINGS. BED IN LOW POSITION.
[2021-12-06 03:53] VITALS: BP 163/92; PULSE 68
[2021-12-06 07:08] VITALS: BP 154/79; PULSE 67; TEMP 97.8
[2021-12-06 12:09] VITALS: BP 172/94; PULSE 65; TEMP 98.1
--- NOTE | 2021-12-06 13:48 | NUR ---
DISCHARGE DISCUSSED WITH PT AND NURSE FROM [facility] AT THE BEDSIDE, ALL QUESTIONS AND CONCERNS WERE ADDRESSED, PT IS BEING WHEEL OUT TO [facility] TRANSPORT VEHICLE, PT TOOK ALL HIS BELONGINGS WITH HIM
--- NOTE | 2021-12-06 14:13 | NUR ---
Regional Sales Director collaborated with PT who advised patient had improved today and that he wanted to return to Assisted Living. [facility] declined referral and [facility] has no bed availability today. SW also gave referrals to both [facility] and [facility]. Neither can take. SHADIA met with patient who advised he wants to return to [place] today and is agreeable to Home Health. SW provided Medicare.gov list of HH agencies and patient selected [facility]. SHADIA contacted Isreal at [facility] and faxed referral with orders. SHADIA collaborated with Gretta at [facility] who arranged for transportation back to [place]. SW faxed discharge orders to Gretta. Discharge Plan: [facility] with [facility]
== END 2021-12-06 13:50 | disposition home or self-care (01) ==
LOC: COL.ER 18:43 → MEDICAL 22:02
PROVIDERS: Family Medicine; Student in an Organized Health Care Education/Training Program; ADMIT Student in an Organized Health Care Education/Training Program
DX: R53.1 Weakness (principal); R29.6 Repeated falls; D72.829 Elevated white blood cell count, unspecified; D69.6 Thrombocytopenia, unspecified; G89.29 Other chronic pain; M54.40 Lumbago with sciatica, unspecified side; I10 Essential (primary) hypertension; F41.9 Anxiety disorder, unspecified; G20 Parkinson's disease; G47.00 Insomnia, unspecified; F10.10 Alcohol abuse, uncomplicated; I48.91 Unspecified atrial fibrillation; K76.0 Fatty (change of) liver, not elsewhere classified; F41.0 Panic disorder [episodic paroxysmal anxiety]; Z87.891 Personal history of nicotine dependence; Z79.899 Other long term (current) drug therapy
CPT/HCPCS: G0378; J0360; J1940

== ENCOUNTER 2022-04-30 15:25 | Emergency (ER) | payer MEDICARE, MEDICAID ==
[~2022-04-30] VITALS: Ht 172.7 cm; Wt 101.8 kg
[~2022-04-30 15:25] MED LIST changes: +ASPIRIN E.C. 8181 MG PO; +CAMPRAL333 M1 PO; +DESYREL 100MG100 MG PO; +DULCOLAX STOOL100 MG PO; +LIPITOR 40MG TA40 MG PO; +MINIPRESS2 MG PO; +MOBIC15 MG PO; +NORVASC 10MG10 MG PO; +RISPERDAL2 MG PO; +SEROQUEL 1100 MG/TAB PO; +SEROQUEL50 MG PO; +SINEQUAN 5050 MG/CAP PO; +TOPROL XL100 MG PO; +VISTARIL 2525 MG/CAP PO
[2022-04-30 15:49] VITALS: TEMP 97.1
[2022-04-30 16:27] LABS: COLLECTION METHOD CLEAN CATCH
[2022-04-30 16:27] LABS: BASO % 0.3 % (0.0-2.0); EOS # 0.3 K/mm3 (0.0-0.7); EOS % 3.6 % (0.0-4.0); GRAN # 5.7 K/mm3 (1.4-6.5); GRAN % 66.5 % (42.2-75.2); HEMATOCRIT 42.6 % (42.0-52.0); HEMOGLOBIN 14.9 g/dl (13.5-18.0); LYMPH # 1.9 K/mm3 (1.2-3.4); LYMPH % 21.7 % (20.0-51.0); MEAN CELL VOLUME 91 fl (80.0-100.0); MEAN CORPUSCULAR HEMOGLOBIN 32 pg (27-31); MEAN CORPUSCULAR HGB CONC 35 g/dl (33.0-37.0); MEAN PLATELET VOLUME 9.4 fl (7.4-10.4); MONO # 0.7 K/mm3 (0.1-0.6); MONO % 7.7 % (1.7-9.3); PLATELET COUNT 190 K/mm3 (130-400); RED BLOOD COUNT 4.66 M/mm3 (4.20-5.60); REDCELL DISTRIBUTION WIDTH-CV 12.5 % (11.5-14.5)
[2022-04-30 16:32] LABS: URINE APPEARANCE Clear (CLEAR/HAZY); URINE BLOOD Negative (NEGATIVE); URINE COLOR Yellow (YELLOW); URINE GLUCOSE Negative (NEGATIVE); URINE KETONE Negative (NEGATIVE); URINE NITRATE Negative (NEGATIVE); URINE PROTEIN(semi-quant) Negative (NEGATIVE)
[2022-04-30 16:39] LABS: MUCOUS Present (NOT PRESENT); SQUAMOUS EPITHELIAL None Seen /hpf (0-10); URINE BACTERIA None Seen /hpf (NONE SEEN); URINE RBC None Seen /hpf (0-2)
[2022-04-30 16:46] LABS: TRICYCLIC ANTIDEPRESS URINE POSITIVE
[2022-04-30 16:46] LABS: ALANINE AMINOTRANSFERASE 22 U/L (0-55); ALKALINE PHOSPHATASE 128 U/L (40-150); ANION GAP 11 mmol/L (7-16); AST,SGOT 25 U/L (5-34); BILIRUBIN,TOTAL 1.3 mg/dL (0.2-1.2); BLOOD UREA NITROGEN 19 mg/dL (8-26); CALCIUM 9.7 mg/dL (8.4-10.2); CARBON DIOXIDE 24 mmol/L (23-31); CHLORIDE 105 mmol/L (98-107); CREATININE, serum 1.06 mg/dL (0.72-1.25); GLUCOSE 95 mg/dL (70-99); POTASSIUM 4.4 mmol/L (3.5-4.5); SODIUM 140 mmol/L (136-145)
[2022-04-30 16:50] LABS: ALCOHOL(ethanol),MEDICAL < 10 mg/dL (0-10)
[2022-04-30 18:42] VITALS: BP 134/86; PULSE 75
== END 2022-04-30 18:58 | disposition home or self-care (01) ==
LOC: COL.ER 15:25
PROVIDERS: Physician Assistant
DX: R44.3 Hallucinations, unspecified (principal); F17.210 Nicotine dependence, cigarettes, uncomplicated; Z28.310 Unvaccinated for COVID-19

== ENCOUNTER → 2022-05-05 | Outpatient (REF) | payer MEDICARE, MEDICAID ==
[~2022-05-05] MED LIST changes: +DOXYCYCLINE HY100 MG PO; +OMNICEF 300MG300 MG PO
[2022-05-05 12:56] LABS: BASO % 0.5 % (0.0-2.0); EOS # 0.2 K/mm3 (0.0-0.7); EOS % 2.7 % (0.0-4.0); GRAN # 5.2 K/mm3 (1.4-6.5); GRAN % 67.7 % (42.2-75.2); HEMATOCRIT 37.7 % (42.0-52.0); HEMOGLOBIN 13.8 g/dl (13.5-18.0); LYMPH # 1.8 K/mm3 (1.2-3.4); LYMPH % 22.6 % (20.0-51.0); MEAN CELL VOLUME 88 fl (80.0-100.0); MEAN CORPUSCULAR HEMOGLOBIN 32 pg (27-31); MEAN CORPUSCULAR HGB CONC 37 g/dl (33.0-37.0); MONO # 0.5 K/mm3 (0.1-0.6); MONO % 6.1 % (1.7-9.3); PLATELET COUNT 169 K/mm3 (130-400); REDCELL DISTRIBUTION WIDTH-CV 12.3 % (11.5-14.5)
[2022-05-05 13:12] LABS: ALBUMIN 3.5 gm/dL (3.4-4.8); CHOLESTEROL RISK RATIO 3.8; CREATININE, serum 0.83 mg/dL (0.72-1.25); POTASSIUM 4.4 mmol/L (3.5-4.5); TOTAL PROTEIN 6.6 gm/dL (6.2-8.1)
[2022-05-05 13:33] LABS: THYROID STIMULATING HORMONE 4.931 uIU/mL (0.350-4.940)
== END ==
LOC: ZCOL.LAB 12:39
PROVIDERS: Family Medicine
DX: E78.5 Hyperlipidemia, unspecified (principal); F20.9 Schizophrenia, unspecified; M51.36 Other intervertebral disc degeneration, lumbar region

== ENCOUNTER → 2022-05-14 | Outpatient (REF) | payer MEDICARE, MEDICAID ==
[~2022-05-14] MED LIST changes: -DOXYCYCLINE HY100 MG PO; -OMNICEF 300MG300 MG PO
[2022-05-14 13:23] LABS: BASO % 0.6 % (0.0-2.0); EOS # 0.2 K/mm3 (0.0-0.7); GRAN # 4.5 K/mm3 (1.4-6.5); GRAN % 63.2 % (42.2-75.2); HEMATOCRIT 38.7 % (42.0-52.0); HEMOGLOBIN 13.5 g/dl (13.5-18.0); LYMPH # 1.8 K/mm3 (1.2-3.4); LYMPH % 25.7 % (20.0-51.0); MEAN CELL VOLUME 91 fl (80.0-100.0); MEAN CORPUSCULAR HEMOGLOBIN 32 pg (27-31); MEAN CORPUSCULAR HGB CONC 35 g/dl (33.0-37.0); MEAN PLATELET VOLUME 9.9 fl (7.4-10.4); MONO # 0.5 K/mm3 (0.1-0.6); MONO % 7.2 % (1.7-9.3); PLATELET COUNT 160 K/mm3 (130-400); RED BLOOD COUNT 4.24 M/mm3 (4.20-5.60); REDCELL DISTRIBUTION WIDTH-CV 12.5 % (11.5-14.5)
== END ==
LOC: ZCOL.LAB 12:51
PROVIDERS: Family Medicine
DX: I10 Essential (primary) hypertension (principal)

== ENCOUNTER → 2022-05-30 | Outpatient (REF) | payer MEDICARE, MEDICAID ==
[~2022-05-30] MED LIST changes: +DOXYCYCLINE HY100 MG PO; +OMNICEF 300MG300 MG PO
[2022-05-30 15:51] LABS: BASO # 0.1 K/mm3 (0.0-0.2); BASO % 0.8 % (0.0-2.0); EOS # 0.4 K/mm3 (0.0-0.7); EOS % 3.7 % (0.0-4.0); GRAN # 6.2 K/mm3 (1.4-6.5); GRAN % 58.8 % (42.2-75.2); HEMATOCRIT 44.1 % (42.0-52.0); LYMPH # 3.3 K/mm3 (1.2-3.4); LYMPH % 31.1 % (20.0-51.0); MEAN CELL VOLUME 93 fl (80.0-100.0); MEAN CORPUSCULAR HEMOGLOBIN 32 pg (27-31); MEAN CORPUSCULAR HGB CONC 34 g/dl (33.0-37.0); MEAN PLATELET VOLUME 9.4 fl (7.4-10.4); MONO # 0.5 K/mm3 (0.1-0.6); MONO % 4.9 % (1.7-9.3); PLATELET COUNT 249 K/mm3 (130-400); RED BLOOD COUNT 4.73 M/mm3 (4.20-5.60); REDCELL DISTRIBUTION WIDTH-CV 12.9 % (11.5-14.5)
== END ==
LOC: ZCOL.LAB 15:21
PROVIDERS: Family Medicine
DX: I10 Essential (primary) hypertension (principal)

== ENCOUNTER → 2022-06-04 | Outpatient (REF) | payer MEDICARE, MEDICAID ==
[2022-06-04 14:50] LABS: BASO # 0.1 K/mm3 (0.0-0.2); BASO % 0.5 % (0.0-2.0); EOS # 0.2 K/mm3 (0.0-0.7); EOS % 2.6 % (0.0-4.0); GRAN % 64.2 % (42.2-75.2); HEMATOCRIT 42.5 % (42.0-52.0); HEMOGLOBIN 14.6 g/dl (13.5-18.0); LYMPH # 2.5 K/mm3 (1.2-3.4); MEAN CELL VOLUME 92 fl (80.0-100.0); MEAN CORPUSCULAR HEMOGLOBIN 32 pg (27-31); MEAN CORPUSCULAR HGB CONC 34 g/dl (33.0-37.0); MEAN PLATELET VOLUME 9.3 fl (7.4-10.4); MONO # 0.5 K/mm3 (0.1-0.6); MONO % 5.3 % (1.7-9.3); PLATELET COUNT 217 K/mm3 (130-400); RED BLOOD COUNT 4.64 M/mm3 (4.20-5.60); REDCELL DISTRIBUTION WIDTH-CV 12.8 % (11.5-14.5)
== END ==
LOC: ZCOL.LAB 14:30
PROVIDERS: Family Medicine
DX: I10 Essential (primary) hypertension (principal)

== ENCOUNTER → 2022-07-01 | Outpatient (CLI) | payer MEDICARE, MEDICAID ==
[2022-07-01 21:21] LABS: BASO # 0.1 K/mm3 (0.0-0.2); BASO % 0.6 % (0.0-2.0); EOS # 0.3 K/mm3 (0.0-0.7); EOS % 3.8 % (0.0-4.0); GRAN # 4.7 K/mm3 (1.4-6.5); GRAN % 60.9 % (42.2-75.2); HEMATOCRIT 43.1 % (42.0-52.0); HEMOGLOBIN 14.2 g/dl (13.5-18.0); LYMPH # 2.1 K/mm3 (1.2-3.4); MEAN CELL VOLUME 96 fl (80.0-100.0); MEAN CORPUSCULAR HEMOGLOBIN 32 pg (27-31); MEAN CORPUSCULAR HGB CONC 33 g/dl (33.0-37.0); MEAN PLATELET VOLUME 10.5 fl (7.4-10.4); MONO # 0.5 K/mm3 (0.1-0.6); MONO % 6.8 % (1.7-9.3); PLATELET COUNT 241 K/mm3 (130-400); RED BLOOD COUNT 4.48 M/mm3 (4.20-5.60); REDCELL DISTRIBUTION WIDTH-CV 13.4 % (11.5-14.5)
== END ==
LOC: ZCOL.LAB 19:53
PROVIDERS: Family Medicine
DX: F20.9 Schizophrenia, unspecified (principal)

== ENCOUNTER → 2022-07-30 | Outpatient (REF) | payer MEDICARE, MEDICAID ==
[2022-07-30 13:12] LABS: BASO % 0.6 % (0.0-2.0); EOS # 0.3 K/mm3 (0.0-0.7); EOS % 4.2 % (0.0-4.0); GRAN # 4.1 K/mm3 (1.4-6.5); GRAN % 56.7 % (42.2-75.2); HEMATOCRIT 43.5 % (42.0-52.0); HEMOGLOBIN 14.3 g/dl (13.5-18.0); LYMPH # 2.2 K/mm3 (1.2-3.4); LYMPH % 30.8 % (20.0-51.0); MEAN CELL VOLUME 95 fl (80.0-100.0); MEAN CORPUSCULAR HEMOGLOBIN 31 pg (27-31); MEAN CORPUSCULAR HGB CONC 33 g/dl (33.0-37.0); MEAN PLATELET VOLUME 10.1 fl (7.4-10.4); MONO # 0.5 K/mm3 (0.1-0.6); MONO % 7.1 % (1.7-9.3); PLATELET COUNT 159 K/mm3 (130-400); RED BLOOD COUNT 4.57 M/mm3 (4.20-5.60); REDCELL DISTRIBUTION WIDTH-CV 13.1 % (11.5-14.5)
== END ==
LOC: ZCOL.LAB 12:15
PROVIDERS: Family Medicine
DX: Z79.899 Other long term (current) drug therapy (principal)

== ENCOUNTER → 2022-08-28 | Outpatient (REF) | payer MEDICARE, MEDICAID ==
[2022-08-28 16:25] LABS: BASO # 0.1 K/mm3 (0.0-0.2); BASO % 0.6 % (0.0-2.0); EOS # 0.3 K/mm3 (0.0-0.7); EOS % 3.1 % (0.0-4.0); GRAN # 6.1 K/mm3 (1.4-6.5); GRAN % 67.9 % (42.2-75.2); HEMATOCRIT 43.1 % (42.0-52.0); HEMOGLOBIN 14.2 g/dl (13.5-18.0); LYMPH # 1.9 K/mm3 (1.2-3.4); LYMPH % 21.3 % (20.0-51.0); MEAN CELL VOLUME 94 fl (80.0-100.0); MEAN CORPUSCULAR HEMOGLOBIN 31 pg (27-31); MEAN CORPUSCULAR HGB CONC 33 g/dl (33.0-37.0); MEAN PLATELET VOLUME 10.2 fl (7.4-10.4); MONO # 0.6 K/mm3 (0.1-0.6); MONO % 6.5 % (1.7-9.3); PLATELET COUNT 174 K/mm3 (130-400); RED BLOOD COUNT 4.57 M/mm3 (4.20-5.60); REDCELL DISTRIBUTION WIDTH-CV 13.2 % (11.5-14.5)
== END ==
LOC: ZCOL.LAB 15:49
PROVIDERS: Family Medicine
DX: F20.9 Schizophrenia, unspecified (principal)

== ENCOUNTER → 2022-12-16 | Outpatient (CLI) | payer MEDICARE, MEDICAID ==
[2022-12-16 12:30] LABS: BASO # 0.1 K/mm3 (0.0-0.2); BASO % 0.6 % (0.0-2.0); EOS # 0.3 K/mm3 (0.0-0.7); EOS % 3.9 % (0.0-4.0); GRAN # 4.9 K/mm3 (1.4-6.5); GRAN % 56.9 % (42.2-75.2); HEMATOCRIT 45.6 % (42.0-52.0); HEMOGLOBIN 15.4 g/dl (13.5-18.0); LYMPH # 2.6 K/mm3 (1.2-3.4); LYMPH % 30.6 % (20.0-51.0); MEAN CELL VOLUME 93 fl (80.0-100.0); MEAN CORPUSCULAR HEMOGLOBIN 31 pg (27-31); MEAN CORPUSCULAR HGB CONC 34 g/dl (33.0-37.0); MEAN PLATELET VOLUME 9.4 fl (7.4-10.4); MONO # 0.7 K/mm3 (0.1-0.6); MONO % 7.8 % (1.7-9.3); PLATELET COUNT 166 K/mm3 (130-400); RED BLOOD COUNT 4.91 M/mm3 (4.20-5.60); REDCELL DISTRIBUTION WIDTH-CV 12.7 % (11.5-14.5)
== END ==
LOC: COL.LAB 12:17
PROVIDERS: Family Medicine
DX: I20.9 Angina pectoris, unspecified (principal)

== ENCOUNTER → 2023-01-01 | Outpatient (REF) | payer MEDICARE, MEDICAID ==
[2023-01-01 17:02] LABS: BASO # 0.1 K/mm3 (0.0-0.2); BASO % 0.8 % (0.0-2.0); EOS # 0.3 K/mm3 (0.0-0.7); EOS % 3.6 % (0.0-4.0); GRAN # 4.4 K/mm3 (1.4-6.5); GRAN % 55.8 % (42.2-75.2); HEMATOCRIT 43.7 % (42.0-52.0); HEMOGLOBIN 15.2 g/dl (13.5-18.0); LYMPH # 2.4 K/mm3 (1.2-3.4); LYMPH % 30.5 % (20.0-51.0); MEAN CELL VOLUME 91 fl (80.0-100.0); MEAN CORPUSCULAR HEMOGLOBIN 32 pg (27-31); MEAN CORPUSCULAR HGB CONC 35 g/dl (33.0-37.0); MEAN PLATELET VOLUME 9.7 fl (7.4-10.4); MONO # 0.7 K/mm3 (0.1-0.6); MONO % 8.8 % (1.7-9.3); PLATELET COUNT 175 K/mm3 (130-400); RED BLOOD COUNT 4.83 M/mm3 (4.20-5.60); REDCELL DISTRIBUTION WIDTH-CV 12.6 % (11.5-14.5)
== END ==
LOC: ZCOL.LAB 16:30
PROVIDERS: Family Medicine
DX: Z51.81 Encounter for therapeutic drug level monitoring (principal)

== ENCOUNTER → 2023-01-13 | Outpatient (CLI) | payer MEDICARE, MEDICAID ==
[2023-01-13 14:03] LABS: ALBUMIN 3.8 gm/dL (3.4-4.8); CALCIUM 9.1 mg/dL (8.4-10.2); CHOLESTEROL RISK RATIO 3.8; CREATININE, serum 0.87 mg/dL (0.72-1.25); POTASSIUM 4.6 mmol/L (3.5-4.5); TOTAL PROTEIN 7.1 gm/dL (6.2-8.1)
[2023-01-13 14:13] LABS: BASO # 0.1 K/mm3 (0.0-0.2); BASO % 0.8 % (0.0-2.0); EOS # 0.3 K/mm3 (0.0-0.7); EOS % 3.9 % (0.0-4.0); GRAN # 4.7 K/mm3 (1.4-6.5); GRAN % 60.7 % (42.2-75.2); HEMOGLOBIN 15.5 g/dl (13.5-18.0); LYMPH # 2.2 K/mm3 (1.2-3.4); LYMPH % 27.7 % (20.0-51.0); MEAN CELL VOLUME 93 fl (80.0-100.0); MEAN CORPUSCULAR HEMOGLOBIN 32 pg (27-31); MEAN CORPUSCULAR HGB CONC 34 g/dl (33.0-37.0); MEAN PLATELET VOLUME 10.3 fl (7.4-10.4); MONO # 0.5 K/mm3 (0.1-0.6); MONO % 6.5 % (1.7-9.3); PLATELET COUNT 185 K/mm3 (130-400); RED BLOOD COUNT 4.85 M/mm3 (4.20-5.60); REDCELL DISTRIBUTION WIDTH-CV 12.6 % (11.5-14.5)
== END ==
LOC: ZCOL.LAB 11:54
PROVIDERS: Family Medicine
DX: Z12.5 Encounter for screening for malignant neoplasm of prostate (principal); I10 Essential (primary) hypertension; I25.89 Other forms of chronic ischemic heart disease; E66.01 Morbid (severe) obesity due to excess calories; E55.9 Vitamin D deficiency, unspecified

== ENCOUNTER → 2023-03-01 | Outpatient (CLI) | payer MEDICARE, MEDICAID ==
[2023-03-01 12:27] LABS: BASO % 0.5 % (0.0-2.0); EOS # 0.2 K/mm3 (0.0-0.7); EOS % 2.9 % (0.0-4.0); GRAN # 5.7 K/mm3 (1.4-6.5); GRAN % 68.9 % (42.2-75.2); HEMATOCRIT 47.3 % (42.0-52.0); LYMPH # 1.8 K/mm3 (1.2-3.4); MEAN CELL VOLUME 93 fl (80.0-100.0); MEAN CORPUSCULAR HEMOGLOBIN 32 pg (27-31); MEAN CORPUSCULAR HGB CONC 34 g/dl (33.0-37.0); MEAN PLATELET VOLUME 9.7 fl (7.4-10.4); MONO # 0.4 K/mm3 (0.1-0.6); MONO % 5.2 % (1.7-9.3); PLATELET COUNT 172 K/mm3 (130-400); RED BLOOD COUNT 5.08 M/mm3 (4.20-5.60); REDCELL DISTRIBUTION WIDTH-CV 12.8 % (11.5-14.5)
== END ==
LOC: ZCOL.LAB 12:18
PROVIDERS: Family Medicine
DX: F20.9 Schizophrenia, unspecified (principal)

== ENCOUNTER → 2023-03-13 | Outpatient (CLI) | payer MEDICARE, MEDICAID ==
[2023-03-13 12:15] LABS: BASO % 0.4 % (0.0-2.0); EOS # 0.2 K/mm3 (0.0-0.7); EOS % 3.1 % (0.0-4.0); GRAN # 4.7 K/mm3 (1.4-6.5); GRAN % 64.3 % (42.2-75.2); HEMATOCRIT 46.1 % (42.0-52.0); HEMOGLOBIN 15.7 g/dl (13.5-18.0); LYMPH # 2.1 K/mm3 (1.2-3.4); LYMPH % 27.8 % (20.0-51.0); MEAN CELL VOLUME 94 fl (80.0-100.0); MEAN CORPUSCULAR HEMOGLOBIN 32 pg (27-31); MEAN CORPUSCULAR HGB CONC 34 g/dl (33.0-37.0); MEAN PLATELET VOLUME 9.6 fl (7.4-10.4); MONO # 0.3 K/mm3 (0.1-0.6); MONO % 4.1 % (1.7-9.3); PLATELET COUNT 165 K/mm3 (130-400); RED BLOOD COUNT 4.89 M/mm3 (4.20-5.60); REDCELL DISTRIBUTION WIDTH-CV 13.1 % (11.5-14.5)
== END ==
LOC: ZCOL.LAB 11:31
PROVIDERS: Family Medicine
DX: Z51.81 Encounter for therapeutic drug level monitoring (principal)

== ENCOUNTER → 2023-04-07 | Outpatient (CLI) | payer MEDICARE ==
[2023-04-07 11:08] LABS: BASO # 0.1 K/mm3 (0.0-0.2); BASO % 0.7 % (0.0-2.0); EOS # 0.2 K/mm3 (0.0-0.7); EOS % 3.2 % (0.0-4.0); GRAN # 4.3 K/mm3 (1.4-6.5); GRAN % 60.8 % (42.2-75.2); HEMATOCRIT 43.2 % (42.0-52.0); HEMOGLOBIN 14.9 g/dl (13.5-18.0); LYMPH % 28.3 % (20.0-51.0); MEAN CELL VOLUME 92 fl (80.0-100.0); MEAN CORPUSCULAR HEMOGLOBIN 32 pg (27-31); MEAN CORPUSCULAR HGB CONC 35 g/dl (33.0-37.0); MEAN PLATELET VOLUME 9.5 fl (7.4-10.4); MONO # 0.5 K/mm3 (0.1-0.6); MONO % 6.4 % (1.7-9.3); PLATELET COUNT 148 K/mm3 (130-400); RED BLOOD COUNT 4.69 M/mm3 (4.20-5.60); REDCELL DISTRIBUTION WIDTH-CV 13.1 % (11.5-14.5)
== END ==
LOC: COL.LAB 10:42
PROVIDERS: Family Medicine
DX: Z79.899 Other long term (current) drug therapy (principal)

== ENCOUNTER → 2023-04-19 | Outpatient (CLI) | payer MEDICARE ==
[~2023-04-19] MED LIST changes: +Albuterol 0.083% Neb Soln 2.5 MG/3 ML UD IH ONE
== END ==
LOC: COL.CARD 07:31
DX: R06.02 Shortness of breath (principal)

== ENCOUNTER → 2023-05-04 | Outpatient (CLI) | payer OTHER ==
[~2023-05-04] MED LIST changes: -Albuterol 0.083% Neb Soln 2.5 MG/3 ML UD IH ONE
[2023-05-04 21:32] LABS: BASO % 0.4 % (0.0-2.0); EOS # 0.2 K/mm3 (0.0-0.7); EOS % 1.9 % (0.0-4.0); GRAN # 6.2 K/mm3 (1.4-6.5); GRAN % 60.3 % (42.2-75.2); HEMATOCRIT 45.7 % (42.0-52.0); HEMOGLOBIN 15.1 g/dl (13.5-18.0); LYMPH % 29.1 % (20.0-51.0); MEAN CELL VOLUME 95 fl (80.0-100.0); MEAN CORPUSCULAR HEMOGLOBIN 31 pg (27-31); MEAN CORPUSCULAR HGB CONC 33 g/dl (33.0-37.0); MEAN PLATELET VOLUME 9.7 fl (7.4-10.4); MONO # 0.8 K/mm3 (0.1-0.6); MONO % 7.7 % (1.7-9.3); PLATELET COUNT 170 K/mm3 (130-400); RED BLOOD COUNT 4.82 M/mm3 (4.20-5.60); REDCELL DISTRIBUTION WIDTH-CV 13.2 % (11.5-14.5)
== END ==
LOC: ZCOL.LAB 21:21
PROVIDERS: Family Medicine
DX: Z79.899 Other long term (current) drug therapy (principal)

== ENCOUNTER → 2023-05-19 | Outpatient (CLI) | payer MEDICARE ==
[2023-05-19 12:28] LABS: BASO % 0.5 % (0.0-2.0); EOS # 0.1 K/mm3 (0.0-0.7); EOS % 1.8 % (0.0-4.0); GRAN # 4.8 K/mm3 (1.4-6.5); GRAN % 60.8 % (42.2-75.2); HEMATOCRIT 45.4 % (42.0-52.0); HEMOGLOBIN 15.1 g/dl (13.5-18.0); LYMPH # 2.3 K/mm3 (1.2-3.4); LYMPH % 29.8 % (20.0-51.0); MEAN CELL VOLUME 95 fl (80.0-100.0); MEAN CORPUSCULAR HEMOGLOBIN 32 pg (27-31); MEAN CORPUSCULAR HGB CONC 33 g/dl (33.0-37.0); MONO # 0.5 K/mm3 (0.1-0.6); MONO % 6.7 % (1.7-9.3); PLATELET COUNT 159 K/mm3 (130-400); RED BLOOD COUNT 4.76 M/mm3 (4.20-5.60); REDCELL DISTRIBUTION WIDTH-CV 13.5 % (11.5-14.5)
== END ==
LOC: COL.RAD 10:58 → ZCOL.LAB 10:58 → COL.RAD 05-22 08:00
PROVIDERS: Internal Medicine Pulmonary Disease
DX: Z79.899 Other long term (current) drug therapy (principal)

== ENCOUNTER → 2023-05-22 | Outpatient (CLI) | payer MEDICARE ==
[~2023-05-22] MED LIST changes: +AMOXICILLIN 8751 TAB PO; +ATARAX 25MG25 MG/TAB PO; +BIOFREEZE 0.2%-1 GE1 TOP; +CLARITIN 1010 MG/TAB PO; +CLOZAPINE50 MG PO; +CLOZARIL25 MG PO; +COLACE 100100 MG/CAP PO; +FLEXERIL5 MG PO; +GERI-TUSSI100 MG/5 M PO; +KLOR-CON M1010 MEQ PO; +MOTRIN 800800 MG/TAB PO; +MUCUS RELIEF1200 MG PO; +NORCO 325 MG-51 TAB PO; +PREDNISONE10 MG PO; +PROAIR HFA0.09 MG/AC IH; +RISPERDAL 0.5M0.5 MG PO; +ZOLOFT 50MG50 MG PO
== END ==
LOC: COL.RAD 08:03
DX: R06.02 Shortness of breath (principal)

== ENCOUNTER 2023-06-01 15:09 | Inpatient (IN) | payer MEDICARE, MEDICAID ==
[~2023-06-01] VITALS: Ht 172.7 cm; Wt 137.0 kg
[~2023-06-01 15:09] MED LIST changes: -AMOXICILLIN 8751 TAB PO; -ATARAX 25MG25 MG/TAB PO; -BIOFREEZE 0.2%-1 GE1 TOP; -CLARITIN 1010 MG/TAB PO; -CLOZAPINE50 MG PO; -CLOZARIL25 MG PO; -COLACE 100100 MG/CAP PO; -FLEXERIL5 MG PO; -GERI-TUSSI100 MG/5 M PO; -KLOR-CON M1010 MEQ PO; -MOTRIN 800800 MG/TAB PO; -MUCUS RELIEF1200 MG PO; -NORCO 325 MG-51 TAB PO; -PREDNISONE10 MG PO; -PROAIR HFA0.09 MG/AC IH; -RISPERDAL 0.5M0.5 MG PO; -ZOLOFT 50MG50 MG PO
[2023-06-01 15:50] LABS: BASO % 0.3 % (0.0-2.0); EOS % 0.2 % (0.0-4.0); GRAN # 9.9 K/mm3 (1.4-6.5); GRAN % 80.8 % (42.2-75.2); HEMATOCRIT 48.8 % (42.0-52.0); LYMPH # 1.3 K/mm3 (1.2-3.4); LYMPH % 10.4 % (20.0-51.0); MEAN CELL VOLUME 92 fl (80.0-100.0); MEAN CORPUSCULAR HEMOGLOBIN 32 pg (27-31); MEAN CORPUSCULAR HGB CONC 35 g/dl (33.0-37.0); MEAN PLATELET VOLUME 9.1 fl (7.4-10.4); MONO % 7.8 % (1.7-9.3); PLATELET COUNT 112 K/mm3 (130-400); RED BLOOD COUNT 5.32 M/mm3 (4.20-5.60); REDCELL DISTRIBUTION WIDTH-CV 13.3 % (11.5-14.5)
[2023-06-01] MEDS ORDERED: dexAMETHasone 10 MG/ML VIAL IV ONE (16:00)
[2023-06-01] MEDS ORDERED: Albuterol/Ipratropium 3 MG-0.5 MG/3 ML Neb Soln IH ONE (16:00)
[2023-06-01 16:08] LABS: ALBUMIN 3.8 gm/dL (3.4-4.8); BILIRUBIN,TOTAL 1.3 mg/dL (0.2-1.2); CALCIUM 9.7 mg/dL (8.4-10.2); CREATININE, serum 1.15 mg/dL (0.72-1.25); POTASSIUM 4.3 mmol/L (3.5-4.5); TOTAL PROTEIN 7.9 gm/dL (6.2-8.1)
[2023-06-01 16:16] LABS: TROPONIN-I 0.012 ng/mL (0.00-0.033)
[2023-06-01 16:18] LABS: ARTERIAL BLD GAS TCO2 CT 33.2; ARTERIAL BLOOD GAS BASE EXCESS 5.4 (-2-2); ARTERIAL BLOOD GAS HCO3 31.6 meq/L (22-26); ARTERIAL BLOOD GAS PCO2 51.2 mmHg (35-45); ARTERIAL BLOOD GAS pH 7.41 (7.35-7.45)
[2023-06-01] MEDS ORDERED: Iohexol 350 - 100 ML VIAL IV ONE (17:01)
[2023-06-01] MEDS ORDERED: NS 100 ML IV SCH (17:14)
[2023-06-01] MEDS ORDERED: cefTRIAXone 1 G in Water For Injection,Sterile 10 ML IV ONE (17:15)
[2023-06-01] MEDS ORDERED: Polyethylene Glycol 3350 17 GM PDS PO PRN (18:30)
[2023-06-01] MEDS ORDERED: Azithromycin 250 MG TAB PO ONE (18:30)
[2023-06-01] MEDS ORDERED: Ondansetron 4 MG/2 ML VIAL IV PRN (18:45)
[2023-06-01] MEDS ORDERED: Acetaminophen 325 MG TAB PO PRN (18:45)
[2023-06-01] MEDS ORDERED: Melatonin 3 MG TAB PO PRN (18:45)
[2023-06-01] MEDS ORDERED: Albuterol/Ipratropium 3 MG-0.5 MG/3 ML Neb Soln IH SCH (19:00)
[2023-06-01] MEDS ORDERED: PROAIR HFA0.09 MG/AC IH (20:09)
[2023-06-01] MEDS ORDERED: KLOR-CON M1010 MEQ PO (20:09)
[2023-06-01] MEDS ORDERED: CLARITIN 1010 MG/TAB PO (20:09)
[2023-06-01] MEDS ORDERED: LASIX 20MG TABL20 MG PO (20:10)
[2023-06-01] MEDS ORDERED: TOPROL XL100 MG PO (20:10)
[2023-06-01] MEDS ORDERED: RISPERDAL 0.5M0.5 MG PO (20:11)
[2023-06-01] MEDS ORDERED: CLOZAPINE50 MG PO (20:12)
[2023-06-01] MEDS ORDERED: TYLENOL 325MG325 MG PO (20:21)
[2023-06-01] MEDS ORDERED: COLACE 100100 MG/CAP PO (20:25)
[2023-06-01] MEDS ORDERED: FLEXERIL5 MG PO (20:27)
[2023-06-01] MEDS ORDERED: NORCO 325 MG-51 TAB PO (20:30)
[2023-06-01] MEDS ORDERED: MUCUS RELIEF1200 MG PO (20:32)
[2023-06-01] MEDS ORDERED: MOTRIN 800800 MG/TAB PO (20:33)
[2023-06-01] MEDS ORDERED: ATARAX 25MG25 MG/TAB PO (20:34)
[2023-06-01] MEDS ORDERED: GERI-TUSSI100 MG/5 M PO (20:35)
--- NOTE | 2023-06-01 20:45 | NUR ---
Admitted to medical floor from ER with SOB, PNA,, pt is from [facility] living, Alert/oriented x4 at this time, Tele on, did receive antibiotics in ER, INT to right hand, o2 at 8L/oxymask with sat of 93%. States he uses the wheelchair to get around, using the urinal in bed with assistance- bed alarm on- fall risk pt--pt states understanding. Understands we need a sputum and urine specimen-
[2023-06-01 21:00] VITALS: BP_SYST 113
[2023-06-01] MEDS ORDERED: Patient's Own Medication Item PO SCH ×2 (21:00)
[2023-06-01] MEDS ORDERED: Doxepin 25 MG CAP PO SCH (21:00)
[2023-06-01] MEDS ORDERED: Atorvastatin 40 MG TAB PO SCH (21:00)
[2023-06-01] MEDS ORDERED: Albuterol 0.083% Neb Soln 2.5 MG/3 ML UD IH PRN (21:00)
[2023-06-01] MEDS ORDERED: Gabapentin 400 MG CAP PO SCH (21:00)
[2023-06-01] MEDS ORDERED: Prazosin 1 MG CAP PO SCH (21:00)
[2023-06-01] MEDS ORDERED: Ibuprofen 800 MG TAB PO PRN (21:00)
[2023-06-01] MEDS ORDERED: Cyclobenzaprine 10 MG TAB PO PRN (21:00)
[2023-06-01] MEDS ORDERED: LORazepam 1 MG TAB PO SCH (21:00)
[2023-06-01] MEDS ORDERED: traZODone 100 MG TAB PO SCH (21:00)
[2023-06-01 21:49] VITALS: BP 130/83; PULSE 80; TEMP 98.2
[2023-06-01] MEDS ORDERED: BIOFREEZE 0.2%-1 GE1 TOP (21:49)
[2023-06-01] MEDS ORDERED: guaiFENesin/Dextromethorphan Oral Soln 200-20 MG/10 ML UD PO PRN (22:00)
[2023-06-01] MEDS ORDERED: Benzonatate 100 MG CAP PO PRN (22:00)
[2023-06-01] MEDS ORDERED: Methyl Salicylate/Menthol Cream 85 GM TUBE TP PRN (22:30)
[2023-06-01 23:10] VITALS: BP 113/71; PULSE 83; TEMP 97.6
[2023-06-02] VITALS (12 sets, daily range): BP systolic 109–142; BP diastolic 7–89; PULSE 72–79; TEMP 97.5–98.1
--- NOTE | 2023-06-02 05:35 | NUR ---
Quiet night-- after all his night meds- pt fell right to sleep and has been sleeping good, o2 sats are right at 90-91% on the 8 L/oxymask. Tele on- SR
[2023-06-02] MEDS ORDERED: Furosemide 20 MG TAB PO SCH (08:00)
[2023-06-02 08:26] LABS: BASO % 0.1 % (0.0-2.0); GRAN % 83.6 % (42.2-75.2); HEMATOCRIT 43.5 % (42.0-52.0); HEMOGLOBIN 15.3 g/dl (13.5-18.0); LYMPH # 0.8 K/mm3 (1.2-3.4); MEAN CELL VOLUME 90 fl (80.0-100.0); MEAN CORPUSCULAR HEMOGLOBIN 32 pg (27-31); MEAN CORPUSCULAR HGB CONC 35 g/dl (33.0-37.0); MEAN PLATELET VOLUME 9.3 fl (7.4-10.4); MONO # 0.5 K/mm3 (0.1-0.6); MONO % 5.9 % (1.7-9.3); PLATELET COUNT 127 K/mm3 (130-400); RED BLOOD COUNT 4.81 M/mm3 (4.20-5.60); REDCELL DISTRIBUTION WIDTH-CV 12.9 % (11.5-14.5)
[2023-06-02 08:39] LABS: CALCIUM 9.1 mg/dL (8.4-10.2); CREATININE, serum 1.14 mg/dL (0.72-1.25); POTASSIUM 3.5 mmol/L (3.5-4.5)
[2023-06-02] MEDS ORDERED: Thiamine 100 MG TAB PO SCH (09:00)
[2023-06-02] MEDS ORDERED: Sertraline 100 MG,Sertraline 50 MG PO SCH (09:00)
[2023-06-02] MEDS ORDERED: Folic Acid 1 MG TAB PO SCH (09:00)
[2023-06-02] MEDS ORDERED: Loratadine 10 MG TAB PO SCH (09:00)
[2023-06-02] MEDS ORDERED: Docusate Sodium 100 MG CAP PO SCH (09:00)
[2023-06-02] MEDS ORDERED: amLODIPine 10 MG TAB PO SCH (09:00)
--- NOTE | 2023-06-02 09:25 | NUR ---
PHARMACY CALLED REGARDING PATIENTS HOME MEDS. PATIENT CLONZIPINE IS UNAVAILABLE AND THERE IS NO MEDICATION WE HAVE TO REPLACE IT WITH. THIS RN TO CALL STEPHANI WONG TO SEE IF WE CAN GET PATIENTS OWN MED.
[2023-06-02] MEDS ORDERED: dexAMETHasone 10 MG/ML VIAL IV SCH (09:30)
--- NOTE | 2023-06-02 09:35 | NUR ---
[facility] NURSE DORI CONTACTED. THIS RN INFORMED HE WE NEED PATIENTS CLONZIPINE WE DO NOT CARRY THAT MEDICATION IN HOSPITAL. DORI CHECKED WITH LUIS MANUEL MANNING, AND IS AUTHORIZED TO BRING IT TO [facility].
--- NOTE | 2023-06-02 10:10 | NUR ---
PHARMACIST CONTACTED THAT PATIENTS OWN MED IS READY TO BE PICKED UP AND LABELED.
--- NOTE | 2023-06-02 10:41 | NUR ---
[facility] OWN MED RETURNED FORM PHAARMACY WIHT LABEL, MEDICATION IN PATEINTS BIN.
[2023-06-02] MEDS ORDERED: Albuterol/Ipratropium 3 MG-0.5 MG/3 ML Neb Soln IH SCH (11:00)
[2023-06-02] MEDS ORDERED: cefTRIAXone 1 G in Water For Injection,Sterile 10 ML IV SCH (21:00)
[2023-06-02] MEDS ORDERED: Azithromycin 250 MG TAB PO SCH (21:00)
[2023-06-03] VITALS (11 sets, daily range): BP systolic 109–134; BP diastolic 65–88; PULSE 68–74; TEMP 97.4–98.7
--- NOTE | 2023-06-03 06:30 | NUR ---
REPORT RECEIVED FROM DC SANDERS
--- NOTE | 2023-06-03 09:55 | NUR ---
PT LAYING IN BED UPON ENTERING. ASSESSMENT DONE, MEDS GIVEN PER ORDER. PT REFUSED COLACE. PT REPORTS LOWER BAG AND LEFT LEG PAIN, PRN NORCO GIVEN. PT EDUCATED ON NEEDED MEDICATIONS INCLUDING FREQUENCY AND NEEDING TO NOTIFY STAFF WHEN IN PAIN, PT VERBALIZED UNDERSTANDING. INT TO RIGHT HAND PATENT. PT ON 4L NASAL CANNULA AND REPORTS SHORTNESS OF BREATH ASKING WHEN HE CAN GET A BREATHING TREATMENT NEXT, PT NOTIFIED THAT RESPIRATORY WOULD BE CALLED. NONPRODUCTIVE COUGH NOTED, PRN TESSALON PERLES GIVEN. EXPIRATORY WHEEZES HEARD IN ALL GARZA. PT DENIES NEEDS. BED IN LOWEST POSITION, CALL LIGHT IN REACH, BED ALARM ON
[2023-06-03] MEDS ORDERED: ZOLOFT 50MG50 MG PO (10:02)
[2023-06-03] MEDS ORDERED: FOLIC ACID 11 MG/TA1 PO (10:20)
[2023-06-03] MEDS ORDERED: CLOZARIL25 MG PO (10:22)
[2023-06-03] MEDS ORDERED: ASPIRIN E.C. 8181 MG PO (10:25)
--- NOTE | 2023-06-03 10:36 | NUR ---
PT REPORTS SHORTNESS OF BREATH AND ASKING FOR A BREATHING TREATMENT, RESPIRATORY CALLED AND NOTIFIED
[2023-06-03 11:11] LABS: CALCIUM 9.3 mg/dL (8.4-10.2); CREATININE, serum 1.03 mg/dL (0.72-1.25); POTASSIUM 4.1 mmol/L (3.5-4.5)
[2023-06-03 11:37] LABS: BASO % 0.1 % (0.0-2.0); GRAN # 9.7 K/mm3 (1.4-6.5); HEMATOCRIT 46.5 % (42.0-52.0); HEMOGLOBIN 16.1 g/dl (13.5-18.0); LYMPH % 9.1 % (20.0-51.0); MEAN CELL VOLUME 92 fl (80.0-100.0); MEAN CORPUSCULAR HEMOGLOBIN 32 pg (27-31); MEAN CORPUSCULAR HGB CONC 35 g/dl (33.0-37.0); MEAN PLATELET VOLUME 11.1 fl (7.4-10.4); MONO # 0.2 K/mm3 (0.1-0.6); MONO % 2.2 % (1.7-9.3); PLATELET COUNT 124 K/mm3 (130-400); RED BLOOD COUNT 5.08 M/mm3 (4.20-5.60); REDCELL DISTRIBUTION WIDTH-CV 13.1 % (11.5-14.5)
--- NOTE | 2023-06-03 13:07 | NUR ---
poultry process worker faxed updates to Victorina at [facility]. SHADIA attempted to call sonRedd at [phone] and [phone] and the number could not go through. SHADIA spoke with NANCY Almazan and was informed they are still reviewing patient. Discharge Plan: back to [facility] with HH or IPR
[2023-06-03] MEDS ORDERED: Insulin Aspart (NovoLOG) SQ ONE (13:45)
--- NOTE | 2023-06-03 16:23 | NUR ---
ironworker wire fence erector met with patient to discuss discharge planning. Patient lives at [facility] in [place]. PCP is Dr. Centeno, pharmacy is [facility]. No issues affording medications. Point of contact is Redd, patient was uncertain on phone number, number on chart is [phone]. DPOA-HC is Redd. DME is a wheelchair. Patient reports he receives assistance with ADLS when he asks for assistance. Patient reports [facility]. Patient would like to return to [facility] if possible. SW left a list of home health services as PT/OT recommendations stated to return to [facility] with HH or IPR. Patient reports he would be open to home health but wanted to decide closer to discharge if it was needed. DIscharge plan: [facility] with
[2023-06-03] MEDS ORDERED: Insulin Aspart (NovoLOG) SQ SCH (17:00)
--- NOTE | 2023-06-03 17:16 | NUR ---
PT REPORTS BACK PAIN WITH LITTLE IMPROVEMENT. PT UNABLE TO ET NORCO AT THIS TIME AND GIVEN PRN MOTRIN
--- NOTE | 2023-06-03 18:40 | NUR ---
PATIENT RESTING IN BED WATCHING TV WITH NO ACUTE DISTRESS NOTED. PATIENT ON 3 LITERS OF OXYGEN VIA NC. INT TO RIGHT HAND INTACT WITH NO COMPLICATIONS NOTED. TELEMETRY INTACT. PATIENT DENIES ANY NEEDS. PATIENT CARE ASSUMED FROM [facility]. BED IN LOW POSITION WITH WHEELS LOCKED WITH RAILS UP X3 AND CALL LIGHT WITHIN REACH. BED ALARM ON.
--- NOTE | 2023-06-03 21:20 | NUR ---
PATIENT RESTING IN BED WATCHING TV WITH NO FAMILY PRESENT WITH NO ACUTE DISTRESS NOTED. PATIENT ON 3 LITES OF OXYGEN VIA NC. ASSESSMENT AND MEDICATION ADMINISTRATION COMPLETED AT THIS TIME. PAITENT TOLERATED WELL. INT TO RIGHT HAND INTACT WITH NO COMPLICATIONS NOTED. TELEMETRY INTACT. PATIENT DENIES ANY NEEDS AT THIS TIME. BED IN LOW POSITION WITH WHEELS LOCKED WITH RAILS UP X3 AND CALL LIGHT WITHIN REACH. BED ALARM ON.
[2023-06-04] VITALS (12 sets, daily range): BP systolic 115–152; BP diastolic 71–86; PULSE 63–72; TEMP 97.3–97.8
[2023-06-04 07:52] LABS: CALCIUM 9.2 mg/dL (8.4-10.2); CREATININE, serum 0.96 mg/dL (0.72-1.25)
[2023-06-04] MEDS ORDERED: Glucagon 1 MG VIAL IM PRN (08:45)
[2023-06-04] MEDS ORDERED: Dextrose (Glucose) 15 GM (4 x 3.75 GM) Chewable TABLET PACK PO PRN (08:45)
[2023-06-04] MEDS ORDERED: Dextrose 50% Water 25 GM/50 ML SYRINGE IV PRN (08:45)
--- NOTE | 2023-06-04 11:31 | NUR ---
Social work student Abena faxed updates to Chris.
[2023-06-04] MEDS ORDERED: Insulin Lispro (HumaLOG) SQ SCH (12:00)
--- NOTE | 2023-06-04 13:13 | NUR ---
direct service worker called patient's room to follow up on Home Health list provided. Patient reports he has not had a chance to look at it and is not going to today. SW informed him that if he would like this it would need to be set up tomorrow, if he returns to [facility]. SHADIA notes PT/OT state patient is at [facility] and can return to [facility]. SHADIA called PT Marcello who reports they would suggest HH still as a support. Discharge Plan: IPR review vs back to [facility] with ELIER alonso
--- NOTE | 2023-06-04 19:23 | NUR ---
PATIENT RESTING IN BED WATCHING TV WITH NO FAMILY PRESENT WITH NO ACUTE DISTRESS NOTED. PATIENT ON 3 LITERS OF OXYGEN VIA NC. INT TO RIGHT HAND INTACT WITH NO COMPLICATIONS NOTED. TELEMETRY INTACT. PATIENT STATES "I'M STILL HERE AND BORED." PATIENT DENIES ANY NEEDS AT THIS TIME. PATIENT CARE ASSUMED FROM [facility]. BED IN LOW POSITION WITH WHEELS LOCKED WITH RAILS UP X3 AND CALL LIGHT WITHIN REACH. BED ALARM ON.
--- NOTE | 2023-06-04 22:15 | NUR ---
PATIENT RESTING IN BED WITH TV ON WITH NO ACUTE DISTRESS NOTED. PATIENT ON 3 LTIERS OF OXYGEN VIA NC. INT TO RIGHT HAND INTACT WITH NO COMPLICATIONS NOTED. TELEMETRY INTACT. ASSESSMENT AND MEDICATION ADMINISTRATION COMPLETED AT THIS TIME. PATIENT TOLERATED WELL. PATIENT REQUESTED SANDWICH TRAY, ICE, WATER, AND URINAL TO BE EMPTIED. ALL COMPLETED. PATIENT VOIDED 300 ML OF CLEAR YELLOW URINE. PATIENT DENIES ANY OTHER NEEDS. BED IN LOW POSITION WITH WHEELS LOCKED WITH RAILS UP X3 AND CALL LIGHT WITHIN REACH. BED ALARM ON.
[2023-06-05] VITALS (12 sets, daily range): BP systolic 114–141; BP diastolic 75–90; PULSE 65–86; TEMP 97.5–97.7
[2023-06-05 08:44] LABS: HEMATOCRIT 44.1 % (42.0-52.0); HEMOGLOBIN 15.6 g/dl (13.5-18.0); MEAN CELL VOLUME 90 fl (80.0-100.0); MEAN CORPUSCULAR HEMOGLOBIN 32 pg (27-31); MEAN CORPUSCULAR HGB CONC 35 g/dl (33.0-37.0); MEAN PLATELET VOLUME 9.8 fl (7.4-10.4); PLATELET COUNT 134 K/mm3 (130-400); RED BLOOD COUNT 4.88 M/mm3 (4.20-5.60); REDCELL DISTRIBUTION WIDTH-CV 13.1 % (11.5-14.5)
[2023-06-05 08:57] LABS: CALCIUM 9.3 mg/dL (8.4-10.2); CREATININE, serum 0.84 mg/dL (0.72-1.25); POTASSIUM 3.9 mmol/L (3.5-4.5)
[2023-06-05] MEDS ORDERED: dexAMETHasone 10 MG/ML VIAL IV SCH (09:00)
[2023-06-05 09:48] LABS: BAND 1 % (0-10); LYMPHOCYTE 46 % (20.0-51.0); NEUTROPHILS 51 % (42.0-75.2); PLATELET ESTIMATE NORMAL (NORMAL)
--- NOTE | 2023-06-05 13:21 | NUR ---
connection worker spoke with Chacho at [facility] who reports patient is at their LTC unit, not assisted living. SHADIA emailed updates. SW recieved a call from Signdat from [employer] requesting an update. SHADIA advised pt will likely discharge tomorrow. Discharge Plan: Back to [facility]
--- NOTE | 2023-06-05 17:00 | NUR ---
Report received from DC Perdomo. Patient resting in bed, complains of pain in his righ hip 11/08, prn provided. Getting 4L O2 NC. No further needs at this time.
--- NOTE | 2023-06-05 20:30 | NUR ---
Initial shift assessment done, states he is bored-- states his hip pain is 7/10 at this time, was just medicated an hour/two ago,,o2 at 4L/nc with sats 92%, will get CXR in AM, Tele on, Bed alarm on
[2023-06-06] VITALS (7 sets, daily range): BP systolic 125–160; BP diastolic 77–95; PULSE 56–66; TEMP 97.7–98.5
--- NOTE | 2023-06-06 05:59 | NUR ---
Has been sleeping good all night-- VSS, o2 sats 90-92% on the 2L/nc.
[2023-06-06] MEDS ORDERED: Amoxicillin/Clavulanate K+ 875/125 MG TAB PO SCH (08:00)
[2023-06-06] MEDS ORDERED: AMOXICILLIN 8751 TAB PO (08:08)
--- NOTE | 2023-06-06 09:20 | NUR ---
PT LAYING IN BED UPON ENTERING. ASSESSMENT DONE, MEDS GIVEN PER ORDER. PT ORIENTED TO PERSON AND PLACE BUT UNABLE TO NAME CURRENT YEAR. PT REORIENTED AND SHORTLY AFTER STATING INCORRECT YEAR AGAIN. PT REORIENTED APPROPRIATELY DURING TIME AT BEDSIDE. PT ON 4L NASAL CANNULA. PT REPORTS BACK PAIN AT THIS TIME, PRN NORCO GIVEN PER ORDER. PT DENIES TRANSFERRING TO CHAIR FOR MEAL AND REPOSITIONED IN BED. INT TO RIGHT HAND PATENT. PT DENIES NEEDS AND SET UP FOR MEAL. BED IN LOWEST POSITION, CALL LIGHT IN REACH, BED ALARM ON
[2023-06-06 09:50] LABS: HEMATOCRIT 45.6 % (42.0-52.0); HEMOGLOBIN 15.5 g/dl (13.5-18.0); MEAN CELL VOLUME 92 fl (80.0-100.0); MEAN CORPUSCULAR HEMOGLOBIN 31 pg (27-31); MEAN CORPUSCULAR HGB CONC 34 g/dl (33.0-37.0); MEAN PLATELET VOLUME 10.2 fl (7.4-10.4); PLATELET COUNT 135 K/mm3 (130-400); RED BLOOD COUNT 4.94 M/mm3 (4.20-5.60); REDCELL DISTRIBUTION WIDTH-CV 13.2 % (11.5-14.5)
[2023-06-06] MEDS ORDERED: PREDNISONE10 MG PO (09:56)
[2023-06-06 10:08] LABS: CALCIUM 8.8 mg/dL (8.4-10.2); CREATININE, serum 0.8 mg/dL (0.72-1.25); POTASSIUM 4.2 mmol/L (3.5-4.5)
--- NOTE | 2023-06-06 12:34 | NUR ---
experimental worker was informed during clinical rounding pt can return to [facility] today. SHADIA emailed discharge orders to Chacho who requested skilled orders for PT/OT/ST. Chacho confirmed a transport time of 3pm. SHADIA informed DC Montelongo, Gi Madsen, and wrote it on the whiteboard. Discharge Plan: 3pm return to [facility]
[2023-06-06 13:03] LABS: LYMPHOCYTE 34 % (20.0-51.0); METAMYELOCYTE 2 % (0-0); NEUTROPHILS 59 % (42.0-75.2); PLATELET ESTIMATE NORMAL (NORMAL)
--- NOTE | 2023-06-06 16:24 | NUR ---
IV AND TELE REMOVED. PT DRESSED IN PERSONAL CLOTHES AND TRANSFERRED TO PERSONAL WHEELCHAIR BY PCT. PT ESCORTED TO [facility] BY THEIR STAFF. PACKET GIVEN TO TRANSPORT
== END 2023-06-06 16:00 | DRG 193 ==
LOC: COL.ER 15:09 → MEDICAL 19:14 → EDBEDREQ 19:19 → MEDICAL 21:00
PROVIDERS: Physician Assistant; ADMIT Internal Medicine
DX: J18.9 Pneumonia, unspecified organism (principal); J96.01 Acute respiratory failure with hypoxia; J96.02 Acute respiratory failure with hypercapnia; J44.0 Chronic obstructive pulmonary disease with (acute) lower respiratory infection; J44.1 Chronic obstructive pulmonary disease with (acute) exacerbation; I50.22 Chronic systolic (congestive) heart failure; F11.20 Opioid dependence, uncomplicated; I48.0 Paroxysmal atrial fibrillation; I11.0 Hypertensive heart disease with heart failure; F20.9 Schizophrenia, unspecified; F41.9 Anxiety disorder, unspecified; Z20.822 Contact with and (suspected) exposure to COVID-19; F41.0 Panic disorder [episodic paroxysmal anxiety]; G47.00 Insomnia, unspecified; M54.50 Low back pain, unspecified; K76.0 Fatty (change of) liver, not elsewhere classified; F17.210 Nicotine dependence, cigarettes, uncomplicated; G89.4 Chronic pain syndrome; E78.5 Hyperlipidemia, unspecified; F10.10 Alcohol abuse, uncomplicated; Z90.89 Acquired absence of other organs; Z99.81 Dependence on supplemental oxygen; Z99.3 Dependence on wheelchair; Z79.899 Other long term (current) drug therapy; Z79.82 Long term (current) use of aspirin; Z99.89 Dependence on other enabling machines and devices; Z23 Encounter for immunization
CPT/HCPCS: J0696; J1100; J1650; J1815; Q9967

== ENCOUNTER → 2023-06-12 | Outpatient (CLI) | payer MEDICARE, MEDICAID ==
[~2023-06-12] MED LIST changes: +AMOXICILLIN 8751 TAB PO; +ATARAX 25MG25 MG/TAB PO; +BIOFREEZE 0.2%-1 GE1 TOP; +CLARITIN 1010 MG/TAB PO; +CLOZAPINE50 MG PO; +CLOZARIL25 MG PO; +COLACE 100100 MG/CAP PO; +FLEXERIL5 MG PO; +GERI-TUSSI100 MG/5 M PO; +KLOR-CON M1010 MEQ PO; +MOTRIN 800800 MG/TAB PO; +MUCUS RELIEF1200 MG PO; +NORCO 325 MG-51 TAB PO; +PREDNISONE10 MG PO; +PROAIR HFA0.09 MG/AC IH; +RISPERDAL 0.5M0.5 MG PO; +ZOLOFT 50MG50 MG PO
== END ==
LOC: COL.RAD 07:43
DX: M48.062 Spinal stenosis, lumbar region with neurogenic claudication (principal)

== ENCOUNTER → 2023-06-27 | Outpatient (CLI) | payer MEDICARE, MEDICAID ==
[~2023-06-27] MED LIST changes: +Albuterol 0.083% Neb Soln 2.5 MG/3 ML UD IH ONE; +Methacholine Vial A (Clear Label Base-Cntrl) IH ONE; +Methacholine Vial B (Red Label) 0.0625 MG/ML 3 ML VIAL.NEB IH ONE; +Methacholine Vial C (Orange Label) 0.25 MG/ML 3 ML VIAL.NEB IH ONE; +Methacholine Vial D (Yellow Label) 1 MG/ML 3 ML VIAL.NEB IH ONE; +Methacholine Vial E (Green Label) 4 MG/ML 3 ML VIAL.NEB IH ONE; +Methacholine Vial F (Blue Label) 16 MG/ML 3 ML VIAL.NEB IH ONE
== END ==
LOC: COL.VAS 08:02
DX: R06.02 Shortness of breath (principal)
CPT/HCPCS: J7674

== ENCOUNTER 2023-07-03 15:14 | Inpatient (IN) | payer MEDICARE, MEDICAID ==
[~2023-07-03] VITALS: Ht 152.4 cm; Wt 135.8 kg
[2023-07-03] VITALS (255 sets, daily range): BP systolic 116–117; BP diastolic 80–82; PULSE 86–87; TEMP 98.8–101.3; O2SAT 74–96
[~2023-07-03 15:14] MED LIST changes: -Albuterol 0.083% Neb Soln 2.5 MG/3 ML UD IH ONE; -Methacholine Vial A (Clear Label Base-Cntrl) IH ONE; -Methacholine Vial B (Red Label) 0.0625 MG/ML 3 ML VIAL.NEB IH ONE; -Methacholine Vial C (Orange Label) 0.25 MG/ML 3 ML VIAL.NEB IH ONE; -Methacholine Vial D (Yellow Label) 1 MG/ML 3 ML VIAL.NEB IH ONE; -Methacholine Vial E (Green Label) 4 MG/ML 3 ML VIAL.NEB IH ONE; -Methacholine Vial F (Blue Label) 16 MG/ML 3 ML VIAL.NEB IH ONE
[2023-07-03 15:41] LABS: BASO % 0.4 % (0.0-2.0); EOS % 0.4 % (0.0-4.0); GRAN # 9.1 K/mm3 (1.4-6.5); GRAN % 80.1 % (42.2-75.2); HEMATOCRIT 44.6 % (42.0-52.0); HEMOGLOBIN 15.3 g/dl (13.5-18.0); LYMPH # 1.2 K/mm3 (1.2-3.4); LYMPH % 10.4 % (20.0-51.0); MEAN CELL VOLUME 94 fl (80.0-100.0); MEAN CORPUSCULAR HEMOGLOBIN 32 pg (27-31); MEAN CORPUSCULAR HGB CONC 34 g/dl (33.0-37.0); MEAN PLATELET VOLUME 9.3 fl (7.4-10.4); MONO # 0.9 K/mm3 (0.1-0.6); MONO % 7.8 % (1.7-9.3); PLATELET COUNT 136 K/mm3 (130-400); RED BLOOD COUNT 4.77 M/mm3 (4.20-5.60); REDCELL DISTRIBUTION WIDTH-CV 13.8 % (11.5-14.5)
[2023-07-03] MEDS ORDERED: methylPREDNISolone Sod Succ 125 MG/2 ML VIAL IV ONE (15:45)
[2023-07-03] MEDS ORDERED: Albuterol/Ipratropium 3 MG-0.5 MG/3 ML Neb Soln IH ONE (15:45)
[2023-07-03 16:04] LABS: ALBUMIN 3.4 g/dL (3.4-4.8); BILIRUBIN,TOTAL 1.6 mg/dL (0.2-1.2); CREATININE, serum 1.17 mg/dL (0.72-1.25); POTASSIUM 3.9 mEq/L (3.5-4.5); TOTAL PROTEIN 6.9 g/dl (6.2-8.1)
[2023-07-03] MEDS ORDERED: Polyethylene Glycol 3350 17 GM PDS PO PRN (18:45)
[2023-07-03] MEDS ORDERED: Acetaminophen 500 MG TAB PO PRN (18:45)
[2023-07-03] MEDS ORDERED: Ondansetron 4 MG/2 ML VIAL IV PRN (18:45)
--- NOTE | 2023-07-03 19:03 | NUR ---
PT'S SON LORETO CALLED TO CHECK ON PT'S CONDITION. SON'S NEW PHONE NUMBER: [phone]
[2023-07-03] MEDS ORDERED: dexAMETHasone 10 MG/ML VIAL IV SCH (19:15)
[2023-07-03] MEDS ORDERED: Albuterol/Ipratropium 3 MG-0.5 MG/3 ML Neb Soln IH PRN (19:15)
[2023-07-03] MEDS ORDERED: LORazepam 1 MG TAB PO PRN (19:15)
[2023-07-03] MEDS ORDERED: Cyclobenzaprine 10 MG TAB PO PRN (19:15)
[2023-07-03] MEDS ORDERED: Furosemide 100 MG/10 ML VIAL IV ONE (19:15)
[2023-07-03] MEDS ORDERED: guaiFENesin Oral Soln 200 MG/10 ML UD PO PRN (19:15)
[2023-07-03] MEDS ORDERED: Albuterol/Ipratropium 3 MG-0.5 MG/3 ML Neb Soln IH SCH (20:00)
[2023-07-03] MEDS ORDERED: Vancomycin 1.5 GM,Special Dose/Pharmacy Prepared 1.5 GM in NS 250 ML IV SCH (21:00)
[2023-07-03] MEDS ORDERED: Prazosin 1 MG CAP PO SCH (21:00)
[2023-07-03] MEDS ORDERED: Gabapentin 400 MG CAP PO SCH (21:00)
[2023-07-03] MEDS ORDERED: Doxepin 25 MG CAP PO SCH (21:00)
[2023-07-03] MEDS ORDERED: traZODone 100 MG TAB PO SCH (21:00)
[2023-07-03] MEDS ORDERED: risperiDONE 0.5 MG TAB PO SCH (21:00)
[2023-07-04] VITALS (382 sets, daily range): BP systolic 99–158; BP diastolic 66–88; PULSE 79–86; TEMP 97.4–98.1; O2SAT 72–97
[2023-07-04] MEDS ORDERED: NS 50 ML IV SCH (00:04)
[2023-07-04] MEDS ORDERED: Iohexol 300 - 100 ML VIAL IV ONE (00:04)
--- NOTE | 2023-07-04 02:58 | NUR ---
patient lying in bed, alert and oriented x3, slightly drowsy. pt denies chest pain and reports feeling slightly short of breath. reports pain rated 7/10 in back and right epigastric/rib cage, per request norco given. pt expressed feelign anxious, per request lorazepam given. IV in RF infiltrated, discontinued, new IV placed in LW is patent, site is clean dry and intact. per orders, saavedra catheter 16 tanzanian inserted using sterile technique, balloon filled with 10cc NS, pericare provided. bipap in place. pt has no further needs, questions, or concerns at this time. fall precautions in place, call light within reach. will continue to monitor.
[2023-07-04 04:55] LABS: BASO % 0.2 % (0.0-2.0); GRAN # 9.7 K/mm3 (1.4-6.5); GRAN % 87.4 % (42.2-75.2); HEMATOCRIT 40.7 % (42.0-52.0); HEMOGLOBIN 14.3 g/dl (13.5-18.0); MEAN CELL VOLUME 92 fl (80.0-100.0); MEAN CORPUSCULAR HEMOGLOBIN 32 pg (27-31); MEAN CORPUSCULAR HGB CONC 35 g/dl (33.0-37.0); MEAN PLATELET VOLUME 9.3 fl (7.4-10.4); MONO # 0.3 K/mm3 (0.1-0.6); MONO % 2.9 % (1.7-9.3); PLATELET COUNT 145 K/mm3 (130-400); RED BLOOD COUNT 4.43 M/mm3 (4.20-5.60); REDCELL DISTRIBUTION WIDTH-CV 13.4 % (11.5-14.5)
[2023-07-04 05:10] LABS: CREATININE, serum 1.1 mg/dL (0.72-1.25); MAGNESIUM 1.8 mg/dL (1.6-2.6); POTASSIUM 3.9 mEq/L (3.5-4.5)
[2023-07-04] MEDS ORDERED: Folic Acid 1 MG TAB PO SCH (09:00)
[2023-07-04] MEDS ORDERED: Sertraline 50 MG TAB PO SCH (09:00)
[2023-07-04] MEDS ORDERED: Sertraline 100 MG TAB PO SCH (09:00)
[2023-07-04] MEDS ORDERED: Patient's Own Medication Item PO SCH (10:10)
[2023-07-04] MEDS ORDERED: Furosemide 40 MG/4 ML VIAL IV SCH (10:30)
[2023-07-04 11:08] LABS: COLLECTION METHOD CLEAN CATCH
[2023-07-04 11:40] LABS: URINE APPEARANCE TURBID (CLEAR/HAZY); URINE BLOOD 3+ (NEGATIVE); URINE COLOR YELLOW (YELLOW); URINE GLUCOSE NEGATIVE (NEGATIVE); URINE KETONE TRACE (NEGATIVE); URINE NITRATE NEGATIVE (NEGATIVE); URINE PROTEIN(semi-quant) TRACE (NEGATIVE); URINE UROBILINOGEN 0.2 E.U/dL (0.2-1.0)
[2023-07-04 12:05] LABS: SQUAMOUS EPITHELIAL 0-2 /hpf (0-10); URINE BACTERIA MANY /hpf (NONE SEEN); URINE RBC >50 /hpf (0-2); URINE WBC 0-2 /hpf (0-2)
--- NOTE | 2023-07-04 12:58 | NUR ---
PATIENT IS ALERT AND ORIENTED AND SATTING WNL ON 5L NC. PATIENT WILL BE TRANSFERRING TO MEDICAL. PATIENT DOES NOT HAVE ANY CURRENT CONCERNS OR NEEDS. BED IN LOW POSITION AND CALL LIGHT WITHIN REACH.
--- NOTE | 2023-07-04 13:16 | NUR ---
PATIENT TRANSFERRED TO MEDICAL FLOOR. PATIENT REPORT CALLED TO RNCRISTINA, PRIOR TO TRANSFER. PATIENT ALERT AND ORIENTED ON 5L NC. PATIENT NOT IN DISTRESS.
--- NOTE | 2023-07-04 13:58 | NUR ---
Behavioral Psychologist met with patient to discuss discharge planning. Patient lives at [facility] and was not sure who his primary care provider would be. Patient stated he mostly uses a wheelchair for ambulation and gets assistance with ADLS from staff at [facility]. Patient has DP- listing his son, Rafael (ph#[phone]). SHADIA sent clinical updates to Chacho at [facility] via secure email. Discharge Plan: [facility]
[2023-07-05] VITALS (777 sets, daily range): BP systolic 100–122; BP diastolic 65–79; PULSE 71–79; TEMP 97.7–98.6; O2SAT 88–98
--- NOTE | 2023-07-05 00:44 | NUR ---
patient lying in bed, alert and oriented x4. pt denies chest pain and shortness of breath. IV in LW is patent, site is clean dry and intact. panus breakdown and BLE nonpitting edema, small general bruising on extremities noted. pt has no further needs, questions or concerns at this time. fall precautions in place, call light within reach. will continue to monitor.
--- NOTE | 2023-07-05 08:00 | NUR ---
PATIENT ASLEEP, RESTING IN BED, HE AROUSES TO VOICE WITH TOUCH TO HIS ARM. PATIENT DENIES ANY NEEDS OR COMPLAINTS AT THIS TIME, FALL PRECAUTIONS IN PLACE.
[2023-07-05] MEDS ORDERED: predniSONE 20 MG TAB PO SCH (09:00)
--- NOTE | 2023-07-05 10:31 | NUR ---
RESPIRATORY INFORMED STAT ABG ORDERED FOR NOW AND THEN PATIENT TO TRANSFER TO THE UNIT PER PERSONAL SECURITY SPECIALIST DR LEAHY
--- NOTE | 2023-07-05 10:39 | NUR ---
ICU STATED BEDSIDE SHIFT REPORT WILL DO, HOWEVER SHE INFORMED OF PATIENT CURRENT STATUS.
--- NOTE | 2023-07-05 10:43 | NUR ---
RT AT [facility] FOR ABG
[2023-07-05] MEDS ORDERED: Naloxone 0.4 MG/ML VIAL IV ONE (10:45)
--- NOTE | 2023-07-05 10:51 | NUR ---
LAB AT BEDSIDE THEN PATIENT TO TRANSFER TO ICU
[2023-07-05 10:52] LABS: ARTERIAL BLD GAS O2 SATURATION 91.8 % (92-100); ARTERIAL BLD GAS TCO2 CT 27.4; ARTERIAL BLOOD GAS BASE EXCESS 0.8 (-2-2); ARTERIAL BLOOD GAS PCO2 43.8 mmHg (35-45); ARTERIAL BLOOD GAS pH 7.39 (7.35-7.45)
--- NOTE | 2023-07-05 11:05 | NUR ---
Pt arrived via bed to room 5. Pt is alert and oriented x4 and on 5L O2 via NC. Vital signs are stable. Bedside report recieved form DC Carter. Pt has some exoriation between skin folds, interdry in place. Cortez in place with clear, yellow urine. PIV to left wrist. Orders from Dr. Loo to get addional access or have PICC placed. Assessment completed. Fall precuations in place. Bed alarm activated. Call light within reach. Will continue with POC.
[2023-07-05 11:17] LABS: BASO % 0.3 % (0.0-2.0); GRAN # 11.6 K/mm3 (1.4-6.5); GRAN % 84.1 % (42.2-75.2); HEMATOCRIT 39.6 % (42.0-52.0); HEMOGLOBIN 13.9 g/dl (13.5-18.0); LYMPH # 1.5 K/mm3 (1.2-3.4); LYMPH % 10.8 % (20.0-51.0); MEAN CELL VOLUME 92 fl (80.0-100.0); MEAN CORPUSCULAR HEMOGLOBIN 32 pg (27-31); MEAN CORPUSCULAR HGB CONC 35 g/dl (33.0-37.0); MEAN PLATELET VOLUME 9.4 fl (7.4-10.4); MONO # 0.5 K/mm3 (0.1-0.6); MONO % 3.9 % (1.7-9.3); PLATELET COUNT 163 K/mm3 (130-400); RED BLOOD COUNT 4.31 M/mm3 (4.20-5.60); REDCELL DISTRIBUTION WIDTH-CV 13.3 % (11.5-14.5)
[2023-07-05 11:39] LABS: CALCIUM 8.9 mg/dL (8.4-10.2); CREATININE, serum 0.97 mg/dL (0.72-1.25); MAGNESIUM 1.9 mg/dL (1.6-2.6)
--- NOTE | 2023-07-05 11:46 | NUR ---
craft worker was notified patient will be transferred to the ICU. SW updated [facility] on patient transferring to ICU. SHADIA secure emailed clincial updates to [facility]. SW attempted to contact patient's son with two different numbers in the chart, P# [phone] and P# [phone], no answer at either number. SW left voicemail. Discharge plan: Return to [facility]
[2023-07-05 11:47] LABS: POTASSIUM 3.5 mEq/L (3.5-4.5)
--- NOTE | 2023-07-05 11:56 | NUR ---
PATIENT TRANSFERED TO ICU 5. REPORT GIVEN TO HEAD REFRIGERATION ENGINEER AT BEDSIDE. PATIENT WAS AWAKE ALERT AND ORIENTED ON TIME OF ARRIVAL. PATIENTS HOME MEDICATION GIVEN TO HEAD REFRIGERATION ENGINEER.
--- NOTE | 2023-07-05 12:49 | NUR ---
Chacho Perez states that patient's son, Redd is traveling home from a [place] Trip and confirmed his number is [phone].
--- NOTE | 2023-07-05 12:51 | NUR ---
Patient's durable power of management intern for health care is in the electronic record, naming Redd.
--- NOTE | 2023-07-05 20:18 | NUR ---
PER REPORT PT IS STABLE ON ROUNDS. CONTINUE PLAN OF CARE.
[2023-07-06] VITALS (719 sets, daily range): BP systolic 121–145; BP diastolic 74–101; PULSE 64–79; TEMP 97.5–98.4; O2SAT 86–100
--- NOTE | 2023-07-06 06:52 | NUR ---
OXYGEN WEANED FROM 5 L TO 3 L PER NC. HIS BASELINE AT HOME IS 2L/MIN. PT DID NOT ASK FOR ANY ADDITIONAL MEDICATION AFTER HIS EVENING MEDICATIONS WERE GIVEN. REMAINS STABLE ON ROUNDS. NO SIGN OF DISTRESS AT THIS TIME. CONTINUE PLAN OF CARE.
--- NOTE | 2023-07-06 07:00 | NUR ---
Report received from DC Badillo. Reviewed overnight events. Pt had uneventful night and slept most of the night. Pt is resting with eyes closed and 5L via NC. Pt call light within reach. Fall precuations in place. Will continue with POC.
[2023-07-06] MEDS ORDERED: Doxepin 25 MG CAP PO PRN (08:54)
[2023-07-06] MEDS ORDERED: traZODone 100 MG TAB PO PRN (08:54)
[2023-07-06] MEDS ORDERED: Acetaminophen 500 MG TAB PO PRN (09:00)
[2023-07-06] MEDS ORDERED: predniSONE 20 MG TAB PO SCH (09:00)
[2023-07-06 09:10] LABS: HEMATOCRIT 40.5 % (42.0-52.0); HEMOGLOBIN 14.3 g/dl (13.5-18.0); MEAN CELL VOLUME 89 fl (80.0-100.0); MEAN CORPUSCULAR HEMOGLOBIN 32 pg (27-31); MEAN CORPUSCULAR HGB CONC 35 g/dl (33.0-37.0); MEAN PLATELET VOLUME 9.3 fl (7.4-10.4); PLATELET COUNT 171 K/mm3 (130-400); RED BLOOD COUNT 4.54 M/mm3 (4.20-5.60); REDCELL DISTRIBUTION WIDTH-CV 13.2 % (11.5-14.5)
[2023-07-06 09:25] LABS: CREATININE, serum 0.78 mg/dL (0.72-1.25); MAGNESIUM 1.9 mg/dL (1.6-2.6); POTASSIUM 3.3 mEq/L (3.5-4.5)
[2023-07-06] MEDS ORDERED: *Potassium Replacement Protocol MC SCH (09:30)
[2023-07-06] MEDS ORDERED: Potassium Bicarbonate/Citrate 20 MEQ Effervescent TAB PO SCH (09:30)
[2023-07-06 09:35] LABS: BAND 2 % (0-10); LYMPHOCYTE 29 % (20.0-51.0); METAMYELOCYTE 1 % (0-0); NEUTROPHILS 66 % (42.0-75.2); PLATELET ESTIMATE NORMAL (NORMAL)
[2023-07-06] MEDS ORDERED: Insulin Lispro (HumaLOG) SQ SCH (12:00)
--- NOTE | 2023-07-06 13:00 | NUR ---
Patient to room 357 from the ICU by bed. A&Ox3. VSS 3L NC O2. IV CDI. Cortez intact. Denies pain and discomfort. Nurse oriented the patient to location, room and call light. Patient positioned for comfort. Lunch ordered. Call light within reach. Bed alarm on
--- NOTE | 2023-07-06 13:15 | NUR ---
Report called to DC Turner. All questions answered. Pt transferred to room 357 via bed. SUPERVISOR QUILTING in room at arrival. Pt handed call light and phone. DC Turner notified that pt arrived on floor.
--- NOTE | 2023-07-06 14:00 | NUR ---
All documentation and meds adminiistered reviewed by this RN.
[2023-07-06] MEDS ORDERED: Formoterol Neb Soln 20 MCG/2 ML UD IH SCH (19:00)
[2023-07-06] MEDS ORDERED: Budesonide Neb Susp 0.5 MG/2 ML AMP IH SCH (19:00)
--- NOTE | 2023-07-07 02:50 | NUR ---
RT IN ROOM AT 0209 TO GIVE PT BREATHING TX. PT FOUND WITH NC OUT OF NOSE SATTING 77%. OM APPLIED AT 7 LPM, O2 SAT NOW 90%. RN NOTIFIED.
[2023-07-07 03:27] VITALS: BP 140/84; PULSE 61; TEMP 97.4
--- NOTE | 2023-07-07 07:00 | NUR ---
PATIENT ASLEEP, RESTING IN BED. PATIENTS RESPIRATIONS WNL. CALL LIGHT WTIHIN REACH, FALL PRECAUTIONS IN PLACE.
[2023-07-07 07:04] VITALS: BP 131/85; PULSE 60; TEMP 99.6
[2023-07-07] MEDS ORDERED: Sennosides/Docusate 8.6-50 MG TAB PO SCH (09:58)
--- NOTE | 2023-07-07 10:40 | NUR ---
SHADIA faxed updated clinical information to [facility] System.
--- NOTE | 2023-07-07 11:00 | NUR ---
PATIENT AWAKE AND ALERT, SITTING UP IN BED. CALL LIGTH WITHIN REACH, FALL PRECAUTIOSN INPLACE. PATIENT DENIES ANY NEEDS OR COMPLAINTS AT THIS TIME.
[2023-07-07 11:13] VITALS: BP 134/89; PULSE 68; TEMP 97.5
[2023-07-07] MEDS ORDERED: Potassium Bicarbonate/Citrate 20 MEQ Effervescent TAB PO SCH (14:30)
[2023-07-07 15:28] VITALS: BP 126/82; PULSE 65; TEMP 98.1
--- NOTE | 2023-07-07 16:45 | NUR ---
CHADE ASLEEP, RESTING IN BED. PATIENT AROUSES EASILY TO NAME. CALL LIGHT WTIHIN REACH. JACKY HAS NO COMPLAINTS AT THIS TIME.
[2023-07-07 21:03] VITALS: BP 121/78; PULSE 66; TEMP 97.6
[2023-07-08] VITALS (7 sets, daily range): BP systolic 112–133; BP diastolic 75–88; PULSE 63–75; TEMP 97–99.5
[2023-07-08 08:20] LABS: HEMATOCRIT 43.9 % (42.0-52.0); HEMOGLOBIN 15.3 g/dl (13.5-18.0); MEAN CELL VOLUME 91 fl (80.0-100.0); MEAN CORPUSCULAR HEMOGLOBIN 32 pg (27-31); MEAN CORPUSCULAR HGB CONC 35 g/dl (33.0-37.0); MEAN PLATELET VOLUME 8.9 fl (7.4-10.4); PLATELET COUNT 124 K/mm3 (130-400); RED BLOOD COUNT 4.82 M/mm3 (4.20-5.60); REDCELL DISTRIBUTION WIDTH-CV 13.6 % (11.5-14.5)
[2023-07-08 08:46] LABS: CALCIUM 8.8 mg/dL (8.4-10.2); CREATININE, serum 0.75 mg/dL (0.72-1.25); POTASSIUM 3.9 mEq/L (3.5-4.5)
[2023-07-08 08:51] LABS: BAND 1 % (0-10); LYMPHOCYTE 34 % (20.0-51.0); NEUTROPHILS 64 % (42.0-75.2); PLATELET ESTIMATE DECREASED (NORMAL)
[2023-07-08] MEDS ORDERED: Polyethylene Glycol 3350 17 GM PDS PO SCH (09:00)
[2023-07-08] MEDS ORDERED: Lidocaine 4% Topical Patch TP SCH (09:00)
--- NOTE | 2023-07-08 14:14 | NUR ---
sprinkler worker emailed clinical updates to Chacho at [facility]. SHADIA recieved a call from [facility] [phone] inquiring about the discharge plan. SHADIA provided pt will return to LTC. Discharge Plan: return to [facility]
--- NOTE | 2023-07-08 22:33 | NUR ---
Shift assessment complete. Patient is reporting continued pain in his lower back and right leg, states that pain in legs alternated between which leg is affected. Currently on 4.5L O2 via nasal cannula. Denies any nausea or chest pain. Call light is within reach and bed is locked and in low position.
[2023-07-09 03:29] VITALS: BP 122/80; PULSE 70; TEMP 97.6
[2023-07-09 06:57] LABS: HEMATOCRIT 41.6 % (42.0-52.0); HEMOGLOBIN 14.8 g/dl (13.5-18.0); MEAN CELL VOLUME 91 fl (80.0-100.0); MEAN CORPUSCULAR HEMOGLOBIN 32 pg (27-31); MEAN CORPUSCULAR HGB CONC 36 g/dl (33.0-37.0); MEAN PLATELET VOLUME 9.1 fl (7.4-10.4); PLATELET COUNT 153 K/mm3 (130-400); RED BLOOD COUNT 4.57 M/mm3 (4.20-5.60); REDCELL DISTRIBUTION WIDTH-CV 13.8 % (11.5-14.5)
[2023-07-09 07:15] LABS: CALCIUM 8.6 mg/dL (8.4-10.2); CREATININE, serum 0.76 mg/dL (0.72-1.25)
[2023-07-09 07:39] VITALS: BP 117/73; PULSE 58; TEMP 97.9
[2023-07-09 07:43] LABS: EOSINOPHIL 4 % (0-4); LYMPHOCYTE 28 % (20.0-51.0); NEUTROPHILS 67 % (42.0-75.2); PLATELET ESTIMATE NORMAL (NORMAL)
--- NOTE | 2023-07-09 10:49 | NUR ---
farmworker bulbs attended clinical rounding and was informed pt is almost down to baseline for oxygen and needs his WBC to decrease more. SHADIA emailed updates to Chacho at [facility]. SHADIA completed IM from Medicare with pt. He verbalized understanding and was provided a copy. Original in chart. Discharge Plan: return to [facility]
[2023-07-09 11:30] VITALS: BP 133/88; PULSE 67; TEMP 97.5
[2023-07-09] MEDS ORDERED: Albuterol/Ipratropium 3 MG-0.5 MG/3 ML Neb Soln IH SCH (14:00)
[2023-07-09 15:45] VITALS: BP 132/89; PULSE 64; TEMP 97.6
--- NOTE | 2023-07-09 17:54 | NUR ---
14:15- Pt. A&Ox4. Assisted with a shower and gown change, pt. tolerated well. Pt. now resting in bed. No complaints of pain at this time. Bed in lowest position. Call light within reach.
[2023-07-09 19:33] VITALS: BP 122/81; PULSE 65; TEMP 97.6
--- NOTE | 2023-07-09 20:16 | NUR ---
Shift assessment complete. Patient is laying in bed watching TV. Reports lower back pain 7/10. States he is ready to go back to his facility and is starting to feel better. Call light is within reach, bed locked and in low position.
[2023-07-09 23:09] VITALS: BP 142/93; PULSE 77; TEMP 98.4
[2023-07-10 03:28] VITALS: BP 127/85; PULSE 60; TEMP 98.3
[2023-07-10 07:37] VITALS: BP 135/90; PULSE 68; TEMP 97.4
[2023-07-10] MEDS ORDERED: TOPROL XL 50MG50 MG PO (09:45)
[2023-07-10] MEDS ORDERED: BLUE-EMU LIDOC1 EACH TP (09:48)
[2023-07-10 10:59] LABS: ALBUMIN 3.1 g/dL (3.4-4.8); BILIRUBIN,TOTAL 1.2 mg/dL (0.2-1.2); CREATININE, serum 0.83 mg/dL (0.72-1.25); POTASSIUM 3.7 mEq/L (3.5-4.5); TOTAL PROTEIN 6.4 g/dl (6.2-8.1)
[2023-07-10 11:31] VITALS: BP 130/85; PULSE 73; TEMP 97.4
--- NOTE | 2023-07-10 13:17 | NUR ---
cargo worker attended clinical rounding and was informed pt can discharge to [facility] today. SHADIA emailed discharge orders to Chacho. Chacho does not want skilled orders. SHADIA spoke with Argenis at [facility] and provided the discharge plan for today. Chacho at [facility] confirmed a discharge time of 1pm. DC Garcia notified. Discharge Plan: return to [facility]
== END 2023-07-10 13:37 | DRG 177 ==
LOC: COL.ER 15:14 → IMCU 16:16 → MEDICAL 16:16 → ICU 07-05 11:16 → MEDICAL 07-06 09:06
PROVIDERS: Internal Medicine; Personal Emergency Response Attendant; Physician Assistant; ADMIT Internal Medicine
PROC: 5A09457 Assistance with Respiratory Ventilation, 24-96 Consecutive Hours, Continuous Positive Airway Pressure (ICD-10-PCS; principal; 2023-07-03)
DX: J69.0 Pneumonitis due to inhalation of food and vomit (principal); G93.41 Metabolic encephalopathy; J96.01 Acute respiratory failure with hypoxia; I50.23 Acute on chronic systolic (congestive) heart failure; J44.0 Chronic obstructive pulmonary disease with (acute) lower respiratory infection; J44.1 Chronic obstructive pulmonary disease with (acute) exacerbation; F11.20 Opioid dependence, uncomplicated; I48.0 Paroxysmal atrial fibrillation; I11.0 Hypertensive heart disease with heart failure; E78.5 Hyperlipidemia, unspecified; F20.9 Schizophrenia, unspecified; G89.4 Chronic pain syndrome; Z20.822 Contact with and (suspected) exposure to COVID-19; I45.10 Unspecified right bundle-branch block; F41.9 Anxiety disorder, unspecified; F41.0 Panic disorder [episodic paroxysmal anxiety]; R16.1 Splenomegaly, not elsewhere classified; M54.30 Sciatica, unspecified side; G47.00 Insomnia, unspecified; R73.9 Hyperglycemia, unspecified; E87.6 Hypokalemia; R53.81 Other malaise; F10.90 Alcohol use, unspecified, uncomplicated; K76.0 Fatty (change of) liver, not elsewhere classified; K59.00 Constipation, unspecified; N28.9 Disorder of kidney and ureter, unspecified; M54.50 Low back pain, unspecified; E66.01 Morbid (severe) obesity due to excess calories; Z99.81 Dependence on supplemental oxygen; Z79.82 Long term (current) use of aspirin; Z79.899 Other long term (current) drug therapy; Z87.891 Personal history of nicotine dependence; Z90.89 Acquired absence of other organs; Z23 Encounter for immunization; Z68.36 Body mass index [BMI] 36.0-36.9, adult
CPT/HCPCS: J1100; J1650; J1815; J1940; J1956; J2310; J2405; J2543; J2919; J3370; J7050; J7512; Q3014; Q9967

== ENCOUNTER → 2023-07-28 | Outpatient (CLI) | payer MEDICARE, MEDICAID ==
[~2023-07-28] MED LIST changes: +BLUE-EMU LIDOC1 EACH TP
[2023-07-28 15:50] LABS: ALBUMIN 3.4 g/dL (3.4-4.8); CALCIUM 8.9 mg/dL (8.4-10.2); CREATININE, serum 0.68 mg/dL (0.72-1.25); POTASSIUM 4.5 mEq/L (3.5-4.5); THYROID STIMULATING HORMONE 3.639 uIU/mL (0.350-4.940); TOTAL PROTEIN 6.4 g/dl (6.2-8.1)
== END ==
LOC: ZCOL.LAB 15:02
PROVIDERS: Family Medicine
DX: E78.5 Hyperlipidemia, unspecified (principal); E55.9 Vitamin D deficiency, unspecified; E03.9 Hypothyroidism, unspecified

== ENCOUNTER → 2023-10-20 | Outpatient (CLI) | payer OTHER, MEDICAID ==
[2023-10-20 16:02] LABS: BASO % 0.3 % (0.0-2.0); EOS # 0.1 K/mm3 (0.0-0.7); EOS % 1.1 % (0.0-4.0); GRAN % 67.5 % (42.2-75.2); HEMATOCRIT 50.4 % (42.0-52.0); HEMOGLOBIN 16.9 g/dl (13.5-18.0); LYMPH # 2.1 K/mm3 (1.2-3.4); LYMPH % 23.6 % (20.0-51.0); MEAN CELL VOLUME 102 fl (80.0-100.0); MEAN CORPUSCULAR HEMOGLOBIN 34 pg (27-31); MEAN CORPUSCULAR HGB CONC 34 g/dl (33.0-37.0); MEAN PLATELET VOLUME 9.5 fl (7.4-10.4); MONO # 0.6 K/mm3 (0.1-0.6); MONO % 7.2 % (1.7-9.3); PLATELET COUNT 143 K/mm3 (130-400); RED BLOOD COUNT 4.95 M/mm3 (4.20-5.60); REDCELL DISTRIBUTION WIDTH-CV 12.9 % (11.5-14.5)
== END ==
LOC: ZCOL.LAB 13:40
PROVIDERS: Family Medicine
DX: F20.9 Schizophrenia, unspecified (principal)

== ENCOUNTER 2023-11-14 12:22 | Inpatient (IN) | payer MEDICARE, MEDICAID ==
[2023-11-14] VITALS (466 sets, daily range): BP systolic 104–126; BP diastolic 61–74; PULSE 70; TEMP 98.1–98.3; O2SAT 82–99
[~2023-11-14] VITALS: Ht 172.7 cm; Wt 142.2 kg
[~2023-11-14 12:22] MED LIST changes: -DULCOLAX STOOL100 MG PO; +MUCINEX DM 30 M1 TE1 PO; -MUCUS RELIEF1200 MG PO; +TYLENOL 500MG500 MG PO
[2023-11-14] MEDS ORDERED: NS 1,000 ML IV ONE (12:30)
[2023-11-14 13:05] LABS: ARTERIAL BLD GAS O2 SATURATION 94.7 % (92-100); ARTERIAL BLD GAS TCO2 CT 31.5; ARTERIAL BLOOD GAS BASE EXCESS 3.1 (-2-2); ARTERIAL BLOOD GAS HCO3 29.9 meq/L (22-26); ARTERIAL BLOOD GAS PCO2 53.2 mmHg (35-45); ARTERIAL BLOOD GAS PO2 70.4 mmHg (80-100); ARTERIAL BLOOD GAS pH 7.37 (7.35-7.45)
[2023-11-14 13:21] LABS: ALANINE AMINOTRANSFERASE 26 U/L (0-55); ALBUMIN 3.5 g/dL (3.4-4.8); ALKALINE PHOSPHATASE 92 U/L (40-150); ANION GAP 13 mmol/L (7-16); AST,SGOT 27 U/L (5-34); BILIRUBIN,TOTAL 2.4 mg/dL (0.2-1.2); BLOOD UREA NITROGEN 14 mg/dL (8-26); C-REACTIVE PROTEIN 23.67 mg/dL (0.00-0.50); CALCIUM 9.8 mg/dL (8.4-10.2); CHLORIDE 103 mEq/L (98-107); CREATININE, serum 0.76 mg/dL (0.72-1.25); GLUCOSE 154 mg/dL (70-99); POTASSIUM 4.7 mEq/L (3.5-4.5); SODIUM 142 mEq/L (136-145); TOTAL PROTEIN 7.1 g/dl (6.2-8.1)
[2023-11-14 13:30] LABS: TROPONIN-I < 0.010 ng/mL (0.00-0.033)
[2023-11-14 14:02] LABS: HEMATOCRIT 47.4 % (42.0-52.0); HEMOGLOBIN 16.5 g/dl (13.5-18.0); MEAN CELL VOLUME 99 fl (80.0-100.0); MEAN CORPUSCULAR HEMOGLOBIN 34 pg (27-31); MEAN CORPUSCULAR HGB CONC 35 g/dl (33.0-37.0); MEAN PLATELET VOLUME 9.1 fl (7.4-10.4); PLATELET COUNT 108 K/mm3 (130-400); REDCELL DISTRIBUTION WIDTH-CV 12.8 % (11.5-14.5)
[2023-11-14] MEDS ORDERED: HYDROcodone/Acetaminophen 7.5-325 MG TAB PO ONE (14:15)
[2023-11-14 14:31] LABS: BAND 3 % (0-10); EOSINOPHIL 1 % (0-4); LYMPHOCYTE 7 % (20.0-51.0); NEUTROPHILS 88 % (42.0-75.2)
[2023-11-14 14:32] LABS: PLATELET ESTIMATE DECREASED (NORMAL)
[2023-11-14] MEDS ORDERED: Acetaminophen 325 MG TAB PO PRN (15:00)
[2023-11-14] MEDS ORDERED: Ondansetron 4 MG/2 ML VIAL IV PRN (15:00)
[2023-11-14] MEDS ORDERED: Polyethylene Glycol 3350 17 GM PDS PO PRN (15:00)
[2023-11-14] MEDS ORDERED: Docusate Sodium 100 MG CAP PO PRN (15:00)
[2023-11-14] MEDS ORDERED: Furosemide 40 MG/4 ML VIAL IV ONE (15:45)
[2023-11-14] MEDS ORDERED: Doxycycline Hyclate 100 MG in NS 150 ML IV SCH (15:45)
[2023-11-14] MEDS ORDERED: dexAMETHasone 10 MG/ML VIAL IV SCH (15:45)
[2023-11-14 15:48] LABS: ARTERIAL BLD GAS O2 SATURATION 95.7 % (92-100); ARTERIAL BLD GAS TCO2 CT 30.5; ARTERIAL BLOOD GAS BASE EXCESS 1.5 (-2-2); ARTERIAL BLOOD GAS HCO3 28.8 meq/L (22-26); ARTERIAL BLOOD GAS PCO2 55.4 mmHg (35-45); ARTERIAL BLOOD GAS PO2 84.2 mmHg (80-100); ARTERIAL BLOOD GAS pH 7.33 (7.35-7.45)
[2023-11-14] MEDS ORDERED: Lidocaine 4% Topical Patch TP SCH ×2 (15:57→15:58)
[2023-11-14] MEDS ORDERED: Heparin 5,000 UNITS/ML 1 ML VIAL SQ SCH (16:00)
[2023-11-14 17:08] LABS: COLLECTION METHOD CLEAN CATCH
[2023-11-14 17:12] LABS: URINE APPEARANCE CLEAR (CLEAR/HAZY); URINE BLOOD NEGATIVE (NEGATIVE); URINE COLOR YELLOW (YELLOW); URINE GLUCOSE NEGATIVE (NEGATIVE); URINE KETONE NEGATIVE (NEGATIVE); URINE NITRATE NEGATIVE (NEGATIVE); URINE PROTEIN(semi-quant) NEGATIVE (NEGATIVE); URINE UROBILINOGEN 0.2 E.U/dL (0.2-1.0)
[2023-11-14] MEDS ORDERED: Budesonide Neb Susp 0.5 MG/2 ML AMP IH SCH (19:00)
[2023-11-14] MEDS ORDERED: Formoterol Neb Soln 20 MCG/2 ML UD IH SCH (19:00)
--- NOTE | 2023-11-14 19:46 | NUR ---
PT DENIES NEEDS AT THIS TIME.
[2023-11-14] MEDS ORDERED: Albuterol/Ipratropium 3 MG-0.5 MG/3 ML Neb Soln IH SCH (20:00)
[2023-11-14] MEDS ORDERED: Gabapentin 400 MG CAP PO SCH (21:00)
[2023-11-14] MEDS ORDERED: Prazosin 1 MG CAP PO SCH (21:00)
[2023-11-15] VITALS (538 sets, daily range): BP systolic 102–136; BP diastolic 61–82; PULSE 63–71; TEMP 97.5–98.2; O2SAT 84–100
[2023-11-15 04:14] LABS: HEMATOCRIT 42.5 % (42.0-52.0); HEMOGLOBIN 14.9 g/dl (13.5-18.0); MEAN CELL VOLUME 97 fl (80.0-100.0); MEAN CORPUSCULAR HEMOGLOBIN 34 pg (27-31); MEAN CORPUSCULAR HGB CONC 35 g/dl (33.0-37.0); MEAN PLATELET VOLUME 9.2 fl (7.4-10.4); PLATELET COUNT 102 K/mm3 (130-400); RED BLOOD COUNT 4.38 M/mm3 (4.20-5.60); REDCELL DISTRIBUTION WIDTH-CV 12.5 % (11.5-14.5)
[2023-11-15 04:29] LABS: CALCIUM 9.4 mg/dL (8.4-10.2); CREATININE, serum 0.8 mg/dL (0.72-1.25); POTASSIUM 3.8 mEq/L (3.5-4.5)
[2023-11-15 05:28] LABS: LYMPHOCYTE 2 % (20.0-51.0); METAMYELOCYTE 1 % (0-0); NEUTROPHILS 96 % (42.0-75.2); PLATELET ESTIMATE DECREASED (NORMAL)
--- NOTE | 2023-11-15 06:22 | NUR ---
PT WORE BIPAP UNTIL ABOUT 0400. PT WAS PLACED ON NC, BUT IS A MOUTH BREATHER. PT WAS PLACED ON OM TO MAINTAIN SATURATION GREATER THAN 88%. PT DID NOT ASK FOR FURTHER PAIN MEDICATION DURING THE NIGHT. PT SLEPT WELL. RESPIRATIONS EVEN AND UNLABORED. NO SIGN OF DISTRESS AT THIS TIME. CONTINUE PLAN OF CARE.
--- NOTE | 2023-11-15 07:13 | NUR ---
Patient seems to be resting with eyes closed, oxymask in place at 4 liters of oxygen, saturation at 91%, VSS. No concerns at this time.
[2023-11-15] MEDS ORDERED: LIORESAL 1010 MG/TAB PO (07:45)
[2023-11-15] MEDS ORDERED: KLONOPIN 1MG1 MG PO (07:52)
[2023-11-15] MEDS ORDERED: LEVAQUIN 750MG750 M1 PO (07:53)
[2023-11-15] MEDS ORDERED: ANTIVERT 25MG25 MG PO (07:54)
[2023-11-15] MEDS ORDERED: MIRALAX PA17 GM/Dose PO (07:56)
[2023-11-15] MEDS ORDERED: NEURONTIN600 MG/TAB PO (07:58)
[2023-11-15] MEDS ORDERED: NORCO 325 MG-7.1 TAB PO (07:59)
[2023-11-15] MEDS ORDERED: PREDNISONE10 MG PO (08:00)
[2023-11-15] MEDS ORDERED: ROCEPHIN VIA1 G/VIAL INJ (08:01)
[2023-11-15] MEDS ORDERED: Sertraline 100 MG TAB PO SCH (09:00)
[2023-11-15] MEDS ORDERED: Pantoprazole 40 MG in NS 10 ML IV SCH (09:00)
[2023-11-15] MEDS ORDERED: PULMICORT0.5 MG/2 M IH (10:39)
[2023-11-15] MEDS ORDERED: PREDNISONE20 MG PO (10:43)
[2023-11-15] MEDS ORDERED: KLONOPIN 0.5MG0.5 MG PO (10:43)
--- NOTE | 2023-11-15 10:55 | NUR ---
plant production worker met with patient to discuss discharge planning. Patient lives at [facility] in [place] in their skilled nursing care unit. Patient's son, Redd, Lito# [phone] is the DPOA-HC. PCP is Dr. Calhoun, patient reports his pharmacy is [facility]. Insurance is [employer] and [employer]. DME is oxygen and wheelchair. [facility] helps with all ADLS and transportation to and from appointments. SHADIA secure emailed updates to Chacho at [facility]. SHADIA was notified by Dr. Marcano patient is medically ready for discharge. SHADIA notified Chacho at [facility] whom is going to contact the social work professor with a discharge time. SHADIA secure emailed discharge orders to [facility]. Discharge plan: [facility]
--- NOTE | 2023-11-15 12:13 | NUR ---
sheet metal worker supervisor scheduled transportation for 130 pm for patient to return to [facility]. SW notified patient's nurse. Discharge plan: [facility]
--- NOTE | 2023-11-15 14:35 | NUR ---
Called report at 1330 to Ms. Parsons at [facility]. Updated Nurse Practitioner Reina Fuentes on condition and discharge. IV removed, no complications, saavedra removed with 10 ml of water from ballon, without complicaitons. Patient was stable, on 4 liters of oxygen per nasal cannula. Escorted to company vehicle for transport to [facility] with Rosa OLIVEIRA. Personal belongings gathers and discharge paperwork sent with patient. All questions answered at this time.
== END 2023-11-15 13:40 | disposition home or self-care (01) | DRG 189 ==
LOC: COL.ER 12:22 → ICU 14:05
PROVIDERS: Emergency Medicine; Physician Assistant; ADMIT Internal Medicine
DX: J96.21 Acute and chronic respiratory failure with hypoxia (principal); F11.20 Opioid dependence, uncomplicated; J44.1 Chronic obstructive pulmonary disease with (acute) exacerbation; I50.42 Chronic combined systolic (congestive) and diastolic (congestive) heart failure; J96.22 Acute and chronic respiratory failure with hypercapnia; K76.0 Fatty (change of) liver, not elsewhere classified; M54.40 Lumbago with sciatica, unspecified side; R29.6 Repeated falls; G89.4 Chronic pain syndrome; G47.00 Insomnia, unspecified; F41.9 Anxiety disorder, unspecified; F41.0 Panic disorder [episodic paroxysmal anxiety]; F20.9 Schizophrenia, unspecified; I45.10 Unspecified right bundle-branch block; Z20.822 Contact with and (suspected) exposure to COVID-19; F17.210 Nicotine dependence, cigarettes, uncomplicated; D69.6 Thrombocytopenia, unspecified; R53.81 Other malaise; E87.5 Hyperkalemia; I48.0 Paroxysmal atrial fibrillation; R35.0 Frequency of micturition; I11.0 Hypertensive heart disease with heart failure; Z87.01 Personal history of pneumonia (recurrent); Z99.81 Dependence on supplemental oxygen; Z90.89 Acquired absence of other organs; Z79.899 Other long term (current) drug therapy; Z79.82 Long term (current) use of aspirin; Z23 Encounter for immunization
CPT/HCPCS: A4314; J1100; J1644; J1940; J2470; J2543; J7030

== ENCOUNTER 2024-01-17 01:31 | Emergency (ER) | payer MEDICARE, MEDICAID ==
[~2024-01-17] VITALS: Ht 172.7 cm; Wt 136.4 kg
[~2024-01-17 01:31] MED LIST changes: +ANTIVERT 25MG25 MG PO; +KLONOPIN 0.5MG0.5 MG PO; +KLONOPIN 1MG1 MG PO; +LEVAQUIN 750MG750 M1 PO; +LIORESAL 1010 MG/TAB PO; +MIRALAX PA17 GM/Dose PO; +NEURONTIN600 MG/TAB PO; +PREDNISONE20 MG PO; +PULMICORT0.5 MG/2 M IH; +ROCEPHIN VIA1 G/VIAL INJ
[2024-01-17 01:34] VITALS: TEMP 97.9
[2024-01-17 02:06] LABS: HEMATOCRIT 46.1 % (42.0-52.0); HEMOGLOBIN 15.6 g/dl (13.5-18.0); MEAN CELL VOLUME 102 fl (80.0-100.0); MEAN CORPUSCULAR HEMOGLOBIN 34 pg (27-31); MEAN CORPUSCULAR HGB CONC 34 g/dl (33.0-37.0); MEAN PLATELET VOLUME 9.1 fl (7.4-10.4); PLATELET COUNT 152 K/mm3 (130-400); RED BLOOD COUNT 4.53 M/mm3 (4.20-5.60); REDCELL DISTRIBUTION WIDTH-CV 13.4 % (11.5-14.5)
[2024-01-17] MEDS ORDERED: HYDROcodone/Acetaminophen 10-325 MG TAB PO ONE (02:15)
[2024-01-17 02:24] LABS: ALBUMIN 3.3 g/dL (3.4-4.8); BILIRUBIN,TOTAL 1.3 mg/dL (0.2-1.2); CREATININE, serum 0.94 mg/dL (0.72-1.25); MAGNESIUM 1.7 mg/dL (1.6-2.6); POTASSIUM 4.5 mEq/L (3.5-4.5); TOTAL PROTEIN 7.3 g/dl (6.2-8.1)
[2024-01-17 02:30] LABS: TROPONIN-I 0.027 ng/mL (0.00-0.033)
[2024-01-17 02:31] LABS: BAND 2 % (0-10); EOSINOPHIL 1 % (0-4); LYMPHOCYTE 19 % (20.0-51.0); METAMYELOCYTE 1 % (0-0); NEUTROPHILS 74 % (42.0-75.2); NUCLEATED RED BLOOD CELL 1 (0-6); PLATELET ESTIMATE NORMAL (NORMAL)
[2024-01-17 06:07] VITALS: BP 138/90; PULSE 69
== END 2024-01-17 06:07 | disposition home or self-care (01) ==
LOC: COL.ER 01:31
PROVIDERS: Emergency Medicine
DX: J96.01 Acute respiratory failure with hypoxia (principal); F17.200 Nicotine dependence, unspecified, uncomplicated

== ENCOUNTER 2024-01-28 16:38 | Inpatient (IN) | payer MEDICARE, MEDICAID ==
[2024-01-28] VITALS (81 sets, daily range): O2SAT 91–97
[~2024-01-28] VITALS: Ht 170.2 cm; Wt 142.1 kg
[~2024-01-28 16:38] MED LIST changes: -VISTARIL 2525 MG/CAP PO
[2024-01-28 17:04] LABS: ARTERIAL BLD GAS O2 SATURATION 94.2 % (92-100); ARTERIAL BLD GAS TCO2 CT 35.1; ARTERIAL BLOOD GAS BASE EXCESS 6.7 (-2-2); ARTERIAL BLOOD GAS HCO3 33.4 meq/L (22-26); ARTERIAL BLOOD GAS PO2 73.1 mmHg (80-100)
[2024-01-28 17:08] LABS: BASO % 0.2 % (0.0-2.0); GRAN # 12.9 K/mm3 (1.4-6.5); GRAN % 87.7 % (42.2-75.2); MEAN CELL VOLUME 100 fl (80.0-100.0); MEAN CORPUSCULAR HEMOGLOBIN 35 pg (27-31); MEAN CORPUSCULAR HGB CONC 35 g/dl (33.0-37.0); MEAN PLATELET VOLUME 9.6 fl (7.4-10.4); MONO # 0.6 K/mm3 (0.1-0.6); MONO % 3.8 % (1.7-9.3); PLATELET COUNT 141 K/mm3 (130-400); RED BLOOD COUNT 4.58 M/mm3 (4.20-5.60); REDCELL DISTRIBUTION WIDTH-CV 12.9 % (11.5-14.5)
[2024-01-28] MEDS ORDERED: Furosemide 100 MG/10 ML VIAL IV ONE (17:15)
[2024-01-28 17:22] LABS: ALBUMIN 3.3 g/dL (3.4-4.8); BILIRUBIN,TOTAL 1.4 mg/dL (0.2-1.2); CALCIUM 9.6 mg/dL (8.4-10.2); CREATININE, serum 0.93 mg/dL (0.72-1.25); MAGNESIUM 1.7 mg/dL (1.6-2.6); POTASSIUM 4.4 mEq/L (3.5-4.5); TOTAL PROTEIN 6.9 g/dl (6.2-8.1)
[2024-01-28 17:29] LABS: TROPONIN-I 0.029 ng/mL (0.00-0.033)
[2024-01-28] MEDS ORDERED: dexAMETHasone 10 MG/ML VIAL IV ONE (18:15)
[2024-01-28] MEDS ORDERED: Albuterol/Ipratropium 3 MG-0.5 MG/3 ML Neb Soln IH SCH (18:15)
[2024-01-28 18:24] LABS: ARTERIAL BLD GAS O2 SATURATION 88.3 % (92-100); ARTERIAL BLD GAS TCO2 CT 34.9; ARTERIAL BLOOD GAS BASE EXCESS 6.4 (-2-2); ARTERIAL BLOOD GAS HCO3 33.2 meq/L (22-26); ARTERIAL BLOOD GAS PCO2 55.1 mmHg (35-45); ARTERIAL BLOOD GAS PO2 56.5 mmHg (80-100)
[2024-01-28] MEDS ORDERED: Cefepime 2 G in Water For Injection,Sterile 20 ML IV ONE (18:30)
[2024-01-28] MEDS ORDERED: Heparin 5,000 UNITS/ML 1 ML VIAL IV ONE (19:45)
[2024-01-28] MEDS ORDERED: Heparin/D5W 250 ML IV SCH (19:45)
[2024-01-28] MEDS ORDERED: Heparin 5,000 UNITS/ML 1 ML VIAL IV PRN (19:45)
[2024-01-28] MEDS ORDERED: Albuterol/Ipratropium 3 MG-0.5 MG/3 ML Neb Soln IH PRN (20:15)
[2024-01-28] MEDS ORDERED: Budesonide Neb Susp 0.5 MG/2 ML AMP IH SCH (20:15)
[2024-01-28 20:44] LABS: ARTERIAL BLD GAS O2 SATURATION 97.1 % (92-100); ARTERIAL BLD GAS TCO2 CT 35.4; ARTERIAL BLOOD GAS BASE EXCESS 7.7 (-2-2); ARTERIAL BLOOD GAS HCO3 33.8 meq/L (22-26); ARTERIAL BLOOD GAS PCO2 51.5 mmHg (35-45); ARTERIAL BLOOD GAS PO2 89.8 mmHg (80-100); ARTERIAL BLOOD GAS pH 7.44 (7.35-7.45)
[2024-01-28 20:51] LABS: INR 1.1 (0.8-3.0); PROTHROMBIN TIME 11.5 SECONDS (9.7-12.8)
[2024-01-28 20:53] LABS: PARTIAL THROMBOPLASTIN TIME 26.8 SECONDS (26.0-37.0)
[2024-01-28] MEDS ORDERED: LEVAQUIN 5500 MG/TA1 PO (21:30)
[2024-01-28] MEDS ORDERED: Prazosin 1 MG CAP PO SCH (21:32)
[2024-01-28] MEDS ORDERED: Atorvastatin 40 MG TAB PO SCH (21:32)
[2024-01-28] MEDS ORDERED: ZOLOFT 25MG25 MG PO (21:37)
[2024-01-28] MEDS ORDERED: MUCINEX 60600 MG/TA1 PO (21:41)
[2024-01-28] MEDS ORDERED: guaiFENesin ER 600 MG **** subs to guaiFENesin 200 MG PO SCH (21:42)
[2024-01-28] MEDS ORDERED: Meclizine 25 MG TAB PO SCH (21:44)
[2024-01-28] MEDS ORDERED: HYDROcodone/Acetaminophen 7.5-325 MG TAB PO PRN (21:45)
[2024-01-28] MEDS ORDERED: NICODERM C21 MG/PATC TD (21:46)
[2024-01-28] MEDS ORDERED: INDERAL 20MG20 MG PO (21:46)
[2024-01-28] MEDS ORDERED: LASIX 40MG TABL40 MG PO (21:47)
[2024-01-28] MEDS ORDERED: CYMBALTA 20MG20 MG PO (21:51)
[2024-01-28] MEDS ORDERED: FLONASEALLERGY NS (21:52)
[2024-01-28] MEDS ORDERED: ZOFRAN 4MG T4 MG/TAB PO (21:52)
[2024-01-28] MEDS ORDERED: ALBUTEROL0.83 MG/ML IH (21:53)
[2024-01-28] MEDS ORDERED: TRELEGY ELLIPT1 EAC1 IH (21:53)
[2024-01-28] MEDS ORDERED: ZITHROMAX 250M250 MG PO (21:53)
[2024-01-28] MEDS ORDERED: B-121000 MCG PO (21:54)
[2024-01-28] MEDS ORDERED: MASON NATURAL2000 IU PO (21:54)
[2024-01-28] MEDS ORDERED: BIOFREEZE85 GM TP (21:55)
[2024-01-28] MEDS ORDERED: guaiFENesin Oral Soln 200 MG/10 ML UD PO PRN (22:00)
[2024-01-28] MEDS ORDERED: Acetaminophen 325 MG TAB PO PRN (22:15)
[2024-01-28] MEDS ORDERED: methylPREDNISolone Sod Succ 125 MG/2 ML VIAL IV SCH (22:15)
[2024-01-28] MEDS ORDERED: Doxycycline Hyclate 100 MG in NS 150 ML IV SCH (22:15)
[2024-01-28] MEDS ORDERED: Dextrose 50% Water 25 GM/50 ML SYRINGE IV PRN (22:30)
[2024-01-28] MEDS ORDERED: Glucagon 1 MG VIAL IM PRN (22:30)
[2024-01-28] MEDS ORDERED: Dextrose (Glucose) 15 GM (4 x 3.75 GM) Chewable TABLET PACK PO PRN (22:30)
[2024-01-28 23:21] LABS: COLLECTION METHOD CATHETER
[2024-01-28 23:32] LABS: URINE APPEARANCE CLOUDY (CLEAR/HAZY); URINE BLOOD 3+ (NEGATIVE); URINE COLOR ORANGE (YELLOW); URINE GLUCOSE NEGATIVE (NEGATIVE); URINE KETONE NEGATIVE (NEGATIVE); URINE NITRATE NEGATIVE (NEGATIVE); URINE PROTEIN(semi-quant) 1+ (NEGATIVE); URINE UROBILINOGEN 0.2 E.U/dL (0.2-1.0)
[2024-01-29] VITALS (1256 sets, daily range): BP systolic 107–122; BP diastolic 65–96; PULSE 67–81; TEMP 97.4–100.4; O2SAT 86–100
[2024-01-29] MEDS ORDERED: Insulin Lispro (HumaLOG) SQ SCH
[2024-01-29] MEDS ORDERED: Albuterol/Ipratropium 3 MG-0.5 MG/3 ML Neb Soln IH SCH (02:00)
--- NOTE | 2024-01-29 02:48 | NUR ---
PT REMAINS ORIENTED TO PERSON AND PLACE, REORIENTED TO SITUATION AND TIME. PT DOES NOT KNOW SON IS IN [facility]. SON REQUESTED PT NOT BE INFORMED. BIPAP WAS NOT REMOVED TO HAVE PT PERFORM I/S. INR WAS 2.27. THIS VALUE NOT CALLED TO PROVIDER. PROTOCOL FOLLOWED. DRIP STOPPED AND WILL RECHECK LAB AT 0400. PT'S HISTORY OBTAINED FROM CHART. DUE TO RESPIRATORY STATUS PT ASKED YES AND NO QUESTIONS.
[2024-01-29 04:48] LABS: HEMATOCRIT 42.3 % (42.0-52.0); HEMOGLOBIN 14.6 g/dl (13.5-18.0); MEAN CELL VOLUME 100 fl (80.0-100.0); MEAN CORPUSCULAR HEMOGLOBIN 35 pg (27-31); MEAN CORPUSCULAR HGB CONC 35 g/dl (33.0-37.0); MEAN PLATELET VOLUME 10.2 fl (7.4-10.4); PLATELET COUNT 122 K/mm3 (130-400); RED BLOOD COUNT 4.23 M/mm3 (4.20-5.60)
[2024-01-29 05:03] LABS: CALCIUM 8.7 mg/dL (8.4-10.2); CREATININE, serum 1.11 mg/dL (0.72-1.25); POTASSIUM 4.3 mEq/L (3.5-4.5)
[2024-01-29 05:13] LABS: PARTIAL THROMBOPLASTIN TIME 157.7 SECONDS (26.0-37.0)
[2024-01-29 05:56] LABS: BAND 5 % (0-10); LYMPHOCYTE 7 % (20.0-51.0); NEUTROPHILS 85 % (42.0-75.2); PLATELET ESTIMATE NORMAL (NORMAL)
[2024-01-29 06:33] LABS: PARTIAL THROMBOPLASTIN TIME 77.9 SECONDS (26.0-37.0)
[2024-01-29] MEDS ORDERED: Formoterol Neb Soln 20 MCG/2 ML UD IH SCH (07:00)
[2024-01-29] MEDS ORDERED: Docusate Sodium 100 MG CAP PO SCH (09:00)
[2024-01-29] MEDS ORDERED: Nicotine 21 MG DAILY PATCH TD SCH (09:00)
[2024-01-29] MEDS ORDERED: Baclofen 10 MG TAB PO SCH (09:00)
[2024-01-29] MEDS ORDERED: Fluticasone/Umeclidinium/Vilanterol **** subs to Budesonide + Umeclid/Vilant IH SCH (09:00)
[2024-01-29] MEDS ORDERED: Gabapentin 300 MG CAP PO SCH (09:00)
[2024-01-29] MEDS ORDERED: guaiFENesin 200 MG TAB PO SCH (09:00)
[2024-01-29] MEDS ORDERED: Cholecalciferol (Vit D3) 25 MCG (1,000 Units) TAB PO SCH (09:00)
[2024-01-29] MEDS ORDERED: DULoxetine 20 MG CAP PO SCH (09:00)
[2024-01-29] MEDS ORDERED: Cyanocobalamin (Vit B-12) 1,000 MCG TAB PO SCH (09:00)
[2024-01-29] MEDS ORDERED: Folic Acid 1 MG TAB PO SCH (09:00)
[2024-01-29] MEDS ORDERED: Pantoprazole 40 MG in NS 10 ML IV SCH (09:00)
[2024-01-29] MEDS ORDERED: Furosemide 40 MG TAB PO SCH (09:00)
[2024-01-29] MEDS ORDERED: clonazePAM 0.5 MG TAB PO SCH (09:00)
[2024-01-29] MEDS ORDERED: Umeclidinium/Vilanterol 62.5-25 MCG INHALATION/INHALER IH SCH (09:00)
[2024-01-29] MEDS ORDERED: Loratadine 10 MG TAB PO SCH (09:00)
[2024-01-29] MEDS ORDERED: Fluticasone Nasal 50 MCG/Spray 16 GM BOTTLE NS SCH (09:00)
--- NOTE | 2024-01-29 13:58 | NUR ---
Salvage Engineer spoke with RN and will attempt to meet with patient tomorrow. He is currently on bipap and very drowsy. SHADIA contacted patient's nursing facility, [facility] and spoke with Chacho. Patient is in LTC and his DPOA-HC is his son, Rafael (ph#[phone]). SHADIA faxed clinical updates for [facility] to review. SHADIA was then contacted by Victorina at [facility] who advised patient's son, Rafael attempted suicide yesterday by purposely wrecking his care. Rafael was arrested and is currently in alf. Victorina stated patient does not know this and they do not want to tell him yet due to his medical status. SHADIA updated bedside RN. Discharge Plan: [facility]
[2024-01-29] MEDS ORDERED: Propranolol 20 MG TAB PO SCH (14:00)
[2024-01-29 14:32] LABS: PARTIAL THROMBOPLASTIN TIME > 400.0 SECONDS (26.0-37.0)
--- NOTE | 2024-01-29 15:09 | NUR ---
Talked w/ pt's nurse, pt still too unstable for scan desaturates quickly, will ball back tomorrow to check on status.
[2024-01-29] MEDS ORDERED: Iohexol 350 - 100 ML VIAL IV ONE (16:01)
--- NOTE | 2024-01-29 19:30 | NUR ---
Received report from day shift nurse. Vitals are stable at this time. Pt is sleeping and has the BiPAP on at this time. Cortez is in place with no kinks in tubing. Currently has ABX running and no IVF's. Pt is lying in bed with bed in low position, bed alarms on and call light within reach. Will continue with pt care.
[2024-01-29] MEDS ORDERED: hydrOXYzine HCl 25 MG TAB PO SCH (21:00)
[2024-01-29] MEDS ORDERED: Sertraline 50 MG TAB PO SCH (21:00)
[2024-01-29] MEDS ORDERED: dexAMETHasone 10 MG/ML VIAL IV SCH (21:00)
[2024-01-30] VITALS (962 sets, daily range): BP systolic 105–126; BP diastolic 68–84; PULSE 58–73; TEMP 97.8–98.7; O2SAT 84–99
--- NOTE | 2024-01-30 04:02 | NUR ---
Between [id number] this RT was able to wean the FiO2 from 100% down to 85%. Oxygen saturations remain >90%. Will continue to wean as tolerated.
--- NOTE | 2024-01-30 04:15 | NUR ---
Received report from Phyllis Dalton RN. Patient resting quietly in bed. Remains on BiPap, receiving 85% FiO2, tolerating well. All vitals within normal limits. Cortez to dependent drainage. No IVF or other medications infusing at this time. Patient does not appear in evident pain or discomfort.
[2024-01-30 04:37] LABS: BASO % 0.1 % (0.0-2.0); GRAN # 12.2 K/mm3 (1.4-6.5); GRAN % 89.8 % (42.2-75.2); HEMATOCRIT 41.8 % (42.0-52.0); LYMPH # 0.8 K/mm3 (1.2-3.4); LYMPH % 6.1 % (20.0-51.0); MEAN CELL VOLUME 102 fl (80.0-100.0); MEAN CORPUSCULAR HEMOGLOBIN 34 pg (27-31); MEAN CORPUSCULAR HGB CONC 34 g/dl (33.0-37.0); MEAN PLATELET VOLUME 9.5 fl (7.4-10.4); MONO # 0.4 K/mm3 (0.1-0.6); MONO % 2.9 % (1.7-9.3); PLATELET COUNT 130 K/mm3 (130-400); RED BLOOD COUNT 4.11 M/mm3 (4.20-5.60); REDCELL DISTRIBUTION WIDTH-CV 12.9 % (11.5-14.5)
[2024-01-30 04:46] LABS: CALCIUM 9.3 mg/dL (8.4-10.2); CREATININE, serum 1.04 mg/dL (0.72-1.25); POTASSIUM 3.9 mEq/L (3.5-4.5)
[2024-01-30] MEDS ORDERED: Insulin Lispro (HumaLOG) SQ SCH (08:45)
[2024-01-30] MEDS ORDERED: dexAMETHasone 10 MG/ML VIAL IV SCH (09:00)
--- NOTE | 2024-01-30 12:30 | NUR ---
It Associate met with patient to review discharge plan. Patient reported he is happy at [facility] and wants to return there. SW sent clinical updates to [facility] via secure email.
--- NOTE | 2024-01-30 12:46 | NUR ---
Molding Manager was contacted by Victorina at [facility] who advised patient's son, Rafael bailed out of custodial today and has a new cell phone number, #[phone]. SW contacted Rafael to provide update and provided phone number to the ICU.
[2024-01-30] MEDS ORDERED: Furosemide 40 MG/4 ML VIAL IV SCH (13:45)
--- NOTE | 2024-01-30 14:17 | NUR ---
PT IS RESTING IN THE BED ON THE BIPAP. HE IS ALERT AND ORIENTED. HE HAS A ERNANDEZ CATHETER DRAINING YELLOW URINE. HE HAS A PICC WITH NOTHING CONTINUOUS INFUSING.
--- NOTE | 2024-01-30 19:30 | NUR ---
PT STABLE ON ROUNDS. RESTING QUIETLY. WATCHING TV. CURRENTLY ON AIRVO. SO SIGN OF RESPIRATORY DISTRESS.
[2024-01-31] VITALS (465 sets, daily range): BP systolic 111–150; BP diastolic 74–95; PULSE 60–87; TEMP 97.5–98.8; O2SAT 85–99
--- NOTE | 2024-01-31 03:22 | NUR ---
RESPIRATIONS EVEN AND UNLABORED. NOT SIGN OF DISTRESS AT THIS TIME. CONTINUE PLAN OF CARE.
[2024-01-31 03:34] LABS: ARTERIAL BLD GAS O2 SATURATION 96.5 % (92-100); ARTERIAL BLD GAS TCO2 CT 32.2; ARTERIAL BLOOD GAS BASE EXCESS 6.1 (-2-2); ARTERIAL BLOOD GAS HCO3 30.8 meq/L (22-26); ARTERIAL BLOOD GAS PCO2 44.4 mmHg (35-45); ARTERIAL BLOOD GAS PO2 87.3 mmHg (80-100); ARTERIAL BLOOD GAS pH 7.46 (7.35-7.45)
[2024-01-31 08:09] LABS: HEMATOCRIT 39.7 % (42.0-52.0); HEMOGLOBIN 13.8 g/dl (13.5-18.0); MEAN CELL VOLUME 99 fl (80.0-100.0); MEAN CORPUSCULAR HEMOGLOBIN 34 pg (27-31); MEAN CORPUSCULAR HGB CONC 35 g/dl (33.0-37.0); MEAN PLATELET VOLUME 9.7 fl (7.4-10.4); PLATELET COUNT 122 K/mm3 (130-400); RED BLOOD COUNT 4.03 M/mm3 (4.20-5.60); REDCELL DISTRIBUTION WIDTH-CV 12.5 % (11.5-14.5)
[2024-01-31 08:26] LABS: CALCIUM 8.8 mg/dL (8.4-10.2); CREATININE, serum 0.94 mg/dL (0.72-1.25); POTASSIUM 3.5 mEq/L (3.5-4.5)
[2024-01-31] MEDS ORDERED: dexAMETHasone 4 MG TAB PO SCH (09:29)
--- NOTE | 2024-01-31 10:26 | NUR ---
O627 REJI WASTED W/ SOURAV DOWD RN AND THIS NURSE DC PANIAGUA. PATIENT DID NOT RCV 0627 DOSE IT APPEARS IN THE EMAR. PATIENT LAST DOSE AT 1027
--- NOTE | 2024-01-31 12:30 | NUR ---
PT ALERT AND ORIENTED, HAS A PLEASANT DEMEANOR AND IS RESPONDING APPROPRIATELY. AT 0800 PATIENT WAS ON AIRVO AT 55L AT 60% CURRENTLY, AT 1230 PATIENT IS NC AT 5L AND MAINTAINING O2 IN THE LOW 90S
--- NOTE | 2024-01-31 13:00 | NUR ---
Police Detective contacted Chacho at [facility] and sent clinical updates via secure email. Patient has orders to move up to the floor.
--- NOTE | 2024-01-31 14:30 | NUR ---
Pt arrived to medical floor from ICU by wheelchair. Report received from WIDE AREA NETWORK SYSTEMS ADMINISTRATOR Phyllis. Pt awake and alert x4. Shift assessment completed. VSS. Oriented pt to room, call light, and bathroom. RUE PICC in place, dressing CDI. Pt denies pain rating 0/10. O2 in place via NC at 5L. No irriation to nares noted. Skin behind ears intact. BLE +1 edema noted. Pt has no request at this time. Call light within reach.
--- NOTE | 2024-01-31 18:59 | NUR ---
PATIENT SITTING UP IN BED WITH TV OFF WITH NO FAMILY PRESENT WITH NO ACUTE DISTRESS NOTED. PATIENT ON 3 LITERS OF OXYGEN VIA HIGH CAS NC. PICC LINE TO RIGHT UPPER ARM INTACT WITH NO COMPLICATIONS NOTED. ERNANDEZ CATH INTACT, PATENT, AND DRAINING CLEAR YELLOW URINE. BEDSIDE SHIFT REPORT COMPLETED WITH ALVIN AT THIS TIME. PATIENT REQUESTED PEPSI AND WAS GIVEN DIET PEPSI. PATIENT DENIES ANY OTHER NEEDS. BED IN LOW POSITION WITH WHEELS LOCKED WITH RAILS UP X3 AND CALL LIGHT WITHIN REACH.
--- NOTE | 2024-01-31 21:35 | NUR ---
PATIENT RESTING IN BED WITH TV OFF WITH NO FAMILY PRESENT WITH NO ACUTE DISTRESS NOTED. PATIENT ON 4 LITERS OF OXYGEN VIA HIGH CAS NC. PATIENT STATED HE REFUSED BIPAP AND "I DON'T WANT TO WEAR THAT TONIGHT." PICC LINE TO RIGHT UPPER ARM INTACT WITH NO COMPLICATIONS NOTED. ERNANDEZ CATH INTACT, PATENT, AND DRAINING CLEAR YELLOW URINE. ASSESSMENT AND MEDICATION ADMINISTRATION COMPLETED AT THIS TIME. PATIENT TOLERATED WELL. ALL NEEDS MET. BED IN LOW POSITION WITH WHEELS LOCKED WITH RAILS UP X3 AND CALL LIGHT WITHIN REACH.
[2024-02-01] VITALS (7 sets, daily range): BP systolic 118–153; BP diastolic 70–99; PULSE 57–71; TEMP 97.5–97.6
--- NOTE | 2024-02-01 07:00 | NUR ---
Pt sleeping in bed. Call light in reach and bed alarm on.
--- NOTE | 2024-02-01 08:45 | NUR ---
Pt laying in bed. A&Ox4. S1S2. Clear lungs. ABD round, soft, non-tender with audible bowel sounds. Palpable pulses in all extremities with fair strenth. Pt reports pain in lower back and down bilateral lower extremities. Pt reports it is nothing new but is 7/10. Administered pain meds. Pt has Cortez catheter in place. No further needs at this time. Call light in reach and bed alarm on.
[2024-02-01] MEDS ORDERED: PERFOROMIS20 MCG/2 M IH (10:01)
[2024-02-01] MEDS ORDERED: TYLENOL 325MG325 MG PO (10:02)
[2024-02-01] MEDS ORDERED: DECADRON 4MG TAB4 MG PO (10:03)
[2024-02-01] MEDS ORDERED: AMOXICILLIN 8751 TAB PO (10:10)
[2024-02-01] MEDS ORDERED: DOXYCYCLINE 10100 MG PO (10:10)
[2024-02-01] MEDS ORDERED: INSULIN HUMA100 U/ML SQ (10:13)
[2024-02-01] MEDS ORDERED: Insulin Lispro (HumaLOG) SQ SCH (12:00)
--- NOTE | 2024-02-01 12:41 | NUR ---
SHADIA met with patient and completed IM and faxed over packet for discharge to review with Chris. Pending review with Chris at this time.
--- NOTE | 2024-02-01 13:42 | NUR ---
Pt transported to [facility] via . Report was called by this RN to DC Tierney at [facility]. No further questions or concerns at this time. Kelsy has this nurse's number if any concerns or questions occur.
== END 2024-02-01 13:44 | DRG 871 ==
LOC: COL.ER 16:38 → ICU 20:19 → MEDICAL 01-31 14:15
PROVIDERS: Emergency Medicine; Internal Medicine; Internal Medicine Pulmonary Disease; Nurse Practitioner Family; ADMIT Internal Medicine
PROC: 5A09457 Assistance with Respiratory Ventilation, 24-96 Consecutive Hours, Continuous Positive Airway Pressure (ICD-10-PCS; 2024-01-28)
PROC: 02HV33Z Insertion of Infusion Device into Superior Vena Cava, Percutaneous Approach (ICD-10-PCS; principal; 2024-01-29)
DX: A41.9 Sepsis, unspecified organism (principal); J96.22 Acute and chronic respiratory failure with hypercapnia; J44.1 Chronic obstructive pulmonary disease with (acute) exacerbation; F11.20 Opioid dependence, uncomplicated; I50.20 Unspecified systolic (congestive) heart failure; N39.0 Urinary tract infection, site not specified; J98.11 Atelectasis; E87.3 Alkalosis; Z68.42 Body mass index [BMI] 45.0-49.9, adult; E78.5 Hyperlipidemia, unspecified; I48.0 Paroxysmal atrial fibrillation; F41.9 Anxiety disorder, unspecified; F32.A Depression, unspecified; F41.0 Panic disorder [episodic paroxysmal anxiety]; F20.9 Schizophrenia, unspecified; G89.29 Other chronic pain; M51.35 Other intervertebral disc degeneration, thoracolumbar region; M48.00 Spinal stenosis, site unspecified; R42 Dizziness and giddiness; E66.01 Morbid (severe) obesity due to excess calories; Z20.822 Contact with and (suspected) exposure to COVID-19; E11.65 Type 2 diabetes mellitus with hyperglycemia
CPT/HCPCS: C1751; J0692; J1100; J1644; J1650; J1815; J1940; J1956; J2470; J2543; J2919; J8540; Q9967